=== PATIENT | male | born 1950 | race American Indian/Alaskan Native ===

== ENCOUNTER 2017-01-16 18:25 | Observation (INO) | payer MEDICARE ==
[2017-01-16 19:24] LABS: Basophils % (Auto) 0.3 % (0.0-1.8); Eosinophils % (Auto) 2.8 % (0.0-4.3); Hematocrit 37.6 % (35.5-45.6); Hemoglobin 12.6 gm/dl (11.8-15.2); Mean Corpuscular HGB Conc 34 % (32-34); Mean Corpuscular Hemoglobin 32 pg (28-32); Mean Corpuscular Volume 94 fl (84-94); Platelet Count 177 K/mm3 (140-440); Red Cell Distribution Width 12.9 % (13.2-15.2)
[2017-01-16 19:39] LABS: Anion Gap 19 mmol/L; Blood Urea Nitrogen 16 mg/dL (9-20); Calcium 8.8 mg/dL (8.4-10.2); Carbon Dioxide 25 mmol/L (22-30); Chloride 101.5 mmol/L (98-107); Glucose 173 mg/dL (75-100); Potassium 3.5 mmol/L (3.6-5.0); Sodium 142 mmol/L (137-145)
[2017-01-16 20:17] LABS: Bilirubin,Urine NEG (Negative); Blood,Urine MOD (Negative); Ketones,Urine NEG (Negative); Leukocyte Esterase,Urine NEG (Negative); Mucus,Urine FEW /HPF; Nitrite,Urine NEG (Negative); Protein,Urine <15 mg/dL mg/dL (Negative); Urobilinogen,Urine < 2.0 mg/dL (<2.0)
[2017-01-16] MEDS ORDERED: TYLENOL ONE (21:00)
[2017-01-16] MEDS ORDERED: TYLENOL PO ONE (21:02)
--- NOTE | 2017-01-16 23:47 | Emergency Department Report ---
ED Chest Pain HPI - General Chief Complaint: Chest Pain Stated Complaint: CHEST AND BACK PAIN Time Seen by Provider: 01/16/17 23:18 Source: patient Mode of arrival: Ambulatory Limitations: No Limitations - History of Present Illness Initial Comments: This is a 66-year-old Afro-Pakistani male presents to the emergency department from home with complaint of some left lower chest pain/shortness as been going on since Tuesday but worsened today. There is some radiation towards the back. He denies any shortness of breath, nausea, vomiting, fever or diaphoresis. He has not taken anything for symptoms prior to presentation. He has a past medical history of hypertension, high cholesterol, BPH, edema and a remote history of left kidney cancer. His primary care doctor is Dr. Ruiz. He does not have a label sewer. No recent travel or sick contacts at home. He denies any history of VA, CVA, PE/DVT. Severity scale (0 -10): 7 - Related Data Home Medications Medication Instructions Recorded Confirmed Last Taken Atenolol [Tenormin] 100 mg PO DAILY 01/16/17 01/16/17 Unknown Furosemide [Lasix TAB] 40 mg PO QDAY 01/16/17 01/16/17 Unknown Sildenafil Citrate [Viagra] 100 mg PO QDAY PRN 01/16/17 01/16/17 Unknown Valsartan/Hydrochlorothiazide 1 mg PO DAILY 01/16/17 01/16/17 Unknown [Diovan Hct 320-25 mg] Allergies Allergy/AdvReac Type Severity Reaction Status Date / Time No Known Allergies Allergy Unverified 01/16/17 18:42 GISSELL score - Gissell Score Age > 65: (1) Yes Aspirin use within the Past 7 Days: (0) No 3 or more CAD Risk Factors: (0) No 2 or more Angina events in past 24 hrs: (1) Yes Known CAD with more than 50% Stenosis: (0) No Elevated Cardiac Markers: (0) No ST Deviation Greater than 0.5mm: (0) No GISSELL Score: 2 ED Review of Systems ROS: Stated complaint: CHEST AND BACK PAIN Other details as noted in HPI Comment: All other systems reviewed and negative Constitutional: denies: chills, fever Eyes: denies: eye pain, eye discharge, vision change ENT: denies: ear pain, throat pain Respiratory: denies: cough, shortness of breath, wheezing Cardiovascular: chest pain. denies: palpitations Gastrointestinal: denies: abdominal pain, nausea, diarrhea Genitourinary: denies: urgency, dysuria Musculoskeletal: back pain. denies: arthralgia Skin: denies: rash, lesions Neurological: denies: headache, weakness, paresthesias ED Past Medical Hx - Past Medical History Hx Hypertension: Yes Additional medical history: high cholesterol,BPH,edema - Surgical History Additional Surgical History: left kidney CA-2006 - Social History Smoking Status: Never Smoker Substance Use Type: Alcohol - Medications Home Medications: Home Medications Medication Instructions Recorded Confirmed Last Taken Type Atenolol [Tenormin] 100 mg PO DAILY 01/16/17 01/16/17 Unknown History Furosemide [Lasix TAB] 40 mg PO QDAY 01/16/17 01/16/17 Unknown History Sildenafil Citrate [Viagra] 100 mg PO QDAY PRN 01/16/17 01/16/17 Unknown History Valsartan/Hydrochlorothiazide 1 mg PO DAILY 01/16/17 01/16/17 Unknown History [Diovan Hct 320-25 mg] ED Physical Exam - General Limitations: No Limitations - Other Other exam information: GENERAL: The patient is well-developed well-nourished. HEENT: Normocephalic. Atraumatic. Extraocular motions are intact. Patient has moist mucous membranes. Pupils equal reactive to light bilaterally. NECK: Supple. Trachea is benign. CHEST/LUNGS: Clear to auscultation. There is no respiratory distress noted. Patient does have some reproducible tenderness palpation to the left side of the chest wall just below the pectoral. HEART/CARDIOVASCULAR: Regular. There is no tachycardia. There is no gallop rub or murmur. ABDOMEN: Abdomen is soft, nontender. Patient has normal bowel sounds. There is no abdominal distention. Obese habitus. SKIN: There is no rash. There is no edema. There is no diaphoresis. NEURO: The patient is awake, alert, and oriented. The patient is cooperative. The patient has no focal neurologic deficits. The patient has normal speech. MUSCULOSKELETAL: There is no tenderness or deformity. There is no limitation range of motion. There is no evidence of acute injury. ED Course Vital Signs 01/16/17 01/16/17 01/16/17 18:36 20:50 21:06 Temperature 98.4 F 98.9 F Pulse Rate 61 59 L Respiratory 20 18 18 Rate Blood Pressure 181/107 195/114 Blood Pressure [Left] O2 Sat by Pulse 95 96 Oximetry 01/16/17 01/16/17 01/17/17 22:06 23:19 00:43 Temperature 98.5 F Pulse Rate 54 L 52 L Respiratory 18 20 Rate Blood Pressure 178/104 Blood Pressure 188/104 [Left] O2 Sat by Pulse 100 Oximetry 01/17/17 01/17/17 00:58 01:59 Temperature Pulse Rate 54 L Respiratory 18 18 Rate Blood Pressure Blood Pressure 151/105 [Left] O2 Sat by Pulse 100 100 Oximetry ED Medical Decision Making - Lab Data Result diagrams: 01/16/17 19:09 01/16/17 19:09 - EKG Data -: EKG Interpreted by Me EKG shows normal: sinus rhythm, axis (LAD), intervals, QRS complexes (LVH), ST- T waves Rate: normal - EKG Data When compared to previous EKG there are: previous EKG unavailable Interpretation: LVH - Radiology Data Radiology results: report reviewed, image reviewed interpreted by me: Chest x-ray did not show any acute process. Heart is normal shape and size. No effusions. No pneumothorax. No signs of pneumonia seen. CT angiography of the chest shows that the heart is enlarged. There is no pericardial effusion. There is no pulmonary embolism. The ascending thoracic aorta is ectatic at 4.3 cm in diameter. There is no dissection. Suboptimal inspiration. Mild fibrotic changes. No acute infiltrates. - Medical Decision Making 66-year-old male presents emergency Department with left-sided chest pain. So far patient has had negative troponins [address] angiography that did not show any pulmonary and wasn't. However the patient continues to left-sided chest pain with the risk factors of hypertension, advanced age, hyperlipidemia and he has not had a stress test in many years. For this reason the patient will be admitted to the hospital for further evaluation and possible cardio consultation. Patient has been accepted for admission by the hospitalist, Dr. Bravo. - Differential Diagnosis VA, PE, costochondritis, CHF, pneumonia Critical Care Time: No Critical care attestation.: If time is entered above; I have spent that time in minutes in the direct care of this critically ill patient, excluding procedure time. ED Disposition Clinical Impression: Chest pain, rule out acute myocardial infarction Chest pain Qualifiers: Chest pain type: unspecified Qualified Code(s): R07.9 - Chest pain, unspecified Hypertension Qualifiers: Hypertension type: essential hypertension Qualified Code(s): I10 - Essential ( primary) hypertension Disposition: OP ADMITTED IP TO THIS HOSP Is pt being admited?: Yes Does the pt Need Aspirin: Yes Condition: Stable Instructions: Chest Pain (ED), Hypertension (ED) Referrals: AYO RUIZ MD [Primary Care Provider] - 3-5 Days Time of Disposition: 05:23
[2017-01-17] MEDS ORDERED: NORMODYNE IV ONE (00:10)
[2017-01-17] MEDS ORDERED: MORPHINE IV ONE (00:10)
[2017-01-17] MEDS ORDERED: APRESOLINE ONE (00:42)
[2017-01-17] MEDS ORDERED: APRESOLINE IV ONE (00:55)
[2017-01-17] MEDS ORDERED: NACL ONE (02:05)
--- NOTE | 2017-01-17 03:55 | Cat Scan Report ---
FINAL REPORT PROCEDURE: CT ANGIO CHEST TECHNIQUE: Computerized tomographic angiography of the chest was performed after the IV injection of iodinated nonionic contrast including image processing. The image data was postprocessed using 2-dimensional multiplanar reformatted (MPR) and 3-dimensional (MIP and/or volume rendered) techniques. HISTORY: CP, elevated dimer COMPARISON: No prior studies are available for comparison. FINDINGS: Heart and pericardium: The heart is enlarged. There is no pericardial effusion.. Thoracic aorta: The ascending thoracic aorta is ectatic at 4.3 centimeters in diameter. There is no dissection. Thoracic aorta is slightly tortuous.. Pulmonary vasculature: There is no pulmonary embolism.. Lymph nodes: No enlarged thoracic lymph nodes. Lungs: There is suboptimal inspiration. There are mild fibrotic changes at the lung bases. There are no acute infiltrates.. Pleural space: No effusion, thickening, or pneumothorax. Musculoskeletal structures: There are deformities of right ribs numbers 8 9 which could be due to old trauma or congenital malformation.. Upper abdominal structures: Images of the upper abdomen suggests possibility of left nephrectomy. There is a probable cyst or hemangioma left lobe of the liver measuring 15 millimeters. IMPRESSION: The heart is enlarged. There is no pericardial effusion.. The ascending thoracic aorta is ectatic at 4.3 centimeters in diameter. There is no dissection. Thoracic aorta is slightly tortuous.. There is no pulmonary embolism.. There is suboptimal inspiration. There are mild fibrotic changes at the lung bases. There are no acute infiltrates..
[2017-01-17] MEDS ORDERED: BABY ASPIRIN PO ONE (05:23)
[2017-01-17] MEDS ORDERED: NITROSTAT SL PRN (05:34)
[2017-01-17] MEDS ORDERED: SODIUM CHLORIDE FLUSH SYRINGE 10 ML IV PRN (05:34)
[2017-01-17] MEDS ORDERED: MORPHINE IV PRN (05:39)
[2017-01-17] MEDS ORDERED: ZOFRAN IV PRN (05:39)
--- NOTE | 2017-01-17 05:46 | History and Physical Report ---
History of Present Illness Date of examination: 01/17/17 Date of admission: Neuro 01/17/2017 Chief complaint: Chief complaint is chest pain History of present illness: History of present illness, patient is a 66-year-old male with sharp pain in the precordial area radiating to the left upper extremity which started yesterday, pain was relieved with nitroglycerin and pain medication. There is no history of diaphoresis, no history of shortness of breath, no history of nausea vomiting, there is also no history of fever or chills and no cough Past History Past Medical History: hypertension, hyperlipidemia Past Surgical History: No surgical history Social history: lives with family Family history: no significant family history Medications and Allergies Allergies Allergy/AdvReac Type Severity Reaction Status Date / Time No Known Allergies Allergy Unverified 01/16/17 18:42 Home Medications Medication Instructions Recorded Confirmed Last Taken Type Atenolol [Tenormin] 100 mg PO DAILY 01/16/17 01/16/17 Unknown History Furosemide [Lasix TAB] 40 mg PO QDAY 01/16/17 01/16/17 Unknown History Sildenafil Citrate [Viagra] 100 mg PO QDAY PRN 01/16/17 01/16/17 Unknown History Valsartan/Hydrochlorothiazide 1 mg PO DAILY 01/16/17 01/16/17 Unknown History [Diovan Hct 320-25 mg] Active Meds: Active Medications Aspirin (Ecotrin) 325 mg PO QDAY [facility] Heparin Sodium (Porcine) (Heparin) 5,000 unit SUB-Q Q8HR [facility] Nitroglycerin (Nitrostat) 0.4 mg SL Q5M PRN PRN Reason: Chest Pain Nitroglycerin (Nitro-Bid 2%) 1 inch TP Q6H [facility] PRN Reason: Protocol Sodium Chloride (Sodium Chloride Flush Syringe 10 Ml) 10 ml IV PRN PRN PRN Reason: LINE FLUSH Review of Systems Constitutional: no weight loss, no weight gain, no fever, no chills, no sweats, no anorexia, no fatigue, no weakness, no malaise, no lethargy, no chronic headaches, no poor appetite, no daytime sleepiness Eyes: bilateral: other (BILATERAL EYE SYMPTOMS) Ears, nose, mouth and throat: no ear pain, no ear discharge, no tinnitis, no decreased hearing, no nose pain, no nasal congestion, no nasal discharge, no sinus pressure, no sinus pain, no bleeding gums, no dental pain, no mouth pain, no dysphagia, no hoarseness, no sore throat, no swelling in mouth, no swelling in throat, no post-nasal drip, no headache, no vertigo, no pain front of neck, no neck fullness/pressure, no neck lump Cardiovascular: chest pain, no orthopnea, no palpitations, no rapid/irregular heart beat, no edema, no syncope, no lightheadedness, no paroxysmal nocturnal dyspnea, no claudication, no phlebitis, no high blood pressure Respiratory: no cough, no cough with sputum, no excessive sputum, no hemoptysis , no shortness of breath, no dyspnea on exertion, no pleurisy, no pain, no respiratory infections, no home oxygen Gastrointestinal: no nausea, no vomiting, no diarrhea, no constipation, no melena, no hematochezia, no loss of appetite, no early satiety, no heartburn, no jaundice, no dyspepsia/bloating, no early satiety Genitourinary Male: no dysuria, no flank pain, no urinary frequency, no urinary hesitancy, no nocturia, no impotence, no decreased libido, no testicular pain Rectal: no pain, no bleeding, no hemorrhoids, no flatulence Musculoskeletal: no neck stiffness, no neck pain, no shooting arm pain, no arm numbness/tingling, no low back pain, no shooting leg pain, no leg numbness/ tingling, no hot joints, no morning stiffness, no muscle weakness, no muscle cramps, no myalgias, no frequent falls, no fractures, no loss of height, no prior amputations Integumentary: no rash, no pruritis, no redness, no sores, no wounds, no jaundice, no boils, no growths, no bullae, no lesions, no darkening of skin, no depigmentation, no dryness, no color changes, no change in hair/nails, no brittle nails, no striae, no hirsutism, no foot/leg ulcers, no onychomycosis Neurological: no head injury, no transient paralysis, no paralysis, no weakness , no parathesias, no numbness, no tingling, no seizures, no syncope, no tremors , no headaches, no migraines, no convulsions, no aphasia, no change in speech, no change in mentation, no confusion, no memory loss, no changes in smell/taste , no gait dysfunction, no motor disturbance, no sensory deficit, no double vision, no loss of vision, no hearing difficulties, no burning pain, no paralysis, no spasticity Psychiatric: no anxiety, no memory loss, no change in sleep habits, no sleep disturbances, no insomnia, no hypersomnia, no change in appetite, no change in libido, no suicidal ideation, no disorientation, no hallucinations, no paranoia , no depression, no hopelessness, no anhedonia, no anxiety attacks, no difficulties concentrating, no confusion, no irritability, no sadness/ tearfullness, no mood swings Endocrine: no cold intolerance, no heat intolerance, no polyphagia, no excessive thirst, no polydipsia, no polyuria, no nocturia, no excessive sweating , no flushing, no increase in ring/shoe/hat size, no proptosis, no deepening of the voice, no thyroid mass, no palpatations, no high blood sugars, no low blood sugars, no recent glucocorticoid use, no fatigue Hematologic/Lymphatic: no easy bruising, no easy bleeding, no lymphadenopathy, no lymphedema, no thrombophilia, no other Allergic/Immunologic: no urticaria, no allergic rhinitis, no wheezing, no persistent infections, no anaphylaxis, no angioedema, no gluten intolerance, no seasonal allergies Exam - Constitutional Vitals: Temp Pulse Resp BP Pulse Ox 98.5 F 54 L 18 151/105 100 01/16/17 23:19 01/17/17 01:59 01/17/17 01:59 01/17/17 01:59 01/17/17 01:59 General appearance: Present: no acute distress - EENT Eyes: Present: PERRL, EOM intact ENT: hearing intact, clear oral mucosa - Neck Neck: Present: supple, normal ROM - Respiratory Respiratory effort: normal - Cardiovascular Rhythm: regular Heart Sounds: Present: S1 & S2. Absent: systolic murmur, diastolic murmur, rub , click - Extremities Extremities: no ischemia, No edema Peripheral Pulses: within normal limits - Abdominal General gastrointestinal: Present: soft, non-tender, non-distended, normal bowel sounds. Absent: tender, distended, rigid Male genitourinary: Present: deferred - Rectal Rectal Exam: deferred - Integumentary Integumentary: Present: warm, dry. Absent: erythema, jaundice, rash, clammy - Musculoskeletal Musculoskeletal: strength equal bilaterally - Psychiatric Psychiatric: appropriate mood/affect Results - Labs CBC & Chem 7: 01/16/17 19:09 01/16/17 19:09 Labs: Laboratory Last Values WBC 8.0 K/mm3 (4.5-11.0) 01/16/17 19:09 RBC 4.00 M/mm3 (3.65-5.03) 01/16/17 19:09 Hgb 12.6 gm/dl (11.8-15.2) 01/16/17 19:09 Hct 37.6 % (35.5-45.6) 01/16/17 19:09 MCV 94 fl (84-94) 01/16/17 19:09 MCH 32 pg (28-32) 01/16/17 19:09 MCHC 34 % (32-34) 01/16/17 19:09 RDW 12.9 % (13.2-15.2) L 01/16/17 19:09 Plt Count 177 K/mm3 (140-440) 01/16/17 19:09 Lymph % (Auto) 21.1 % (13.4-35.0) 01/16/17 19:09 [place] % (Auto) 9.0 % (0.0-7.3) H 01/16/17 19:09 Eos % (Auto) 2.8 % (0.0-4.3) 01/16/17 19:09 Baso % (Auto) 0.3 % (0.0-1.8) 01/16/17 19:09 Lymph # 1.7 K/mm3 (1.2-5.4) 01/16/17 19:09 [place] # 0.7 K/mm3 (0.0-0.8) 01/16/17 19:09 Eos # 0.2 K/mm3 (0.0-0.4) 01/16/17 19:09 Baso # 0.0 K/mm3 (0.0-0.1) 01/16/17 19:09 Seg Neutrophils % 66.8 % (40.0-70.0) 01/16/17 19:09 Seg Neutrophils # 5.3 K/mm3 (1.8-7.7) 01/16/17 19:09 D-Dimer 263.00 ng/mlDDU (0-234) H 01/16/17 23:46 Sodium 142 mmol/L (137-145) 01/16/17 19:09 Potassium 3.5 mmol/L (3.6-5.0) L 01/16/17 19:09 Chloride 101.5 mmol/L (98-107) 01/16/17 19:09 Carbon Dioxide 25 mmol/L (22-30) 01/16/17 19:09 Anion Gap 19 mmol/L 01/16/17 19:09 BUN 16 mg/dL (9-20) 01/16/17 19:09 Creatinine 1.0 mg/dL (0.8-1.5) 01/16/17 19:09 Estimated GFR > 60 ml/min 01/16/17 19:09 BUN/Creatinine Ratio 16.00 % 01/16/17 19:09 Glucose 173 mg/dL (75-100) H 01/16/17 19:09 Calcium 8.8 mg/dL (8.4-10.2) 01/16/17 19:09 Troponin T < 0.010 ng/mL (0.00-0.029) 01/17/17 00:36 NT-Pro-B Natriuret Pep 489.3 pg/mL (0-900) 01/16/17 21:26 Urine Color Yellow (Yellow) 01/16/17 19:51 Urine Turbidity Clear (Clear) 01/16/17 19:51 Urine pH 6.0 (5.0-7.0) 01/16/17 19:51 Ur Specific [place] 1.018 (1.003-1.030) 01/16/17 19:51 Urine Protein <15 mg/dl mg/dL (Negative) 01/16/17 19:51 Urine Glucose (UA) 50 mg/dL (Negative) 01/16/17 19:51 Urine Ketones Neg mg/dL (Negative) 01/16/17 19:51 Urine Blood Mod (Negative) 01/16/17 19:51 Urine Nitrite Neg (Negative) 01/16/17 19:51 Urine Bilirubin Neg (Negative) 01/16/17 19:51 Urine Urobilinogen < 2.0 mg/dL (<2.0) 01/16/17 19:51 Ur Leukocyte Esterase Neg (Negative) 01/16/17 19:51 Urine WBC (Auto) 2.0 /HPF (0.0-6.0) 01/16/17 19:51 Urine RBC (Auto) 5.0 /HPF (0.0-6.0) 01/16/17 19:51 Urine Mucus Few /HPF 01/16/17 19:51 Assessment and Plan - Patient Problems (1) Chest pain Current Visit: Yes Status: Acute Qualifiers: Chest pain type: unspecified Qualified Code(s): R07.9 - Chest pain, unspecified Plan to address problem: Patient will be placed on observation using chest pain pathway and will have cardiac enzymes checked every 6 hours 2 more levels, patient will be on IV morphine 2 mg every 3 hours as needed for pain and IV Zofran 4 mg every 6 hours as needed for nausea vomiting. Patient will be on Nitropaste 1 inch to anterior chest wall every 8 hours and will have a lexicon stress test done this morning. Patient will be on when necessary medications like Tylenol by mouth for fever or headache and sublingual nitroglycerin as needed for breakthrough chest pain. Patient will be on aspirin 325 mg by mouth daily and oxygen by nasal cannula by chest pain protocol the patient will be on subcutaneous heparin 5000 units every 8 hours for DVT prophylaxis. (2) Hypertension Current Visit: Yes Status: Acute Qualifiers: Hypertension type: essential hypertension Qualified Code(s): I10 - Essential (primary) hypertension
[2017-01-17] MEDS ORDERED: BABY ASPIRIN ONE (06:08)
--- NOTE | 2017-01-17 07:33 | Admit Criteria Form ---
Admission Criteria Documentation: CHEST PAIN Clinical Indications for Admission to Inpatient Care (Place 'X' for any and all applicable criteria): Admission is indicated for chest pain and ANY ONE of the following(1)(2)(3)(4)(5 ): [ ]I. Angina with acute coronary syndrome (Also use Myocardial Infarction or Angina guideline) [ ]II. Hemodynamic instability [ ]III. Angina needing acute intervention as indicated by ALL of the following( 11)(12): [ ]a) Unstable angina is present as indicated by angina that is ANY ONE of the following: [ ]i) New onset [ ]ii) Nocturnal [ ]iii) Prolonged at rest [ ]iv) Progressive [X]b) Angina warrants acute intervention as indicated by ANY ONE of the following: [ ]i) Recurrent angina (e.g, not responding as previously to treatment) [ ]ii) Angina at rest or with low-level activities despite initial medical therapy [ ]iii) New or presumably new ST-segment depression on ECG [ ]iv) Signs or symptoms of heart failure (eg, dyspnea, pulmonary edema) [ ]v) New or worsening mitral regurgitation [ ]vi) Hemodynamic instability [ ]vii) Dangerous arrhythmia (eg, sustained ventricular tachycardia) [ ]viii) History of percutaneous coronary intervention within 6 months [ ]ix) History of coronary artery bypass graft surgery [X]x) GISSELL risk score of 2 or greater[A] [ ]xi) History of Diabetes(14) [ ]xii) High-risk cardiac ischemia findings on noninvasive testing (e.g, echocardiogram, treadmill testing, nuclear scan) [ ]xiii) Chronic renal insufficiency (ie, estimated GFR less than 60 mL/min/1.732m) [ ]xiv) Left ventricular ejection fraction less than 40% [ ]IV. Evidence of ME (eg, cardiac biomarkers positive, ST-segment elevation on ECG) also use Myocardial Infarction Criteria Form. [ ]V. Pulmonary edema [ ]. Respiratory distress [ ]VII. Chest pain indicative of serious diagnosis other than coronary artery disease (eg, aortic dissection) [ ]VIII. Contraindications and/or Inappropriate clinical situations for Observational Care in patients with Chest Pain, when ANY ONE of the following is required: [ ]a) Patient with risk factor for pulmonary embolism, acute coronary syndrome and myocardial infarction (18) [ ]b) Patient with Pulmonary embolism require an average LOS of 4.3 days, therefore emergency department observation management is inappropriate 18,23 [ ]c) Painful condition/s in the elderly, have the highest rate of recidivism after emergency department observation management (10.8%) 20,21,22 [ ]d) Elevated cardiac biomarker requires intensive and exhaustive care (19) [X]IX. General contraindications and/or Inappropriate clinical situations for Observational Care in patients with Chest Pain, when ANY ONE of the following is required: [X]a) Prediction of prolongation of LOS based on ANY ONE of the following may be considered as a contraindication for observational care 2, 3, 4, 5, 6, 7, 8, 9, 10, 11 [X]i) Age > 65 yrs. [ ]ii) Patient arriving by ambulance [ ]iii) Patient with high acuity [ ]iv) Patient requiring vital sign monitoring [ ]v) Patient on IV medication [X]b) Systolic blood pressures 180mmHg 3,12 [ ]c) Patient with altered mental status including delirium and other alteration of consciousness, (3) [ ]d) Patient whose discharge disposition will be to a assisted home or rehabilitation home should not be managed in Emergency Department Observation Unit. CMS rule requires 3 days hospital stay before such placement. 3,13 [ ]e) Patient with failure to thrive due to broad array of etiologies 3,16,17 [ ]f) Inability to ambulate 3,14 Extended stay beyond goal length of stay may be needed for (1)(28): [ ]a) Specific condition diagnosed after evaluation (eg, pulmonary embolism, aortic dissection) [ ]b) Unstable angina [ ]c) Continued suspicion of acute coronary syndrome with inability to complete needed cardiac evaluation (eg, patient clinically unable to undergo stress testing) [ ]d) Myocardial infarction (Contents from ANGINA and CHEST PAIN clinical indications for admission to inpatient care have been integrated in this form) The original [employer] content created by [employer] has been revised. The portions of the content which have been revised are identified through the use of italic text or in bold, and [facility] has neither reviewed nor approved the modified material. All other unmodified content is copyright [employer]. Please see references footnoted in the original [facility] edition 2016 Admission Criteria Met: Yes
[2017-01-17 08:11] LABS: Creatine Kinase MB 2.7 ng/mL (0.0-4.0)
[2017-01-17 08:14] LABS: Creatine Kinase 219 units/L (55-170)
[2017-01-17] MEDS: HEPARIN SUB-Q SCH ×2 (08:20→16:00)
[2017-01-17] MEDS: NITRO-BID 2% TP SCH ×3 (08:20→16:00)
[2017-01-17] MEDS ORDERED: LEXISCAN IV ONE (08:39)
[2017-01-17] MEDS ORDERED: TYLENOL PO PRN (08:46)
--- NOTE | 2017-01-17 09:23 | XRay Report ---
CHEST 2 VIEWS INDICATION: Shortness of breath, edema, chest pain. COMPARISON: None similar. FINDINGS: Frontal and lateral chest radiographs demonstrate limited inspiration with exaggerated cardiomediastinal silhouette and crowded lung markings centrally and towards the bases. No large pleural effusions or CHF. Slight aortic knob calcifications. Bony bridging of possibly right fifth and sixth ribs posteriorly noted. Mild thoracic kyphosis. Motion artifact partly limits the lateral view. CONCLUSION: Hypoinflation without definite acute chest process, as described. Thank you for the opportunity to participate in this patient's care.
--- NOTE | 2017-01-17 09:24 | Discharge Summary ---
Providers - Providers Date of Admission: 01/17/17 05:30 Date of discharge: 01/17/17 Attending physician: MADELIN LATIF MD 01/17/17 Consult to Cardiac Rehabilitation [CONS] Routine Reason For Exam: Phase I Primary care physician: AYO WYLIE Hospitalization Reason for admission: chest pain Condition: Stable Hospital course: patient is a 66-year-old male with sharp pain in the precordial area radiating to the left upper extremity which started yesterday, pain was relieved with nitroglycerin and pain medication. There is no history of diaphoresis, no history of shortness of breath, no history of nausea vomiting, there is also no history of fever or chills and no cough. Patient was scheduled for stress test which was normal. On my review and examination of the patient he does have reproducible pain on the left precordial area. The patient states that he feels more of a sore and has relieved significantly since presentation to the hospital. He denies any pleuritic component to it. He denies any recent fall. I recommended NSAIDs when necessary. And to follow up with cardiology outpatient. I discussed with the patient and the the patient and spouse both agree with the patient's blood pressure has been significantly elevated his primary care doctor is working diligently to get this result but the patient has not been too compliant with checking his blood pressure he promises to start keeping a blood pressure diary. Weight loss modality was also stressed in detail. The patient did have an elevated d-dimer for which a CTA was done and was negative for pulmonary embolism. I recommended to continue age appropriate cancer screening including colonoscopy the patient verbalized understanding. Discharge diagnosis * Atypical chest pain likely costochondritis * Hypertensive urgency * Morbid obesity BMI 37.9 Disposition: DISCHARGED TO HOME OR SELFCARE Time spent for discharge: 35 MINS Core Measure Documentation - Palliative Care Palliative Care/ Comfort Measures: Not Applicable - Core Measures Any of the following diagnoses?: none - VTE Discharge Requirements Deep Vein Thrombosis/Pulmonary Embolism Present on Admission: No Exam - Physical Exam Narrative exam: VITAL SIGNS: Reviewed. GENERAL: The patient appeared well nourished and normally developed. Vital signs as documented. HEAD: No signs of head trauma. EYES: Pupils are equal. Extraocular motions intact. EARS: Hearing grossly intact. MOUTH: Oropharynx is normal. NECK: No adenopathy, no JVD. CHEST: Chest with clear breath sounds bilaterally. No wheezes, rales, or rhonchi. CARDIAC: Regular rate and rhythm. S1 and S2, without murmurs, gallops, or rubs. VASCULAR: No Edema. Peripheral pulses normal and equal in all extremities. ABDOMEN: Soft, without detectable tenderness. No sign of distention. No rebound or guarding, and no masses palpated. Bowel Sounds normal. MUSCULOSKELETAL: Mild tenderness in the left submammary area. Good range of motion of all major joints. Extremities without clubbing, cyanosis or edema. NEUROLOGIC EXAM: Alert and oriented x 3. No focal sensory or strength deficits. Speech normal. Follows commands. PSYCHIATRIC: Mood normal. SKIN: No rash or lesions. - Constitutional Vitals: Temp Pulse Resp BP Pulse Ox 98.5 F 57 L 21 151/105 92 01/16/17 23:19 01/17/17 02:01 01/17/17 02:01 01/17/17 02:01 01/17/17 02:01 Plan Activity: advance as tolerated, fall precautions Diet: low fat, low salt Special Instructions: record daily BP diary Follow up with: AYO WYLIE MD [Primary Care Provider] - 3-5 Days VILLA MONAE MD [Staff Physician] - 7 Days
[2017-01-17] MEDS ORDERED: TENORMIN PO SCH (10:00)
[2017-01-17] MEDS ORDERED: LASIX PO SCH (10:00)
[2017-01-17] MEDS ORDERED: DIOVAN PO SCH (10:00)
[2017-01-17] MEDS ORDERED: HCTZ PO SCH (10:00)
[2017-01-17] MEDS: PERCOCET 5/325 PO PRN ×2 (11:40→14:30)
[2017-01-17 11:54] VITALS: BP 173/101
[2017-01-17] MEDS ORDERED: PNEUMOVAX 23 IM ONE (12:00)
[2017-01-17 13:06] LABS: Creatine Kinase MB 2.5 ng/mL (0.0-4.0)
[2017-01-17 13:10] LABS: Creatine Kinase 193 units/L (55-170)
[2017-01-17] MEDS ORDERED: APRESOLINE IV PRN (13:39)
--- NOTE | 2017-01-17 22:27 | Treadmill Report ---
THALLIUM STRESS REPORT LEFT VENTRICLE: Left ventricle appears at the upper limits of normal in size. Perfusion study demonstrates homogeneous uptake of the tracer in all segments. No significant perfusion defects identified. Gated analysis demonstrates well preserved left ventricular systolic function, ejection fraction 54%. CONCLUSION: Normal myocardial perfusion study. JOB# [id number] CA/NTS
[2017-01-18] MEDS ORDERED: ECOTRIN PO SCH (10:00)
== END 2017-01-17 16:48 | disposition home or self-care (01) ==
LOC: ED 18:25 → 4A 01-17 05:30
PROVIDERS: ADMIT Internal Medicine; ATTEND Internal Medicine
DX: R07.2 Precordial pain (principal); I10 Essential (primary) hypertension; E78.5 Hyperlipidemia, unspecified; I16.0 Hypertensive urgency; E66.01 Morbid (severe) obesity due to excess calories; Z68.37 Body mass index [BMI] 37.0-37.9, adult
CPT/HCPCS: 36415; 71020; 71275; 78452; 80048; 81001; 82550; 82553; 83880; 84484; 85025; 85379; 93005; 93010; 93017; 96374; 96375; 99285; A9502; G0378; J0360; J1644; J2270; J2785; Q9967

== ENCOUNTER 2021-08-06 19:01 | Inpatient (IN) | payer MEDICARE ==
--- NOTE | 2021-08-06 20:38 | Emergency Department Report ---
ED General Adult HPI - General Chief complaint: Dyspnea/Respdistress Stated complaint: FLUID OVERLOAD Time Seen by Provider: 08/06/21 20:15 Source: patient Mode of arrival: Ambulatory Limitations: No Limitations - History of Present Illness Initial comments: The patient presents to the emergency department the chief complaint of increased shortness of breath over the last 2 months. 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 Canales who sent the patient to the emergency department for concerns of volume overload. Patient denies any chest pain but states that 6 weeks ago he weighed approximately 272 pounds and today at the doctor's office he weighed approximately 297 pounds. -: Gradual Severity scale (0 -10): 0 Consistency: constant Improves with: none Worsens with: none Associated Symptoms: denies other symptoms Treatments Prior to Arrival: none - Related Data Home Medications Medication Instructions Recorded Confirmed Last Taken Atenolol [Tenormin] 100 mg PO DAILY 01/16/17 01/16/17 Unknown Furosemide [Lasix TAB] 40 mg PO QDAY 01/16/17 01/16/17 Unknown Sildenafil Citrate [Viagra] 100 mg PO QDAY PRN 01/16/17 01/16/17 Unknown Valsartan/Hydrochlorothiazide 1 mg PO DAILY 01/16/17 01/16/17 Unknown [Diovan Hct 320-25 mg] Allergies Allergy/AdvReac Type Severity Reaction Status Date / Time No Known Allergies Allergy Unverified 01/16/17 18:42 ED Review of Systems ROS: Stated complaint: FLUID OVERLOAD Other details as noted in HPI Constitutional: denies: chills, fever Eyes: denies: eye pain, eye discharge, vision change ENT: denies: ear pain, throat pain Respiratory: SOB with exertion. denies: cough, shortness of breath, wheezing Cardiovascular: denies: chest pain, palpitations Endocrine: no symptoms reported Gastrointestinal: denies: abdominal pain, nausea, diarrhea Genitourinary: denies: urgency, dysuria Musculoskeletal: denies: back pain, joint swelling, arthralgia Skin: denies: rash, lesions Neurological: denies: headache, weakness, paresthesias Psychiatric: denies: anxiety, depression Hematological/Lymphatic: denies: easy bleeding, easy bruising ED Past Medical Hx - Past Medical History Previous Medical History?: Yes Hx Hypertension: Yes Hx Heart Attack/AMI: No Hx Congestive Heart Failure: Yes Hx Deep Vein Thrombosis: No Hx Pulmonary Embolism: No Hx Renal Disease: No Hx Sickle Cell Disease: No Hx Kidney Stones: No Hx Asthma: No Hx COPD: No Hx Tuberculosis: No Hx HIV: No Additional medical history: high cholesterol,BPH,edema - Surgical History Past Surgical History?: Yes Hx Coronary Stent: No Hx Open Heart Surgery: No Hx Pacemaker: No Hx Internal Defibrillator: No Hx Cholecystectomy: No Hx Appendectomy: No Hx Breast Surgery: No Additional Surgical History: left kidney CA-2006 - Social History Smoking Status: Never Smoker - Medications Home Medications: Home Medications Medication Instructions Recorded Confirmed Last Taken Type Atenolol [Tenormin] 100 mg PO DAILY 01/16/17 01/16/17 Unknown History Furosemide [Lasix TAB] 40 mg PO QDAY 01/16/17 01/16/17 Unknown History Sildenafil Citrate [Viagra] 100 mg PO QDAY PRN 01/16/17 01/16/17 Unknown History Valsartan/Hydrochlorothiazide 1 mg PO DAILY 01/16/17 01/16/17 Unknown History [Diovan Hct 320-25 mg] ED Physical Exam - General Limitations: No Limitations General appearance: alert, in no apparent distress - Head Head exam: Present: atraumatic, normocephalic - Eye Eye exam: Present: normal appearance, PERRL, EOMI - ENT ENT exam: Present: mucous membranes moist - Neck Neck exam: Present: normal inspection - Respiratory Respiratory exam: Present: decreased breath sounds. Absent: respiratory distre ss - Cardiovascular Cardiovascular Exam: Present: regular rate, normal rhythm. Absent: systolic murmur, diastolic murmur, rubs, gallop - GI/Abdominal GI/Abdominal exam: Present: soft, normal bowel sounds. Absent: distended, tenderness - Rectal Rectal exam: Present: deferred - Extremities Exam Extremities exam: Present: other (3+ pitting edema of bilateral lower extremities that extends up to the knees.) - Back Exam Back exam: Present: normal inspection - Neurological Exam Neurological exam: Present: alert, oriented X3 - Psychiatric Psychiatric exam: Present: normal affect, normal mood - Skin Skin exam: Present: warm, dry, intact, normal color. Absent: rash ED Course Vital Signs 08/06/21 08/06/21 19:04 21:09 Temperature 97.3 F L 98.3 F Pulse Rate 76 132 H Respiratory 20 22 Rate Blood Pressure 104/76 Blood Pressure 127/82 [Right] O2 Sat by Pulse 94 96 Oximetry ED Medical Decision Making - Lab Data Result diagrams: 08/06/21 20:46 08/06/21 20:46 Lab Results 08/06/21 08/06/21 08/06/21 Range/Units 20:46 20:46 20:46 WBC 4.9 (4.5-11.0) K/mm3 RBC 4.07 (3.65-5.03) M/mm3 Hgb 12.7 (11.8-15.2) gm/dl Hct 38.9 (35.5-45.6) % MCV 95 H (84-94) fl MCH 31 (28-32) pg MCHC 33 (32-34) % RDW 13.5 (13.2-15.2) % Plt Count 158 (140-440) K/mm3 Lymph % (Auto) 27.0 (13.4-35.0) % [place] % (Auto) 15.2 H (0.0-7.3) % Eos % (Auto) 1.8 (0.0-4.3) % Baso % (Auto) 0.6 (0.0-1.8) % Lymph # (Auto) 1.3 (1.2-5.4) K/mm3 [place] # (Auto) 0.8 (0.0-0.8) K/mm3 Eos # (Auto) 0.1 (0.0-0.4) K/mm3 Baso # (Auto) 0.0 (0.0-0.1) K/mm3 Seg Neutrophils % 55.4 (40.0-70.0) % Seg Neutrophils # 2.7 (1.8-7.7) K/mm3 PT 15.2 H (12.2-14.9) Sec. INR 1.08 (0.87-1.13) APTT 27.9 (24.2-36.6) Sec. Sodium 140 (137-145) mmol/L Potassium 3.3 L (3.6-5.0) mmol/L Chloride 100.0 (98-107) mmol/L Carbon Dioxide 25 (22-30) mmol/L Anion Gap 18 mmol/L BUN 42 H (9-20) mg/dL Creatinine 1.7 H (0.8-1.3) mg/dL Estimated GFR 48 ml/min BUN/Creatinine Ratio 25 % Glucose 117 H (75-100) mg/dL Calcium 9.0 (8.4-10.2) mg/dL Magnesium 1.80 (1.7-2.3) mg/dL Total Bilirubin 0.50 (0.1-1.2) mg/dL Direct Bilirubin 0.2 (0-0.2) mg/dL Indirect Bilirubin 0.3 mg/dL AST 33 (5-40) units/L ALT 51 (7-56) units/L Alkaline Phosphatase 53 (35-129) units/L Troponin T < 0.010 (0.00-0.029) ng/mL NT-Pro-B Natriuret Pep (0-900) pg/mL Total Protein 6.3 (6.3-8.2) g/dL Albumin 3.6 L (3.9-5) g/dL Albumin/Globulin Ratio 1.3 % Urine Color (Yellow) Urine Turbidity (Clear) Urine pH (5.0-7.0) Ur Specific [place] (1.003-1.030) Urine Protein (Negative) mg/dL Urine Glucose (UA) (Negative) mg/dL Urine Ketones (Negative) mg/dL Urine Blood (Negative) Urine Nitrite (Negative) Urine Bilirubin (Negative) Urine Urobilinogen (<2.0) mg/dL Ur Leukocyte Esterase (Negative) Urine WBC (Auto) (0.0-6.0) /HPF Urine RBC (Auto) (0.0-6.0) /HPF 08/06/21 08/06/21 Range/Units 20:46 21:09 WBC (4.5-11.0) K/mm3 RBC (3.65-5.03) M/mm3 Hgb (11.8-15.2) gm/dl Hct (35.5-45.6) % MCV (84-94) fl MCH (28-32) pg MCHC (32-34) % RDW (13.2-15.2) % Plt Count (140-440) K/mm3 Lymph % (Auto) (13.4-35.0) % [place] % (Auto) (0.0-7.3) % Eos % (Auto) (0.0-4.3) % Baso % (Auto) (0.0-1.8) % Lymph # (Auto) (1.2-5.4) K/mm3 [place] # (Auto) (0.0-0.8) K/mm3 Eos # (Auto) (0.0-0.4) K/mm3 Baso # (Auto) (0.0-0.1) K/mm3 Seg Neutrophils % (40.0-70.0) % Seg Neutrophils # (1.8-7.7) K/mm3 PT (12.2-14.9) Sec. INR (0.87-1.13) APTT (24.2-36.6) Sec. Sodium (137-145) mmol/L Potassium (3.6-5.0) mmol/L Chloride (98-107) mmol/L Carbon Dioxide (22-30) mmol/L Anion Gap mmol/L BUN (9-20) mg/dL Creatinine (0.8-1.3) mg/dL Estimated GFR ml/min BUN/Creatinine Ratio % Glucose (75-100) mg/dL Calcium (8.4-10.2) mg/dL Magnesium (1.7-2.3) mg/dL Total Bilirubin (0.1-1.2) mg/dL Direct Bilirubin (0-0.2) mg/dL Indirect Bilirubin mg/dL AST (5-40) units/L ALT (7-56) units/L Alkaline Phosphatase (35-129) units/L Troponin T (0.00-0.029) ng/mL NT-Pro-B Natriuret Pep 4020 H (0-900) pg/mL Total Protein (6.3-8.2) g/dL Albumin (3.9-5) g/dL Albumin/Globulin Ratio % Urine Color Yellow (Yellow) Urine Turbidity Clear (Clear) Urine pH 6.0 (5.0-7.0) Ur Specific [place] 1.009 (1.003-1.030) Urine Protein 100 mg/dl (Negative) mg/dL Urine Glucose (UA) Neg (Negative) mg/dL Urine Ketones Neg (Negative) mg/dL Urine Blood Neg (Negative) Urine Nitrite Neg (Negative) Urine Bilirubin Neg (Negative) Urine Urobilinogen < 2.0 (<2.0) mg/dL Ur Leukocyte Esterase Neg (Negative) Urine WBC (Auto) 1.0 (0.0-6.0) /HPF Urine RBC (Auto) < 1.0 (0.0-6.0) /HPF - Radiology Data Radiology results: report reviewed - Medical Decision Making Given IV Lasix Critical Care Time: Yes Critical care time in (mins) excluding proc time.: 35 Critical care attestation.: If time is entered above; I have spent that time in minutes in the direct care of this critically ill patient, excluding procedure time. ED Disposition Clinical Impression: CHF (congestive heart failure) Disposition: ADMITTED INPATIENT Is pt being admited?: Yes Does the pt Need Aspirin: No Condition: Fair Referrals: AYO WYLIE MD [Primary Care Provider] - 3-5 Days
--- NOTE | 2021-08-06 21:00 | XRay Report ---
XR chest 1V ap INDICATION / CLINICAL INFORMATION: volume overload COMPARISON: 01/16/2017 FINDINGS: SUPPORT DEVICES: None. HEART / MEDIASTINUM: Cardiac silhouette is prominent. LUNGS / PLEURA: No acute airspace disease. Mild interstitial edema. Costophrenic sulci are sharp. No pneumothorax. ADDITIONAL FINDINGS: No significant additional findings. IMPRESSION: 1. Cardiomegaly with mild interstitial edema. Signer Name: Reginaldo Bryson MD Signed: 08/06/2021 8:55 PM Workstation Name: [id number]
[2021-08-06 21:02] LABS: Basophils % (Auto) 0.6 % (0.0-1.8); Eosinophils # (Auto) 0.1 K/mm3 (0.0-0.4); Eosinophils % (Auto) 1.8 % (0.0-4.3); Hematocrit 38.9 % (35.5-45.6); Hemoglobin 12.7 gm/dl (11.8-15.2); Lymphocytes # (Auto) 1.3 K/mm3 (1.2-5.4); Mean Corpuscular HGB Conc 33 % (32-34); Mean Corpuscular Volume 95 fl (84-94); Monocytes # (Auto) 0.8 K/mm3 (0.0-0.8); Monocytes % (Auto) 15.2 % (0.0-7.3); Platelet Count 158 K/mm3 (140-440); Red Blood Count 4.07 M/mm3 (3.65-5.03); Red Cell Distribution Width 13.5 % (13.2-15.2)
[2021-08-06 21:12] LABS: INR 1.08 (0.87-1.13); Partial Thromboplastin Time 27.9 Sec. (24.2-36.6)
[2021-08-06 21:19] LABS: Bilirubin,Urine NEG (Negative); Blood,Urine NEG (Negative); Color,Urine Yellow (Yellow); RBC,Urine < 1.0 /HPF (0.0-6.0); Urobilinogen,Urine < 2.0 mg/dL (<2.0)
[2021-08-06 21:19] LABS: Alanine Aminotransferase 51 units/L (7-56); Albumin 3.6 g/dL (3.9-5); BUN/Creatinine Ratio 25; Bilirubin,Direct 0.2 mg/dL (0-0.2); Blood Urea Nitrogen 42 mg/dL (9-20); Hemolysis Index 7
[2021-08-06] MEDS ORDERED: FUROSEMIDE 40 MG/4 ML INJ IV ONE (23:26)
[2021-08-07] MEDS ORDERED: ONDANSETRON 4 MG/2 ML INJ IV PRN (01:08)
[2021-08-07] MEDS ORDERED: oxyCODONE /ACETAMINOPHEN 5-325MG TAB PO PRN (01:08)
[2021-08-07] MEDS ORDERED: ALBUTEROL 2.5 MG/3 ML NEBU IH PRN (01:08)
[2021-08-07] MEDS ORDERED: NITROGLYCERIN 0.4 MG TAB SUBL SL PRN (01:08)
[2021-08-07] MEDS ORDERED: ACETAMINOPHEN 325 MG TAB PO PRN (01:08)
--- NOTE | 2021-08-07 01:16 | History and Physical Report ---
History of Present Illness Date of examination: 08/07/21 Date of admission: 08/07/21 Chief complaint: Dyspnea Respiratory distress History of present illness: 70 years old male with past medical history of hypertension hyperlipidemia CHF was brought to the hospital because of increased shortness of breath over the last 2 months. 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 Canales who sent the patient to the emergency department for concerns of volume overload. Patient denies any chest pain but states that 6 weeks ago he weighed approximately 272 pounds and today at the doctor's office he weighed approximately 297 pounds. In the emergency room patient troponin is 0.010 and proBNP is 4020. Chest x-ray showed cardiomegaly with mild interstitial edema. We will going to admit the patient with the diagnosis of CHF exacerbation will consult cardiology for evaluation Med rec is done Past History Past Medical History: heart failure, hypertension, hyperlipidemia Medications and Allergies Allergies Allergy/AdvReac Type Severity Reaction Status Date / Time No Known Allergies Allergy Unverified 01/16/17 18:42 Home Medications Medication Instructions Recorded Confirmed Last Taken Type Atenolol [Tenormin] 100 mg PO DAILY 01/16/17 01/16/17 Unknown History Furosemide [Lasix TAB] 40 mg PO QDAY 01/16/17 01/16/17 Unknown History Sildenafil Citrate [Viagra] 100 mg PO QDAY PRN 01/16/17 01/16/17 Unknown History Valsartan/Hydrochlorothiazide 1 mg PO DAILY 01/16/17 01/16/17 Unknown History [Diovan Hct 320-25 mg] Review of Systems All systems: negative Cardiovascular: orthopnea, edema, shortness of breath, dyspnea on exertion Respiratory: shortness of breath, dyspnea on exertion Exam - Constitutional Vitals: Temp Pulse Resp BP Pulse Ox 98.3 F 132 H 22 127/82 96 08/06/21 21:09 08/06/21 21:09 08/06/21 21:09 08/06/21 21:09 08/06/21 21:09 General appearance: Present: no acute distress, well-nourished - EENT Eyes: Present: PERRL ENT: hearing intact, clear oral mucosa - Neck Neck: Present: supple, normal ROM - Respiratory Respiratory effort: normal Respiratory: bilateral: rales - Cardiovascular Heart Sounds: Present: S1 & S2. Absent: rub, click - Extremities Extremities: pulses symmetrical Extremity abnormal: edema Peripheral Pulses: within normal limits - Abdominal General gastrointestinal: Present: soft, non-tender, non-distended, normal bowel sounds Male genitourinary: Present: normal - Integumentary Integumentary: Present: clear, warm, dry - Musculoskeletal Musculoskeletal: gait normal, strength equal bilaterally - Psychiatric Psychiatric: appropriate mood/affect, intact judgment & insight - Neurologic Neurologic: CNII-XII intact, moves all extremities HEART Score - HEART Score Troponin: Troponin T < 0.010 ng/mL (0.00-0.029) 08/06/21 20:46 Results - Labs CBC & Chem 7: 08/06/21 20:46 08/06/21 20:46 Labs: Laboratory Last Values WBC 4.9 K/mm3 (4.5-11.0) 08/06/21 20:46 RBC 4.07 M/mm3 (3.65-5.03) 08/06/21 20:46 Hgb 12.7 gm/dl (11.8-15.2) 08/06/21 20:46 Hct 38.9 % (35.5-45.6) 08/06/21 20:46 MCV 95 fl (84-94) H 08/06/21 20:46 MCH 31 pg (28-32) 08/06/21 20:46 MCHC 33 % (32-34) 08/06/21 20:46 RDW 13.5 % (13.2-15.2) 08/06/21 20:46 Plt Count 158 K/mm3 (140-440) 08/06/21 20:46 Lymph % (Auto) 27.0 % (13.4-35.0) 08/06/21 20:46 [place] % (Auto) 15.2 % (0.0-7.3) H 08/06/21 20:46 Eos % (Auto) 1.8 % (0.0-4.3) 08/06/21 20:46 Baso % (Auto) 0.6 % (0.0-1.8) 08/06/21 20:46 Lymph # (Auto) 1.3 K/mm3 (1.2-5.4) 08/06/21 20:46 [place] # (Auto) 0.8 K/mm3 (0.0-0.8) 08/06/21 20:46 Eos # (Auto) 0.1 K/mm3 (0.0-0.4) 08/06/21 20:46 Baso # (Auto) 0.0 K/mm3 (0.0-0.1) 08/06/21 20:46 Seg Neutrophils % 55.4 % (40.0-70.0) 08/06/21 20:46 Seg Neutrophils # 2.7 K/mm3 (1.8-7.7) 08/06/21 20:46 PT 15.2 Sec. (12.2-14.9) H 08/06/21 20:46 INR 1.08 (0.87-1.13) 08/06/21 20:46 APTT 27.9 Sec. (24.2-36.6) 08/06/21 20:46 Sodium 140 mmol/L (137-145) 08/06/21 20:46 Potassium 3.3 mmol/L (3.6-5.0) L 08/06/21 20:46 Chloride 100.0 mmol/L (98-107) 08/06/21 20:46 Carbon Dioxide 25 mmol/L (22-30) 08/06/21 20:46 Anion Gap 18 mmol/L 08/06/21 20:46 BUN 42 mg/dL (9-20) H 08/06/21 20:46 Creatinine 1.7 mg/dL (0.8-1.3) H 08/06/21 20:46 Estimated GFR 48 ml/min 08/06/21 20:46 BUN/Creatinine Ratio 25 % 08/06/21 20:46 Glucose 117 mg/dL (75-100) H 08/06/21 20:46 Calcium 9.0 mg/dL (8.4-10.2) 08/06/21 20:46 Magnesium 1.80 mg/dL (1.7-2.3) 08/06/21 20:46 Total Bilirubin 0.50 mg/dL (0.1-1.2) 08/06/21 20:46 Direct Bilirubin 0.2 mg/dL (0-0.2) 08/06/21 20:46 Indirect Bilirubin 0.3 mg/dL 08/06/21 20:46 AST 33 units/L (5-40) 08/06/21 20:46 ALT 51 units/L (7-56) 08/06/21 20:46 Alkaline Phosphatase 53 units/L (35-129) 08/06/21 20:46 Troponin T < 0.010 ng/mL (0.00-0.029) 08/06/21 20:46 NT-Pro-B Natriuret Pep 4020 pg/mL (0-900) H 08/06/21 20:46 Total Protein 6.3 g/dL (6.3-8.2) 08/06/21 20:46 Albumin 3.6 g/dL (3.9-5) L 08/06/21 20:46 Albumin/Globulin Ratio 1.3 % 08/06/21 20:46 Urine Color Yellow (Yellow) 08/06/21 21:09 Urine Turbidity Clear (Clear) 08/06/21 21:09 Urine pH 6.0 (5.0-7.0) 08/06/21 21:09 Ur Specific [place] 1.009 (1.003-1.030) 08/06/21 21:09 Urine Protein 100 mg/dl mg/dL (Negative) 08/06/21 21:09 Urine Glucose (UA) Neg mg/dL (Negative) 08/06/21 21:09 Urine Ketones Neg mg/dL (Negative) 08/06/21 21:09 Urine Blood Neg (Negative) 08/06/21 21:09 Urine Nitrite Neg (Negative) 08/06/21 21:09 Urine Bilirubin Neg (Negative) 08/06/21 21:09 Urine Urobilinogen < 2.0 mg/dL (<2.0) 08/06/21 21:09 Ur Leukocyte Esterase Neg (Negative) 08/06/21 21:09 Urine WBC (Auto) 1.0 /HPF (0.0-6.0) 08/06/21 21:09 Urine RBC (Auto) < 1.0 /HPF (0.0-6.0) 08/06/21 21:09 - Imaging and Cardiology Chest x-ray: report reviewed Assessment and Plan VTE prophylaxis?: Chemical Plan of care discussed with patient/family: Yes - Patient Problems (1) CHF (congestive heart failure) Current Visit: Yes Status: Acute Plan to address problem: Admit the patient to the medical telemetry. Cardiac diet. Fluid restriction. Maintain input output. Daily weight. Lasix 40 mg IV every 12 hours. Echocardiogram. Cardiology evaluation (2) Hyperlipidemia Current Visit: Yes Status: Acute Plan to address problem: Lipitor 20 mg p.o. daily. Which recheck the lipid panel. Cardiology evaluation (3) Hypertension Current Visit: No Status: Acute Plan to address problem: Adrenal 100 mg p.o. daily. Valsartan/hydrochlorothiazide 1 tablet p.o. daily. We will monitor the blood pressure closely (4) DVT prophylaxis Current Visit: Yes Status: Acute Plan to address problem: Heparin 5000 units subcu every 8 hours for DVT prophylaxis. Pepcid 20 mg p.o. twice daily for GI prophylaxis. Patient is a full code
[2021-08-07] MEDS ORDERED: HEPARIN 5,000 UNIT/1 ML VIAL SUB-Q SCH (06:00)
[2021-08-07] MEDS: FUROSEMIDE 40 MG/4 ML INJ IV SCH ×2 (07:15→18:20)
[2021-08-07] MEDS: IPRATROPIUM/ALBUTEROL SULFATE 3 ML AMPUL.NEB IH SCH ×2 (08:40→14:56)
--- NOTE | 2021-08-07 09:19 | Electrocardiograph Report ---
[facility] Test Date: 2021-08-06 Test Time: 21:55:17 Pat Name: DOUG TAVAREZ Department: Room: [place] [address] Gender: M Model Technician: ALENA : 1950 Requested By: MARY FAIRCHILD Order Number: [id number] Reading MD: Darryl Canales Measurements Intervals [place] Rate: 161 P: 81 HI: 146 QRS: -10 QRSD: 93 T: 148 QT: 306 QTc: 502 Interpretive Statements afib with rvr Probable LVH with secondary repol abnrm No previous ECG available for comparison Electronically Signed On 08-07-2021 9:18:46 EDT by Darryl Canales
[2021-08-07] MEDS ORDERED: dilTIAZem 25 MG/5 ML INJ IV ONE (09:40)
[2021-08-07] MEDS: FAMOTIDINE 20 MG TAB PO SCH ×2 (09:49→22:16)
[2021-08-07] MEDS ORDERED: VALSARTAN PO SCH (10:00)
[2021-08-07] MEDS ORDERED: dilTIAZem/D5W 100 MG/100 ML BAG IV SCH (10:00)
[2021-08-07] MEDS ORDERED: HYDROCHLOROTHIAZIDE PO SCH (10:00)
[2021-08-07] MEDS ORDERED: VALSARTAN 160MG TAB PO SCH (10:00)
[2021-08-07] MEDS ORDERED: hydroCHLOROthiazide 25 MG TAB PO SCH (10:00)
[2021-08-07] MEDS ORDERED: NON-FORMULARY EACH (Atenolol [Tenormin] 100 MG Tablet) PO SCH (10:00)
[2021-08-07] MEDS ORDERED: atenoloL 50 MG TAB PO SCH (10:00)
[2021-08-07] MEDS ORDERED: METOPROLOL TARTRATE 100 MG TAB PO SCH (10:00)
[2021-08-07] MEDS: APIXABAN 5 MG TAB PO SCH ×2 (10:19→22:16)
[2021-08-07 10:54] LABS: Hematocrit 38.8 % (35.5-45.6); Hemoglobin 12.6 gm/dl (11.8-15.2); Mean Corpuscular HGB Conc 33 % (32-34); Mean Corpuscular Volume 94 fl (84-94); Platelet Count 158 K/mm3 (140-440); Red Blood Count 4.14 M/mm3 (3.65-5.03); Red Cell Distribution Width 13.5 % (13.2-15.2)
[2021-08-07 11:35] LABS: INR 1.07 (0.87-1.13)
[2021-08-07 11:36] LABS: Partial Thromboplastin Time 28.9 Sec. (24.2-36.6)
[2021-08-07] MEDS ORDERED: DIGOXIN 0.5 MG/2 ML INJ IV SCH (13:00)
[2021-08-07] MEDS: AMIODARONE 900 MG in DEXTROSE 5% IN WATER 482 ML IV SCH (13:39)
[2021-08-07] MEDS ORDERED: AMIODARONE 150 MG in DEXTROSE 5% IN WATER 97 ML IV ONE (13:44)
--- NOTE | 2021-08-07 14:39 | Event Note ---
Date: 08/07/21 The patient was evaluated this morning and found to be in A. fib with RVR. Cardiology was consulted and attempted to reduce his heart rate with beta- blockade; however, there was minimal improvement. The patient has since been initiated on IV amiodarone (bolus and maintenance) and was transferred to the ICU for closer management.
--- NOTE | 2021-08-07 15:34 | Consultation ---
History of Present Illness Consult date: 08/07/21 Requesting physician: MARY FAIRCHILD Consult reason: congestive heart failure History of present illness: Patient is 70-year-old male with a past medical history of HFrEF, hypertension, pulmonary embolisms(anticoagulated on Eliquis) who presented to the ED with a complaint of shortness of breath x1 month. Patient is followed by Dr. Canales of our group. During a follow-up visit yesterday patient was found to be in A. fib with RVR and have acute on chronic HFrEF. Patient was then sent to ED from the office. Patient reports dyspnea, orthopnea, weight gain of over 20 pounds, fatigue, and a rapid heart rate. Patient denies chest pain, nausea, vomiting, or paroxysmal nocturnal dyspnea. Cardiology is consulted for CHF Past History Past Medical History: heart failure, hypertension, hyperlipidemia Past Surgical History: No surgical history Social history: no significant social history Family history: no significant family history Medications and Allergies Allergies Allergy/AdvReac Type Severity Reaction Status Date / Time No Known Allergies Allergy Unverified 01/16/17 18:42 Home Medications Medication Instructions Recorded Confirmed Last Taken Type Atenolol [Tenormin] 100 mg PO DAILY 01/16/17 01/16/17 Unknown History Furosemide [Lasix TAB] 40 mg PO QDAY 01/16/17 01/16/17 Unknown History Sildenafil Citrate [Viagra] 100 mg PO QDAY PRN 01/16/17 01/16/17 Unknown History Valsartan/Hydrochlorothiazide 1 mg PO DAILY 01/16/17 01/16/17 Unknown History [Diovan Hct 320-25 mg] Active Meds: Active Medications Acetaminophen (Acetaminophen 325 Mg Tab) 650 mg PO Q4H PRN PRN Reason: Pain MILD(1-3)/Fever >100.5/RAMIREZ Albuterol (Albuterol 2.5 Mg/3 Ml Nebu) 2.5 mg IH Q4HRT PRN PRN Reason: Shortness Of Breath Albuterol/Ipratropium (Ipratropium/Albuterol Sulfate 3 Ml Ampul.Neb) 1 ampul IH Q6HRT [facility] Last Admin: 08/07/21 14:56 Dose: Not Given Documented by: Apixaban (Apixaban 5 Mg Tab) 5 mg PO Q12HR [facility]; Protocol Last Admin: 08/07/21 10:19 Dose: 5 mg Documented by: Famotidine (Famotidine 20 Mg Tab) 20 mg PO BID [facility] Last Admin: 08/07/21 09:49 Dose: 20 mg Documented by: Furosemide (Furosemide 40 Mg/4 Ml Inj) 40 mg IV BID@0600,1800 [facility] Last Admin: 08/07/21 07:15 Dose: 40 mg Documented by: Hydromorphone HCl (Hydromorphone 1 Mg/1 Ml Inj) 0.5 mg IV Q3H PRN PRN Reason: Pain , Severe (7-10) Amiodarone HCl 900 mg/ (Dextrose) 500 mls @ 33.333 mls/hr IV DIRECT [facility]; Protocol Last Admin: 08/07/21 13:39 Dose: 1 mg/min, 33.333 mls/hr Documented by: Metoprolol Tartrate (Metoprolol Tartrate 100 Mg Tab) 100 mg PO TID [facility] Nitroglycerin (Nitroglycerin 0.4 Mg Tab Subl) 0.4 mg SL .Q5MIN PRN PRN Reason: Chest Pain Ondansetron HCl (Ondansetron 4 Mg/2 Ml Inj) 4 mg IV Q8H PRN PRN Reason: Nausea And Vomiting Oxycodone/Acetaminophen (Oxycodone /Acetaminophen 5-325mg Tab) 1 tab PO Q6H PRN PRN Reason: Pain, Moderate (4-6) Sodium Chloride (Sodium Chloride 0.9% 10 Ml Flush Syringe) 10 ml IV BID [facility] Last Admin: 08/07/21 09:49 Dose: 10 ml Documented by: Sodium Chloride (Sodium Chloride 0.9% 10 Ml Flush Syringe) 10 ml IV PRN PRN PRN Reason: LINE FLUSH Review of Systems Constitutional: weight gain, no fever, no chills, no sweats Ears, nose, mouth and throat: no nasal congestion, no nasal discharge, no sinus pressure, no sinus pain Cardiovascular: orthopnea, rapid/irregular heart beat, edema, shortness of breath, dyspnea on exertion, no chest pain Respiratory: shortness of breath, dyspnea on exertion, no cough, no cough with sputum Gastrointestinal: no abdominal pain, no nausea, no vomiting Musculoskeletal: no neck stiffness, no neck pain, no shooting arm pain Integumentary: no rash, no pruritis, no redness Neurological: no head injury, no transient paralysis, no paralysis Psychiatric: no anxiety, no memory loss Endocrine: no cold intolerance, no heat intolerance Hematologic/Lymphatic: no easy bruising, no easy bleeding Physical Examination Vital Signs Temp Pulse Resp BP Pulse Ox 97.3 F L 76 20 104/76 94 08/06/21 19:04 08/06/21 19:04 08/06/21 19:04 08/06/21 19:04 08/06/21 19:04 General appearance: no acute distress HEENT: Positive: PERRL Neck: Positive: trachea midline Cardiac: Positive: irregularly irregular Lungs: Positive: Decreased Breath Sounds Neuro: Positive: Grossly Intact Abdomen: Positive: Soft, Active Bowel Sounds Skin: Negative: Rash, Suspicious Lesions, Ulceration Extremities: Present: upper extr. pulses, lower extr. pulses, +2 Edema Results 08/07/21 10:13 08/07/21 10:13 Cardiac Enzymes 08/06/21 Range/Units 20:46 AST 33 (5-40) units/L Coagulation 08/06/21 08/07/21 Range/Units 20:46 10:13 PT 15.2 H 15.1 H (12.2-14.9) Sec. INR 1.08 1.07 (0.87-1.13) APTT 27.9 28.9 (24.2-36.6) Sec. CBC 08/06/21 08/07/21 Range/Units 20:46 10:13 WBC 4.9 4.4 L (4.5-11.0) K/mm3 RBC 4.07 4.14 (3.65-5.03) M/mm3 Hgb 12.7 12.6 (11.8-15.2) gm/dl Hct 38.9 38.8 (35.5-45.6) % Plt Count 158 158 (140-440) K/mm3 Lymph # (Auto) 1.3 (1.2-5.4) K/mm3 [place] # (Auto) 0.8 (0.0-0.8) K/mm3 Eos # (Auto) 0.1 (0.0-0.4) K/mm3 Baso # (Auto) 0.0 (0.0-0.1) K/mm3 Comprehensive Metabolic Panel 10/21/21 10/22/21 Range/Units 20:46 10:13 Sodium 140 (137-145) mmol/L Potassium 3.3 L (3.6-5.0) mmol/L Chloride 100.0 (98-107) mmol/L Carbon Dioxide 25 (22-30) mmol/L BUN 42 H (9-20) mg/dL Creatinine 1.7 H 1.5 H (0.8-1.3) mg/dL Glucose 117 H (75-100) mg/dL Calcium 9.0 (8.4-10.2) mg/dL Direct Bilirubin 0.2 (0-0.2) mg/dL Indirect Bilirubin 0.3 mg/dL AST 33 (5-40) units/L ALT 51 (7-56) units/L Alkaline Phosphatase 53 (35-129) units/L Total Protein 6.3 (6.3-8.2) g/dL Albumin 3.6 L (3.9-5) g/dL - Imaging and Cardiology Echo: report reviewed EKG: report reviewed EKG interpretations - Telemetry EKG Rhythm: Atrial Fibrillation - EKG Supraventricular dysrhythmia: atrial fibrillation Assessment and Plan EKG -shows A. fib with RVR 161 no acute ischemic changes Echo 08/07/2021-EF 25 to 30%, LV systolic function moderately to severely decreased, right ventricle is moderate to severely dilated, right ventricle mildly hypokinetic right atrium is moderately dilated, left atrium is severely dilated. Mild aortic regurgitation, mild mitral regurgitation. Mild tricuspid regurgitation moderate pulmonary hypertension. Ascending aorta is dilated 3.9 cm Nuclear medicine cardiovascular study: 01/29/2021: Pharmacologic stress nuclear study is normal. Stress and rest SPECT images demonstrate homogeneous tracer distribution throughout the myocardium. Gated SPECTimaging reveals normal myocardial thickening and wall motion. The left ventricular ejection fraction was normal Echocardiogram 01/29/2021 -There is normal LV systolic function.LV wall thickness is mildly increased. The estimated left ventricle ejection fraction is 55-60%. Normal left atrial pressure and diastolic function. There is normal right ventricular size, wall dimension, and systolic function. There is mild aortic valve sclerosis without significant stenosis. There is mild aortic regurgitation. There is no mitral regurgitation. There is mild tricuspid regurgitation. The estimated RV systolic pressure is 32.99 mmHg. There is trivial pulmonic regurgitation. The ascending aorta is mildly dilated. Ascending Aortic Diameter: 4 cm. Plan: Initiate amiodarone drip for rate control Will hold amlodipine due to soft blood pressures Initiate metoprolol 100 mg p.o. 3 times daily. Resume Eliquis for anticoagulation We will hold losartan due to BENJAMIN Patient seen in conjunction with Dr. Canales who agrees with this plan of care. We will continue to follow - Patient Problems (1) Acute HFrEF (heart failure with reduced ejection fraction) Current Visit: Yes Status: Acute (2) Atrial fibrillation with RVR Current Visit: Yes Status: Acute (3) BENJAMIN (acute kidney injury) Current Visit: Yes Status: Acute (4) Cardiomyopathy Current Visit: Yes Status: Acute (5) Hyperlipidemia Current Visit: Yes Status: Acute (6) Hypertension Current Visit: No Status: Acute
[2021-08-07] MEDS: METOPROLOL TARTRATE 100 MG TAB PO SCH (22:15)
[2021-08-07] MEDS: HYDROmorphone 1 MG/1 ML INJ IV PRN (23:49)
[2021-08-08] MEDS: IPRATROPIUM/ALBUTEROL SULFATE 3 ML AMPUL.NEB IH SCH ×5 (01:23→19:09)
[2021-08-08 04:59] LABS: Hematocrit 35.9 % (35.5-45.6); Hemoglobin 11.8 gm/dl (11.8-15.2); Mean Corpuscular HGB Conc 33 % (32-34); Mean Corpuscular Volume 95 fl (84-94); Platelet Count 143 K/mm3 (140-440); Red Blood Count 3.79 M/mm3 (3.65-5.03); Red Cell Distribution Width 13.7 % (13.2-15.2)
[2021-08-08 05:45] LABS: Calcium 8.9 mg/dL (8.4-10.2)
[2021-08-08] MEDS: FUROSEMIDE 40 MG/4 ML INJ IV SCH ×2 (06:00→17:21)
[2021-08-08 07:57] LABS: Total Cells Counted 100
[2021-08-08 07:58] LABS: Anisocytosis 1+
[2021-08-08] MEDS: FAMOTIDINE 20 MG TAB PO SCH ×2 (09:17→21:12)
[2021-08-08] MEDS: METOPROLOL TARTRATE 100 MG TAB PO SCH ×3 (09:17→21:13)
[2021-08-08] MEDS: APIXABAN 5 MG TAB PO SCH ×2 (09:17→21:12)
[2021-08-08] MEDS ORDERED: POTASSIUM CHLORIDE ER 20 MEQ TAB PO SCH (10:00)
[2021-08-08] MEDS ORDERED: MAGNESIUM SULFATE 1 GM in SODIUM CHLORIDE 0.9% 50 ML IV SCH (10:30)
[2021-08-08] MEDS: AMIODARONE 900 MG in DEXTROSE 5% IN WATER 482 ML IV SCH (10:35)
--- NOTE | 2021-08-08 10:43 | Consultation ---
History of Present Illness - Reason for Consult Consult date: 08/08/21 afib with rvr Requesting physician: MARU MEJIA - History of Present Illness 70 y/o male transferred from the floor with afib with RVR after being admitted the night before with CHF exacerbation. Past History Past Medical History: heart failure, hypertension, hyperlipidemia Past Surgical History: No surgical history Social history: no significant social history Family history: no significant family history Medications and Allergies Allergies Allergy/AdvReac Type Severity Reaction Status Date / Time No Known Allergies Allergy Unverified 01/16/17 18:42 Home Medications Medication Instructions Recorded Confirmed Last Taken Type Atenolol [Tenormin] 100 mg PO DAILY 01/16/17 08/08/21 1 Day Ago History ~08/07/21 Furosemide [Lasix TAB] 40 mg PO QDAY 01/16/17 08/08/21 1 Day Ago History ~08/07/21 Sildenafil Citrate [Viagra] 100 mg PO QDAY PRN 01/16/17 08/08/21 1 Day Ago H istory ~08/07/21 Valsartan/Hydrochlorothiazide 1 mg PO DAILY 01/16/17 08/08/21 1 Day Ago History [Diovan Hct 320-25 mg] ~08/07/21 Active Meds: Active Medications Acetaminophen (Acetaminophen 325 Mg Tab) 650 mg PO Q4H PRN PRN Reason: Pain MILD(1-3)/Fever >100.5/RAMIREZ Albuterol (Albuterol 2.5 Mg/3 Ml Nebu) 2.5 mg IH Q4HRT PRN PRN Reason: Shortness Of Breath Albuterol/Ipratropium (Ipratropium/Albuterol Sulfate 3 Ml Ampul.Neb) 1 ampul IH Q6HRT [facility] Last Admin: 08/08/21 04:20 Dose: Not Given Documented by: Apixaban (Apixaban 5 Mg Tab) 5 mg PO Q12HR [facility]; Protocol Last Admin: 08/08/21 09:17 Dose: 5 mg Documented by: Famotidine (Famotidine 20 Mg Tab) 20 mg PO BID [facility] Last Admin: 08/08/21 09:17 Dose: 20 mg Documented by: Furosemide (Furosemide 40 Mg/4 Ml Inj) 40 mg IV BID@0600,1800 [facility] Last Admin: 08/08/21 06:00 Dose: 40 mg Documented by: Hydromorphone HCl (Hydromorphone 1 Mg/1 Ml Inj) 0.5 mg IV Q3H PRN PRN Reason: Pain , Severe (7-10) Last Admin: 08/07/21 23:49 Dose: 0.5 mg Documented by: Amiodarone HCl 900 mg/ (Dextrose) 500 mls @ 33.333 mls/hr IV DIRECT [facility]; Protocol Last Titration: 08/07/21 19:40 Dose: 0.5 mg/min, 16.667 mls/hr Documented by: Magnesium Sulfate 1 gm/ Sodium (Chloride) 52 mls @ 52 mls/hr IV ONCE@1030 [facility] Stop: 08/08/21 14:30 Metoprolol Tartrate (Metoprolol Tartrate 100 Mg Tab) 100 mg PO TID [facility] Last Admin: 08/08/21 09:17 Dose: 100 mg Documented by: Nitroglycerin (Nitroglycerin 0.4 Mg Tab Subl) 0.4 mg SL .Q5MIN PRN PRN Reason: Chest Pain Ondansetron HCl (Ondansetron 4 Mg/2 Ml Inj) 4 mg IV Q8H PRN PRN Reason: Nausea And Vomiting Oxycodone/Acetaminophen (Oxycodone /Acetaminophen 5-325mg Tab) 1 tab PO Q6H PRN PRN Reason: Pain, Moderate (4-6) Potassium Chloride (Potassium Chloride Er 20 Meq Tab) 40 meq PO BID [facility] Stop: 08/08/21 13:00 Sodium Chloride (Sodium Chloride 0.9% 10 Ml Flush Syringe) 10 ml IV BID [facility] Last Admin: 08/08/21 09:18 Dose: 10 ml Documented by: Sodium Chloride (Sodium Chloride 0.9% 10 Ml Flush Syringe) 10 ml IV PRN PRN PRN Reason: LINE FLUSH Exam - Constitutional Vitals: Temp Pulse Resp BP Pulse Ox 98.2 F 81 18 116/87 98 08/08/21 03:31 08/08/21 01:01 08/08/21 04:00 08/08/21 01:01 08/08/21 04:00 General appearance: Present: no acute distress, well-nourished, obese - EENT Eyes: Present: PERRL, EOM intact ENT: hearing intact, clear oral mucosa, dentition normal - Neck Neck: Present: supple, normal ROM - Respiratory Respiratory effort: normal Respiratory: negative: rales - Cardiovascular Rhythm: irregularly irregular - Extremities Extremity abnormal: edema, erythema - Abdominal General gastrointestinal: Present: soft, non-tender, normal bowel sounds Male genitourinary: Present: deferred - Rectal Rectal Exam: deferred Results - Labs CBC & Chem 7: 08/08/21 04:20 08/08/21 04:20 Labs: Abnormal lab results 08/07/21 08/07/21 08/07/21 Range/Units 10:13 10:13 10:13 WBC 4.4 L (4.5-11.0) K/mm3 MCV (84-94) fl Monocytes % (Manual) (0.0-7.3) % Lymphocytes # (Manual) (1.2-5.4) K/mm3 PT 15.1 H (12.2-14.9) Sec. Potassium (3.6-5.0) mmol/L BUN (9-20) mg/dL Creatinine 1.5 H (0.8-1.3) mg/dL Glucose (75-100) mg/dL Magnesium (1.7-2.3) mg/dL 08/08/21 08/08/21 Range/Units 04:20 04:20 WBC 4.1 L (4.5-11.0) K/mm3 MCV 95 H (84-94) fl Monocytes % (Manual) 15.0 H (0.0-7.3) % Lymphocytes # (Manual) 0.6 L (1.2-5.4) K/mm3 PT (12.2-14.9) Sec. Potassium 3.0 L (3.6-5.0) mmol/L BUN 46 H (9-20) mg/dL Creatinine 1.8 H (0.8-1.3) mg/dL Glucose 116 H (75-100) mg/dL Magnesium 1.60 L (1.7-2.3) mg/dL Assessment and Plan 70 y/o male with known CHF, now with afib with rvr 1. Rate control per cards 2. Volume removal as BP and renal function will tolerate 3. Will stop scheduled duonebs 4. pulm htn directly related to left sided heart disease, no indication for COPD therapy.
--- NOTE | 2021-08-08 15:23 | Progress Note ---
Assessment and Plan Echo 08/07/2021: EF 25 to 30%, LV systolic function moderately to severely decreased, right ventricle is moderate to severely dilated, right ventricle mildly hypokinetic right atrium is moderately dilated, left atrium is severely dilated. Mild aortic regurgitation, mild mitral regurgitation. Mild tricuspid regurgitation moderate pulmonary hypertension. Ascending aorta is dilated 3.9 cm Nuclear medicine cardiovascular study: 01/29/2021: Pharmacologic stress nuclear study is normal. Stress and rest SPECT images demonstrate homogeneous tracer distribution throughout the myocardium. Gated SPECTimaging reveals normal myocardial thickening and wall motion. The left ventricular ejection fraction was normal Echocardiogram 01/29/2021 -There is normal LV systolic function.LV wall thickness is mildly increased. The estimated left ventricle ejection fraction is 55-60%. Normal left atrial pressure and diastolic function. There is normal right ventricular size, wall dimension, and systolic function. There is mild aortic valve sclerosis without significant stenosis. There is mild aortic regurgitation. There is no mitral regurgitation. There is mild tricuspid regurgitation. The estimated RV systolic pressure is 32.99 mmHg. There is trivial pulmonic regurgitation. The ascending aorta is mildly dilated. Ascending Aortic Diameter: 4 cm. A. fib RVR Hypokalemia New cardiomyopathy (? Tachycardia induced) Acute HFrEF 25-30% BENJAMIN Hypertension Hyperlipidemia H/O pulmonary embolisms (anticoagulated on Eliquis) Continue amiodarone drip and metoprolol 100 mg TID Continue oral anticoagulation Holding losartan secondary to BENJAMIN Strict I's and O's Monitor potassium and creatinine Subjective Date of service: 08/08/21 Principal diagnosis: Acute HFrEF Interval history: Patient sitting up in bed and states that he feels much better. He denies any chest pain or shortness of breath. He does admit to having a decrease in his urine output. Objective Vital Signs Temp Pulse Resp Resp BP BP Pulse Ox 08/08/21 13:40 97 H 127/79 08/08/21 12:00 17 97 08/08/21 08:00 17 97 08/08/21 04:00 18 98 08/08/21 03:31 98.2 F 08/08/21 03:29 20 08/08/21 01:53 97.9 F 08/08/21 01:35 18 98 08/08/21 01:01 81 18 116/87 99 08/08/21 00:45 126 H 18 118/87 98 08/08/21 00:31 104 H 19 117/87 99 08/08/21 00:15 122 H 18 126/89 99 08/08/21 00:01 100 H 17 116/82 97 08/07/21 23:45 110 H 17 130/88 97 08/07/21 23:31 135 H 17 119/84 98 08/07/21 23:15 95 H 19 112/74 99 08/07/21 23:13 116 H 20 112/74 96 08/07/21 23:11 114 H 19 112/74 98 08/07/21 23:01 134 H 20 114/84 98 08/07/21 22:45 118 H 21 122/92 100 08/07/21 22:31 117 H 20 116/92 97 08/07/21 22:15 123 H 22 114/90 97 08/07/21 22:01 110 H 18 116/82 97 08/07/21 21:45 99 H 19 112/91 98 08/07/21 21:31 135 H 22 109/89 98 08/07/21 21:15 78 19 120/90 98 08/07/21 21:01 95 H 17 120/90 100 08/07/21 20:45 78 19 124/88 99 08/07/21 20:31 112 H 19 103/69 99 08/07/21 20:15 94 H 13 103/69 95 08/07/21 20:01 74 21 116/78 98 08/07/21 19:45 90 22 98/70 98 08/07/21 19:31 76 22 103/69 93 08/07/21 19:15 65 19 98/70 97 08/07/21 19:01 78 19 107/80 97 08/07/21 18:45 81 14 108/81 96 08/07/21 18:31 46 L 14 112/69 95 08/07/21 18:24 71 20 112/69 98 08/07/21 18:15 90 14 90/57 08/07/21 18:01 63 18 94/65 98 08/07/21 17:31 57 L 13 91/69 98 08/07/21 17:01 60 17 91/69 97 08/07/21 16:31 48 L 18 103/66 98 08/07/21 16:01 59 L 19 113/76 98 08/07/21 15:31 86 17 103/66 95 - Physical Examination HEENT: Positive: PERRL Neck: Positive: trachea midline Cardiac: Positive: irregularly irregular, Tachycardia Lungs: Positive: Decreased Breath Sounds Neuro: Positive: Grossly Intact Abdomen: Positive: Soft, Active Bowel Sounds Skin: Negative: Rash, Suspicious Lesions, Ulceration Extremities: Present: upper extr. pulses, lower extr. pulses, +2 Edema - Labs and Meds CBC 08/08/21 Range/Units 04:20 WBC 4.1 L (4.5-11.0) K/mm3 RBC 3.79 (3.65-5.03) M/mm3 Hgb 11.8 (11.8-15.2) gm/dl Hct 35.9 (35.5-45.6) % Plt Count 143 (140-440) K/mm3 Comprehensive Metabolic Panel 08/08/21 Range/Units 04:20 Sodium 141 (137-145) mmol/L Potassium 3.0 L (3.6-5.0) mmol/L Chloride 99.9 (98-107) mmol/L Carbon Dioxide 28 (22-30) mmol/L BUN 46 H (9-20) mg/dL Creatinine 1.8 H (0.8-1.3) mg/dL Glucose 116 H (75-100) mg/dL Calcium 8.9 (8.4-10.2) mg/dL - Imaging and Cardiology EKG: report reviewed Echo: report reviewed
--- NOTE | 2021-08-08 16:07 | Progress Note ---
Assessment and Plan Assessment and plan: This is a 70-year-old male with HTN, HLD, CHF admitted with A. fib with RVR Neuro: NAD -maintain wake and sleep -Avoid delirium -Reorientation as needed -Maintain sleep-wake cycle Cardio: A. fib with RVR, cardiomyopathy, acute on chronic heart failure with reduced EF,h/o HTN and HLD -Cardiology consulted, patient recommendations -S/p beta-blockers -IV amiodarone and metoprolol 100 mg 3 times daily -Per cardiology: -Echocardiogram 08/07/2021 shows EF of 25 to 30%, moderate to severely dilated right ventricle, mildly hypokinetic right ventricle, severely dilated left atrium and right ventricle. Ascending aorta is dilated at 3.9 cm -Nuclear medicine cardiovascular study 01/29/2021 was normal -Echocardiogram 01/29/2021 showed a EF of 55 to 60%, normal left arterial diastolic function, normal right ventricular size -Blood pressure monitoring per protocol -Hold LENA inhibitors/ARB in setting of BENJAMIN Pulmonary: h/o pulmonary embolism -Per patient from embolism was approximately 1 year ago -Patient is on Eliquis -Supplemental oxygen as needed -SPO2 monitoring -Pulmonary hygiene -CCM/pulmonary consulted, appreciate recommendations GI: MO -Cardiac diet -Lifestyle/dietary modification encouraged -BR: Colace -PPI -24-hour -239 :Acute kidney injury, hyperkalemia, hypomagnesemia -Presented with a BUN/creatinine of 42/1.7 -Trend BMP -Avoid nephrotic medications -Renally dose medications -Consider nephrology consult if worsens -Urine lites pending -Replete potassium and magnesium -Repeat a.m. labs Heme: Leukopenia, h/o PE -Trend BMP -Transfuse for hemoglobin less than 7 -Patient is anticoagulated on Eliquis -Watch for bleeding ID: NAD -Monitor fever and BC curve -Monitor for signs symptoms of infection Endo: NAD -Avoid hypoglycemia -Hypoglycemia protocol The high probability of a clinically significant, sudden or life threatening deterioration of the [cardio] system(s) required my full and direct attention, intervention and personal management. The aggregate critical care time was [60] minutes. 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 Work-up in the emergency department revealed a troponin of 0.010 and proBNP of 420, CXR showed cardiomegaly and mild interstitial edema. Patient was admitted to the hospital service with CHF exacerbation with a cardiology consult. 08/07: Upon evaluation patient was found to be in A. fib with RVR and cardiology attempted to reduce heart rate with beta-blockers however there was minimal improvement and the patient was initiated on IV amiodarone with bolus and maintenance. Patient was transferred to the ICU with consults to [facility] for course of management. 08/08: Patient remains in atrial fibrillation with RVR and cardiology wishes to continue amiodarone drip and metoprolol 1 mg 3 times daily. This morning patient was noted to be hypokalemic and hypomagnesemic which were both repleted. At rest patient's heart rates is in the 70s to 80s however with exertion does rise up to 160s. Hospitalist Physical - Constitutional Vitals: Temp Pulse Resp BP Pulse Ox 98.2 F 97 H 20 127/79 97 08/08/21 03:31 08/08/21 13:40 08/08/21 15:00 08/08/21 13:40 08/08/21 12:00 General appearance: Present: no acute distress, well-nourished, obese - EENT Eyes: Present: PERRL, EOM intact ENT: hearing intact, clear oral mucosa, dentition normal - Neck Neck: Present: supple, normal ROM - Respiratory Respiratory effort: normal Respiratory: bilateral: diminished - Cardiovascular Rhythm: irregularly irregular Heart Sounds: Present: S1 & S2. Absent: systolic murmur, diastolic murmur - Extremities Extremities: no ischemia, pulses intact, pulses symmetrical, normal temperature, normal color Extremity abnormal: edema - Peripheral Assessment Bilateral Lower Extremity Edema Type: Pitting Edema Degree: 2+ Capillary Refill: < 3 seconds Skin Temperature: Warm Bilateral Upper Extremity Edema Type: Non-pitting Capillary Refill: < 3 seconds Skin Temperature: Warm Peripheral Pulses: within normal limits - Abdominal General gastrointestinal: soft, non-tender, non-distended, normal bowel sounds - Integumentary Integumentary: Present: clear, warm, dry - Psychiatric Psychiatric: cooperative - Neurologic Neurologic: CNII-XII intact, no focal deficits, moves all extremities - Allied Health Allied health notes reviewed: nursing, RT, social work HEART Score - HEART Score Troponin: Troponin T < 0.010 ng/mL (0.00-0.029) 08/06/21 20:46 Results - Labs CBC & Chem 7: 08/08/21 04:20 08/08/21 04:20 Labs: Laboratory Last Values WBC 4.1 K/mm3 (4.5-11.0) L 08/08/21 04:20 RBC 3.79 M/mm3 (3.65-5.03) 08/08/21 04:20 Hgb 11.8 gm/dl (11.8-15.2) 08/08/21 04:20 Hct 35.9 % (35.5-45.6) 08/08/21 04:20 MCV 95 fl (84-94) H 08/08/21 04:20 MCH 31 pg (28-32) 08/08/21 04:20 MCHC 33 % (32-34) 08/08/21 04:20 RDW 13.7 % (13.2-15.2) 08/08/21 04:20 Plt Count 143 K/mm3 (140-440) 08/08/21 04:20 Lymph % (Auto) 27.0 % (13.4-35.0) 08/06/21 20:46 Burt % (Auto) Director Of Provider Relations 08/08/21 04:20 Eos % (Auto) 1.8 % (0.0-4.3) 08/06/21 20:46 Baso % (Auto) 0.6 % (0.0-1.8) 08/06/21 20:46 Lymph # (Auto) 1.3 K/mm3 (1.2-5.4) 08/06/21 20:46 Burt # (Auto) 0.8 K/mm3 (0.0-0.8) 08/06/21 20:46 Eos # (Auto) 0.1 K/mm3 (0.0-0.4) 08/06/21 20:46 Baso # (Auto) 0.0 K/mm3 (0.0-0.1) 08/06/21 20:46 Add Manual Diff Complete 08/08/21 04:20 Total Counted 100 08/08/21 04:20 Seg Neutrophils % 55.4 % (40.0-70.0) 08/06/21 20:46 Seg Neuts % (Manual) 67.0 % (40.0-70.0) 08/08/21 04:20 Band Neutrophils % 1.0 % 08/08/21 04:20 Lymphocytes % (Manual) 15.0 % (13.4-35.0) 08/08/21 04:20 Monocytes % (Manual) 15.0 % (0.0-7.3) H 08/08/21 04:20 Eosinophils % (Manual) 2.0 % (0.0-4.3) 08/08/21 04:20 Nucleated RBC % Not Reportable 08/08/21 04:20 Seg Neutrophils # 2.7 K/mm3 (1.8-7.7) 08/06/21 20:46 Seg Neutrophils # Man 2.7 K/mm3 (1.8-7.7) 08/08/21 04:20 Band Neutrophils # 0.0 K/mm3 08/08/21 04:20 Lymphocytes # (Manual) 0.6 K/mm3 (1.2-5.4) L 08/08/21 04:20 Abs React Lymphs (Man) 0.0 K/mm3 08/08/21 04:20 Monocytes # (Manual) 0.6 K/mm3 (0.0-0.8) 08/08/21 04:20 Eosinophils # (Manual) 0.1 K/mm3 (0.0-0.4) 08/08/21 04:20 Basophils # (Manual) 0.0 K/mm3 (0.0-0.1) 08/08/21 04:20 Metamyelocytes # 0.0 K/mm3 08/08/21 04:20 Myelocytes # 0.0 K/mm3 08/08/21 04:20 Promyelocytes # 0.0 K/mm3 08/08/21 04:20 Blast Cells # 0.0 K/mm3 08/08/21 04:20 WBC Morphology Not Reportable 08/08/21 04:20 Hypersegmented Neuts Not Reportable 08/08/21 04:20 Hyposegmented Neuts Not Reportable 08/08/21 04:20 Hypogranular Neuts Not Reportable 08/08/21 04:20 Smudge Cells Not Reportable 08/08/21 04:20 Toxic Granulation Not Reportable 08/08/21 04:20 Toxic Vacuolation Not Reportable 08/08/21 04:20 Dohle Bodies Not Reportable 08/08/21 04:20 Pelger-Huet Anomaly Not Reportable 08/08/21 04:20 Oj Rods Not Reportable 08/08/21 04:20 Platelet Estimate Not Reportable 08/08/21 04:20 Clumped Platelets Not Reportable 08/08/21 04:20 Plt Clumps, EDTA Not Reportable 08/08/21 04:20 Large Platelets Not Reportable 08/08/21 04:20 Giant Platelets Not Reportable 08/08/21 04:20 Platelet Satelliting Not Reportable 08/08/21 04:20 Plt Morphology Comment Not Reportable 08/08/21 04:20 RBC Morphology Not Reportable 08/08/21 04:20 Dimorphic RBCs Not Reportable 08/08/21 04:20 Polychromasia Not Reportable 08/08/21 04:20 Hypochromasia Not Reportable 08/08/21 04:20 Poikilocytosis Not Reportable 08/08/21 04:20 Anisocytosis 1+ 08/08/21 04:20 Microcytosis Not Reportable 08/08/21 04:20 Macrocytosis Not Reportable 08/08/21 04:20 Spherocytes Not Reportable 08/08/21 04:20 Pappenheimer Bodies Not Reportable 08/08/21 04:20 Sickle Cells Not Reportable 08/08/21 04:20 Target Cells Not Reportable 08/08/21 04:20 Tear Drop Cells Not Reportable 08/08/21 04:20 Ovalocytes Not Reportable 08/08/21 04:20 Helmet Cells Not Reportable 08/08/21 04:20 Hooper-Nankin Bodies Not Reportable 08/08/21 04:20 Baring Rings Not Reportable 08/08/21 04:20 Cyril Cells Not Reportable 08/08/21 04:20 Bite Cells Not Reportable 08/08/21 04:20 Crenated Cell Not Reportable 08/08/21 04:20 Elliptocytes Not Reportable 08/08/21 04:20 Acanthocytes (Spur) Not Reportable 08/08/21 04:20 Rouleaux Not Reportable 08/08/21 04:20 Hemoglobin C Crystals Not Reportable 08/08/21 04:20 Schistocytes Not Reportable 08/08/21 04:20 Malaria parasites Not Reportable 08/08/21 04:20 Cedric Bodies Not Reportable 08/08/21 04:20 Hem Pathologist Commnt No 08/08/21 04:20 PT 15.1 Sec. (12.2-14.9) H 08/07/21 10:13 INR 1.07 (0.87-1.13) 08/07/21 10:13 APTT 28.9 Sec. (24.2-36.6) 08/07/21 10:13 Sodium 141 mmol/L (137-145) 08/08/21 04:20 Potassium 3.0 mmol/L (3.6-5.0) L 08/08/21 04:20 Chloride 99.9 mmol/L (98-107) 08/08/21 04:20 Carbon Dioxide 28 mmol/L (22-30) 08/08/21 04:20 Anion Gap 16 mmol/L 08/08/21 04:20 BUN 46 mg/dL (9-20) H 08/08/21 04:20 Creatinine 1.8 mg/dL (0.8-1.3) H 08/08/21 04:20 Estimated GFR 43 ml/min 08/08/21 04:20 BUN/Creatinine Ratio 24 % 08/08/21 04:20 Glucose 116 mg/dL (75-100) H 08/08/21 04:20 Calcium 8.9 mg/dL (8.4-10.2) 08/08/21 04:20 Phosphorus 4.20 mg/dL (2.5-4.5) 08/08/21 04:20 Magnesium 1.60 mg/dL (1.7-2.3) L 08/08/21 04:20 Total Bilirubin 0.50 mg/dL (0.1-1.2) 08/06/21 20:46 Direct Bilirubin 0.2 mg/dL (0-0.2) 08/06/21 20:46 Indirect Bilirubin 0.3 mg/dL 08/06/21 20:46 AST 33 units/L (5-40) 08/06/21 20:46 ALT 51 units/L (7-56) 08/06/21 20:46 Alkaline Phosphatase 53 units/L (35-129) 08/06/21 20:46 Troponin T < 0.010 ng/mL (0.00-0.029) 08/06/21 20:46 NT-Pro-B Natriuret Pep 4020 pg/mL (0-900) H 08/06/21 20:46 Total Protein 6.3 g/dL (6.3-8.2) 08/06/21 20:46 Albumin 3.6 g/dL (3.9-5) L 08/06/21 20:46 Albumin/Globulin Ratio 1.3 % 08/06/21 20:46 Urine Color Yellow (Yellow) 08/06/21 21:09 Urine Turbidity Clear (Clear) 08/06/21 21:09 Urine pH 6.0 (5.0-7.0) 08/06/21 21:09 Ur Specific [place] 1.009 (1.003-1.030) 08/06/21 21:09 Urine Protein 100 mg/dl mg/dL (Negative) 08/06/21 21:09 Urine Glucose (UA) Neg mg/dL (Negative) 08/06/21 21:09 Urine Ketones Neg mg/dL (Negative) 08/06/21 21:09 Urine Blood Neg (Negative) 08/06/21 21:09 Urine Nitrite Neg (Negative) 08/06/21 21:09 Urine Bilirubin Neg (Negative) 08/06/21 21:09 Urine Urobilinogen < 2.0 mg/dL (<2.0) 08/06/21 21:09 Ur Leukocyte Esterase Neg (Negative) 08/06/21 21:09 Urine WBC (Auto) 1.0 /HPF (0.0-6.0) 08/06/21 21:09 Urine RBC (Auto) < 1.0 /HPF (0.0-6.0) 08/06/21 21:09 Hadley/IV: Voiding Method Urinal Active Medications - Current Medications Current Medications: Generic Name Dose Route Start Last Admin Trade Name Freq PRN Reason Stop Dose Admin Acetaminophen 650 mg 08/07/21 01:08 Acetaminophen 325 Mg Tab PO Q4H PRN Pain MILD(1-3)/Fever >100.5/RAMIREZ Albuterol 2.5 mg 08/07/21 01:08 Albuterol 2.5 Mg/3 Ml Nebu IH Q4HRT PRN Shortness Of Breath Albuterol/Ipratropium 1 ampul 08/07/21 02:00 08/08/21 13:07 Ipratropium/Albuterol Sulfate 3 Ml Ampul.Neb IH Not Given Q6HRT ALISON Apixaban 5 mg 08/07/21 10:00 08/08/21 09:17 Apixaban 5 Mg Tab PO 5 mg Q12HR ALISON Administration Protocol Famotidine 20 mg 08/07/21 10:00 08/08/21 09:17 Famotidine 20 Mg Tab PO 20 mg BID ALISON Administration Furosemide 40 mg 08/07/21 06:00 08/08/21 06:00 Furosemide 40 Mg/4 Ml Inj IV 40 mg BID@0600,1800 ALISON Administration Hydromorphone HCl 0.5 mg 08/07/21 01:08 08/07/21 23:49 Hydromorphone 1 Mg/1 Ml Inj IV 0.5 mg Q3H PRN Administration Pain , Severe (7-10) Amiodarone HCl 900 mg/ 500 mls @ 33.333 mls/hr 08/07/21 13:30 08/08/21 10:35 Dextrose IV 0.5 mg/min DIRECT ALISON 16.667 mls/hr Administration Protocol 1 MG/MIN Metoprolol Tartrate 100 mg 08/07/21 20:00 08/08/21 13:40 Metoprolol Tartrate 100 Mg Tab PO 100 mg TID ALISON Administration Nitroglycerin 0.4 mg 08/07/21 01:08 Nitroglycerin 0.4 Mg Tab Subl SL .Q5MIN PRN Chest Pain Ondansetron HCl 4 mg 08/07/21 01:08 Ondansetron 4 Mg/2 Ml Inj IV Q8H PRN Nausea And Vomiting Oxycodone/Acetaminophen 1 tab 08/07/21 01:08 Oxycodone /Acetaminophen 5-325mg Tab PO Q6H PRN Pain, Moderate (4-6) Sodium Chloride 10 ml 08/07/21 10:00 08/08/21 09:18 Sodium Chloride 0.9% 10 Ml Flush Syringe IV 10 ml BID ALISON Administration Sodium Chloride 10 ml 08/07/21 01:08 Sodium Chloride 0.9% 10 Ml Flush Syringe IV PRN PRN LINE FLUSH
[2021-08-08 18:27] LABS: Creatinine,Urine 79.4 mg/dL (0.1-20.0)
[2021-08-08] MEDS: DOCUSATE SODIUM 100 MG CAP PO SCH (21:13)
[2021-08-09] MEDS: IPRATROPIUM/ALBUTEROL SULFATE 3 ML AMPUL.NEB IH SCH ×3 (04:13→16:32)
[2021-08-09 06:13] LABS: Hematocrit 37.8 % (35.5-45.6); Hemoglobin 12.2 gm/dl (11.8-15.2); Mean Corpuscular HGB Conc 32 % (32-34); Mean Corpuscular Volume 95 fl (84-94); Platelet Count 142 K/mm3 (140-440); Red Blood Count 3.96 M/mm3 (3.65-5.03); Red Cell Distribution Width 13.6 % (13.2-15.2)
[2021-08-09] MEDS ORDERED: POTASSIUM CHLORIDE 10 MEQ 10 MEQ/100 ML BAG IV ONE (08:00)
[2021-08-09] MEDS ORDERED: MAGNESIUM SULFATE 4 GM/100 ML BAG IV ONE (08:00)
[2021-08-09 08:29] LABS: Band Neutrophils # (Manual) 0.1 K/mm3; Macrocytosis Few; Platelet Estimate Consistent w Auto; Total Cells Counted 100
[2021-08-09] MEDS: FAMOTIDINE 20 MG TAB PO SCH ×2 (09:31→22:28)
[2021-08-09] MEDS: APIXABAN 5 MG TAB PO SCH ×2 (09:32→22:28)
[2021-08-09] MEDS: POTASSIUM CHLORIDE ER 20 MEQ TAB PO SCH ×2 (09:32→13:26)
[2021-08-09] MEDS: DOCUSATE SODIUM 100 MG CAP PO SCH ×2 (09:32→22:28)
[2021-08-09] MEDS: METOPROLOL TARTRATE 100 MG TAB PO SCH ×3 (09:32→20:54)
--- NOTE | 2021-08-09 10:00 | Progress Note ---
Assessment and Plan 70 y/o male with known CHF, now with afib with rvr 08/09/21: Spoke with cards this am. Ok with transfer to [facility] for further care. Will sign off once out of unit. 1. Rate control per cards 2. Volume removal as BP and renal function will tolerate 3. Will stop scheduled duonebs 4. pulm htn directly related to left sided heart disease, no indication for COPD therapy. Subjective Date of service: 08/09/21 Principal diagnosis: Acute HFrEF Interval history: Remains on AMio drip. Still in fib with times of elevated rate but bp stable. Feels better. Weaned to room air. Objective - Constitutional Vitals: Vital Signs - 12hr 08/08/21 08/09/21 08/09/21 23:45 00:00 03:00 Temperature 97.9 F Pulse Rate 114 H Pulse Rate [ Right Radial] Respiratory 19 Rate Respiratory 16 Rate [chest] O2 Sat by Pulse 93 Oximetry 08/09/21 08/09/21 08/09/21 03:06 04:00 08:00 Temperature 98.7 F 97.6 F Pulse Rate 118 H Pulse Rate [ 119 H Right Radial] Respiratory 19 Rate Respiratory Rate [chest] O2 Sat by Pulse 93 Oximetry - Labs CBC & Chem 7: 08/09/21 05:30 08/09/21 05:30 Labs: Abnormal lab results 08/08/21 08/09/21 08/09/21 Range/Units 17:39 05:30 05:30 MCV 95 H (84-94) fl Seg Neuts % (Manual) 71.0 H (40.0-70.0) % Lymphocytes % (Manual) 11.0 L (13.4-35.0) % Monocytes % (Manual) 15.0 H (0.0-7.3) % Lymphocytes # (Manual) 0.5 L (1.2-5.4) K/mm3 Potassium 3.3 L (3.6-5.0) mmol/L BUN 38 H (9-20) mg/dL Creatinine 1.5 H (0.8-1.3) mg/dL Glucose 112 H (75-100) mg/dL Magnesium 1.60 L (1.7-2.3) mg/dL Urine Creatinine 79.4 H (0.1-20.0) mg/dL Medications & Allergies - Medications Allergies/Adverse Reactions: Allergies No Known Allergies Allergy (Unverified 01/16/17 18:42) Home Medications: Home Medications Medication Instructions Recorded Confirmed Last Taken Type Atenolol [Tenormin] 100 mg PO DAILY 01/16/17 08/08/21 1 Day Ago History ~08/07/21 Furosemide [Lasix TAB] 40 mg PO QDAY 01/16/17 08/08/21 1 Day Ago History ~08/07/21 Sildenafil Citrate [Viagra] 100 mg PO QDAY PRN 01/16/17 08/08/21 1 Day Ago History ~08/07/21 Valsartan/Hydrochlorothiazide 1 mg PO DAILY 01/16/17 08/08/21 1 Day Ago History [Diovan Hct 320-25 mg] ~08/07/21 Active Medications: Generic Name Dose Route Start Last Admin Trade Name Freq PRN Reason Stop Dose Admin Acetaminophen 650 mg 08/07/21 01:08 Acetaminophen 325 Mg Tab PO Q4H PRN Pain MILD(1-3)/Fever >100.5/RAMIREZ Albuterol 2.5 mg 08/07/21 01:08 Albuterol 2.5 Mg/3 Ml Nebu IH Q4HRT PRN Shortness Of Breath Albuterol/Ipratropium 1 ampul 08/07/21 02:00 08/09/21 04:13 Ipratropium/Albuterol Sulfate 3 Ml Ampul.Neb IH Not Given Q6HRT ALISON Apixaban 5 mg 08/07/21 10:00 08/09/21 09:32 Apixaban 5 Mg Tab PO 5 mg Q12HR ALISON Administration Protocol Docusate Sodium 100 mg 08/08/21 22:00 08/09/21 09:32 Docusate Sodium 100 Mg Cap PO 100 mg BID ALISON Administration Famotidine 20 mg 08/07/21 10:00 08/09/21 09:31 Famotidine 20 Mg Tab PO 20 mg BID ALISON Administration Furosemide 40 mg 08/07/21 06:00 08/08/21 17:21 Furosemide 40 Mg/4 Ml Inj IV 40 mg BID@0600,1800 ALISON Administration Hydromorphone HCl 0.5 mg 08/07/21 01:08 08/07/21 23:49 Hydromorphone 1 Mg/1 Ml Inj IV 0.5 mg Q3H PRN Administration Pain , Severe (7-10) Amiodarone HCl 900 mg/ 500 mls @ 33.333 mls/hr 08/07/21 13:30 08/08/21 10:35 Dextrose IV 0.5 mg/min DIRECT ALISON 16.667 mls/hr Administration Protocol 1 MG/MIN Magnesium Sulfate 4 gm in 100 mls @ 25 mls/hr 08/09/21 08:00 08/09/21 09:31 Magnesium Sulfate 4gm/100ml IV 08/09/21 11:59 25 mls/hr ONCE ONE Administration Metoprolol Tartrate 100 mg 08/07/21 20:00 08/09/21 09:32 Metoprolol Tartrate 100 Mg Tab PO 100 mg TID ALISON Administration Nitroglycerin 0.4 mg 08/07/21 01:08 Nitroglycerin 0.4 Mg Tab Subl SL .Q5MIN PRN Chest Pain Ondansetron HCl 4 mg 08/07/21 01:08 Ondansetron 4 Mg/2 Ml Inj IV Q8H PRN Nausea And Vomiting Oxycodone/Acetaminophen 1 tab 08/07/21 01:08 Oxycodone /Acetaminophen 5-325mg Tab PO Q6H PRN Pain, Moderate (4-6) Potassium Chloride 40 meq 08/09/21 08:00 08/09/21 09:32 Potassium Chloride Er 20 Meq Tab PO 08/09/21 12:01 40 meq Q4H ALISON Administration Sodium Chloride 10 ml 08/07/21 10:00 08/09/21 09:33 Sodium Chloride 0.9% 10 Ml Flush Syringe IV 10 ml BID ALISON Administration Sodium Chloride 10 ml 08/07/21 01:08 Sodium Chloride 0.9% 10 Ml Flush Syringe IV PRN PRN LINE FLUSH HEART Score - HEART Score Troponin: Troponin T < 0.010 ng/mL (0.00-0.029) 08/06/21 20:46
--- NOTE | 2021-08-09 12:15 | Progress Note ---
Assessment and Plan Assessment and plan: This is a 70-year-old male with HTN, HLD, CHF admitted with A. fib with RVR Neuro: NAD -maintain wake and sleep -Avoid delirium -Reorientation as needed -Maintain sleep-wake cycle Cardio: A. fib with RVR, cardiomyopathy, acute on chronic heart failure with reduced EF,h/o HTN and HLD -Cardiology consulted, patient recommendations -S/p beta-blockers -IV amiodarone and metoprolol 100 mg 3 times daily -Patient will continue IV amiodarone and metoprolol p.o. and continue diuresis per cardiology -Per cardiology: -Echocardiogram 08/07/2021 shows EF of 25 to 30%, moderate to severely dilated right ventricle, mildly hypokinetic right ventricle, severely dilated left atrium and right ventricle. Ascending aorta is dilated at 3.9 cm -Nuclear medicine cardiovascular study 01/29/2021 was normal -Echocardiogram 01/29/2021 showed a EF of 55 to 60%, normal left arterial diastolic function, normal right ventricular size -Blood pressure monitoring per protocol -Hold LENA inhibitors/ARB in setting of BENJAMIN Pulmonary: h/o pulmonary embolism -Per patient from embolism was approximately 1 year ago -Patient is on Eliquis -Supplemental oxygen as needed -SPO2 monitoring -Pulmonary hygiene -CCM/pulmonary consulted, appreciate recommendations GI: MO -Cardiac diet -Lifestyle/dietary modification encouraged -BR: Ramila -PPI -24-hour -2015 : Acute kidney injury, hypokalemia, hypomagnesemia -Presented with a BUN/creatinine of 42/1.7 -Trend BMP -Avoid nephrotoxic medications -Renally dose medications -Consider nephrology consult if worsens -Urine lites pending -Replete potassium and magnesium -Repeat a.m. labs Heme: Leukopenia, h/o PE -Trend CBC -Transfuse for hemoglobin less than 7 -Patient is anticoagulated on Eliquis -Monitor from bleeding ID: NAD -Monitor fever and BC curve -Monitor for signs symptoms of infection Endo: NAD -Avoid hypoglycemia -Hypoglycemia protocol The high probability of a clinically significant, sudden or life threatening deterioration of the [cardio] system(s) required my full and direct attention, intervention and personal management. The aggregate critical care time was [60] minutes. 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 Work-up in the emergency department revealed a troponin of 0.010 and proBNP of 420, CXR showed cardiomegaly and mild interstitial edema. Patient was admitted to the hospital service with CHF exacerbation with a cardiology consult. 08/07: Upon evaluation patient was found to be in A. fib with RVR and cardiology attempted to reduce heart rate with beta-blockers however there was minimal improvement and the patient was initiated on IV amiodarone with bolus and maintenance. Patient was transferred to the ICU with consults to [facility] for course of management. 08/08: Patient remains in atrial fibrillation with RVR and cardiology wishes to continue amiodarone drip and metoprolol 100mg 3 times daily. This morning patient was noted to be hypokalemic and hypomagnesemic which were both repleted. At rest patient's heart rates is in the 70s to 80s however with exertion does rise up to 160s. 08/09: Patient remains on amiodarone drip and still has A. fib with variable v entricular response however he has been titrated down to 2.5 amiodarone. Patient has been cleared by cardiology to transfer to the floor. Potassium and magnesium repleted again today and slightly better renal function noted. Hospitalist Physical - Constitutional Vitals: Temp Pulse Resp BP Pulse Ox 97.6 F 102 H 19 127/79 94 08/09/21 08:00 08/09/21 11:55 08/09/21 11:53 08/08/21 13:40 08/09/21 11:53 General appearance: Present: no acute distress, well-nourished, obese - EENT Eyes: Present: PERRL, EOM intact ENT: hearing intact, clear oral mucosa, dentition normal - Neck Neck: Present: supple, normal ROM - Respiratory Respiratory effort: normal Respiratory: bilateral: diminished - Cardiovascular Rhythm: irregularly irregular Heart Sounds: Present: S1 & S2. Absent: systolic murmur, diastolic murmur - Extremities Extremities: no ischemia, pulses intact, pulses symmetrical, normal temperature, normal color, Full ROM Extremity abnormal: edema - Peripheral Assessment Bilateral Lower Extremity Edema Type: Pitting Edema Degree: 3+ Capillary Refill: < 3 seconds Skin Temperature: Warm Bilateral Upper Extremity Edema Type: Pitting Edema Degree: 2+ Capillary Refill: < 3 seconds Skin Temperature: Warm Peripheral Pulses: within normal limits - Abdominal General gastrointestinal: soft, non-tender, non-distended, normal bowel sounds - Integumentary Integumentary: Present: warm, dry - Psychiatric Psychiatric: cooperative - Neurologic Neurologic: CNII-XII intact, no focal deficits, moves all extremities - Allied Health Allied health notes reviewed: nursing, RT, social work HEART Score - HEART Score Troponin: Troponin T < 0.010 ng/mL (0.00-0.029) 08/06/21 20:46 Results - Labs CBC & Chem 7: 08/09/21 05:30 08/09/21 05:30 Labs: Laboratory Last Values WBC 4.6 K/mm3 (4.5-11.0) 08/09/21 05:30 RBC 3.96 M/mm3 (3.65-5.03) 08/09/21 05:30 Hgb 12.2 gm/dl (11.8-15.2) 08/09/21 05:30 Hct 37.8 % (35.5-45.6) 08/09/21 05:30 MCV 95 fl (84-94) H 08/09/21 05:30 MCH 31 pg (28-32) 08/09/21 05:30 MCHC 32 % (32-34) 08/09/21 05:30 RDW 13.6 % (13.2-15.2) 08/09/21 05:30 Plt Count 142 K/mm3 (140-440) 08/09/21 05:30 Lymph % (Auto) 27.0 % (13.4-35.0) 08/06/21 20:46 Cloud % (Auto) Tooling Supervisor 08/09/21 05:30 Eos % (Auto) 1.8 % (0.0-4.3) 08/06/21 20:46 Baso % (Auto) 0.6 % (0.0-1.8) 08/06/21 20:46 Lymph # (Auto) 1.3 K/mm3 (1.2-5.4) 08/06/21 20:46 Cloud # (Auto) 0.8 K/mm3 (0.0-0.8) 08/06/21 20:46 Eos # (Auto) 0.1 K/mm3 (0.0-0.4) 08/06/21 20:46 Baso # (Auto) 0.0 K/mm3 (0.0-0.1) 08/06/21 20:46 Add Manual Diff Complete 08/09/21 05:30 Total Counted 100 08/09/21 05:30 Seg Neutrophils % 55.4 % (40.0-70.0) 08/06/21 20:46 Seg Neuts % (Manual) 71.0 % (40.0-70.0) H 08/09/21 05:30 Band Neutrophils % 2.0 % 08/09/21 05:30 Lymphocytes % (Manual) 11.0 % (13.4-35.0) L 08/09/21 05:30 Monocytes % (Manual) 15.0 % (0.0-7.3) H 08/09/21 05:30 Eosinophils % (Manual) 1.0 % (0.0-4.3) 08/09/21 05:30 Nucleated RBC % Not Reportable 08/09/21 05:30 Seg Neutrophils # 2.7 K/mm3 (1.8-7.7) 08/06/21 20:46 Seg Neutrophils # Man 3.3 K/mm3 (1.8-7.7) 08/09/21 05:30 Band Neutrophils # 0.1 K/mm3 08/09/21 05:30 Lymphocytes # (Manual) 0.5 K/mm3 (1.2-5.4) L 08/09/21 05:30 Abs React Lymphs (Man) 0.0 K/mm3 08/09/21 05:30 Monocytes # (Manual) 0.7 K/mm3 (0.0-0.8) 08/09/21 05:30 Eosinophils # (Manual) 0.0 K/mm3 (0.0-0.4) 08/09/21 05:30 Basophils # (Manual) 0.0 K/mm3 (0.0-0.1) 08/09/21 05:30 Metamyelocytes # 0.0 K/mm3 08/09/21 05:30 Myelocytes # 0.0 K/mm3 08/09/21 05:30 Promyelocytes # 0.0 K/mm3 08/09/21 05:30 Blast Cells # 0.0 K/mm3 08/09/21 05:30 WBC Morphology Not Reportable 08/09/21 05:30 Hypersegmented Neuts Not Reportable 08/09/21 05:30 Hyposegmented Neuts Not Reportable 08/09/21 05:30 Hypogranular Neuts Not Reportable 08/09/21 05:30 Smudge Cells Not Reportable 08/09/21 05:30 Toxic Granulation Not Reportable 08/09/21 05:30 Toxic Vacuolation Not Reportable 08/09/21 05:30 Dohle Bodies Not Reportable 08/09/21 05:30 Pelger-Huet Anomaly Not Reportable 08/09/21 05:30 Oj Rods Not Reportable 08/09/21 05:30 Platelet Estimate Consistent w auto 08/09/21 05:30 Clumped Platelets Not Reportable 08/09/21 05:30 Plt Clumps, EDTA Not Reportable 08/09/21 05:30 Large Platelets Not Reportable 08/09/21 05:30 Giant Platelets Not Reportable 08/09/21 05:30 Platelet Satelliting Not Reportable 08/09/21 05:30 Plt Morphology Comment Not Reportable 08/09/21 05:30 RBC Morphology Not Reportable 08/09/21 05:30 Dimorphic RBCs Not Reportable 08/09/21 05:30 Polychromasia Not Reportable 08/09/21 05:30 Hypochromasia Not Reportable 08/09/21 05:30 Poikilocytosis Not Reportable 08/09/21 05:30 Anisocytosis Not Reportable 08/09/21 05:30 Microcytosis Not Reportable 08/09/21 05:30 Macrocytosis Few 08/09/21 05:30 Spherocytes Not Reportable 08/09/21 05:30 Pappenheimer Bodies Not Reportable 08/09/21 05:30 Sickle Cells Not Reportable 08/09/21 05:30 Target Cells Not Reportable 08/09/21 05:30 Tear Drop Cells Not Reportable 08/09/21 05:30 Ovalocytes Not Reportable 08/09/21 05:30 Helmet Cells Not Reportable 08/09/21 05:30 [place] Detour Bodies Not Reportable 08/09/21 05:30 [place] Rings Not Reportable 08/09/21 05:30 [place] Cells Not Reportable 08/09/21 05:30 Bite Cells Not Reportable 08/09/21 05:30 Crenated Cell Not Reportable 08/09/21 05:30 Elliptocytes Not Reportable 08/09/21 05:30 Acanthocytes (Spur) Not Reportable 08/09/21 05:30 Rouleaux Not Reportable 08/09/21 05:30 Hemoglobin C Crystals Not Reportable 08/09/21 05:30 Schistocytes Not Reportable 08/09/21 05:30 Malaria parasites Not Reportable 08/09/21 05:30 Cedric Bodies Not Reportable 08/09/21 05:30 Hem Pathologist Commnt No 08/09/21 05:30 PT 15.1 Sec. (12.2-14.9) H 08/07/21 10:13 INR 1.07 (0.87-1.13) 08/07/21 10:13 APTT 28.9 Sec. (24.2-36.6) 08/07/21 10:13 Sodium 141 mmol/L (137-145) 08/09/21 05:30 Potassium 3.3 mmol/L (3.6-5.0) L 08/09/21 05:30 Chloride 100.5 mmol/L (98-107) 08/09/21 05:30 Carbon Dioxide 27 mmol/L (22-30) 08/09/21 05:30 Anion Gap 17 mmol/L 08/09/21 05:30 BUN 38 mg/dL (9-20) H 08/09/21 05:30 Creatinine 1.5 mg/dL (0.8-1.3) H 08/09/21 05:30 Estimated GFR 56 ml/min 08/09/21 05:30 BUN/Creatinine Ratio 25 % 08/09/21 05:30 Glucose 112 mg/dL (75-100) H 08/09/21 05:30 Calcium 9.0 mg/dL (8.4-10.2) 08/09/21 05:30 Phosphorus 3.50 mg/dL (2.5-4.5) 08/09/21 05:30 Magnesium 1.60 mg/dL (1.7-2.3) L 08/09/21 05:30 Total Bilirubin 0.50 mg/dL (0.1-1.2) 08/06/21 20:46 Direct Bilirubin 0.2 mg/dL (0-0.2) 08/06/21 20:46 Indirect Bilirubin 0.3 mg/dL 08/06/21 20:46 AST 33 units/L (5-40) 08/06/21 20:46 ALT 51 units/L (7-56) 08/06/21 20:46 Alkaline Phosphatase 53 units/L (35-129) 08/06/21 20:46 Troponin T < 0.010 ng/mL (0.00-0.029) 08/06/21 20:46 NT-Pro-B Natriuret Pep 4020 pg/mL (0-900) H 08/06/21 20:46 Total Protein 6.3 g/dL (6.3-8.2) 08/06/21 20:46 Albumin 3.6 g/dL (3.9-5) L 08/06/21 20:46 Albumin/Globulin Ratio 1.3 % 08/06/21 20:46 Urine Color Yellow (Yellow) 08/06/21 21:09 Urine Turbidity Clear (Clear) 08/06/21 21:09 Urine pH 6.0 (5.0-7.0) 08/06/21 21:09 Ur Specific [place] 1.009 (1.003-1.030) 08/06/21 21:09 Urine Protein 100 mg/dl mg/dL (Negative) 08/06/21 21:09 Urine Glucose (UA) Neg mg/dL (Negative) 08/06/21 21:09 Urine Ketones Neg mg/dL (Negative) 08/06/21 21:09 Urine Blood Neg (Negative) 08/06/21 21:09 Urine Nitrite Neg (Negative) 08/06/21 21:09 Urine Bilirubin Neg (Negative) 08/06/21 21:09 Urine Urobilinogen < 2.0 mg/dL (<2.0) 08/06/21 21:09 Ur Leukocyte Esterase Neg (Negative) 08/06/21 21:09 Urine WBC (Auto) 1.0 /HPF (0.0-6.0) 08/06/21 21:09 Urine RBC (Auto) < 1.0 /HPF (0.0-6.0) 08/06/21 21:09 Urine Osmolality 450 Mosm/kg 08/08/21 17:39 Urine Creatinine 79.4 mg/dL (0.1-20.0) H 08/08/21 17:39 Urine Sodium 62 mmol/L 08/08/21 17:39 [place]ley/IV: Voiding Method Urinal Active Medications - Current Medications Current Medications: Generic Name Dose Route Start Last Admin Trade Name Freq PRN Reason Stop Dose Admin Acetaminophen 650 mg 08/07/21 01:08 Acetaminophen 325 Mg Tab PO Q4H PRN Pain MILD(1-3)/Fever >100.5/RAMIREZ Albuterol 2.5 mg 08/07/21 01:08 Albuterol 2.5 Mg/3 Ml Nebu IH Q4HRT PRN Shortness Of Breath Albuterol/Ipratropium 1 ampul 08/07/21 02:00 08/09/21 10:31 Ipratropium/Albuterol Sulfate 3 Ml Ampul.Neb IH 1 ampul Q6HRT ALISON Administration Apixaban 5 mg 08/07/21 10:00 08/09/21 09:32 Apixaban 5 Mg Tab PO 5 mg Q12HR ALISON Administration Protocol Docusate Sodium 100 mg 08/08/21 22:00 08/09/21 09:32 Docusate Sodium 100 Mg Cap PO 100 mg BID ALISON Administration Famotidine 20 mg 08/07/21 10:00 08/09/21 09:31 Famotidine 20 Mg Tab PO 20 mg BID ALISON Administration Furosemide 40 mg 08/07/21 06:00 08/08/21 17:21 Furosemide 40 Mg/4 Ml Inj IV 40 mg BID@0600,1800 ALISON Administration Hydromorphone HCl 0.5 mg 08/07/21 01:08 08/07/21 23:49 Hydromorphone 1 Mg/1 Ml Inj IV 0.5 mg Q3H PRN Administration Pain , Severe (7-10) Amiodarone HCl 900 mg/ 500 mls @ 33.333 mls/hr 08/07/21 13:30 08/08/21 10:35 Dextrose IV 0.5 mg/min DIRECT ALISON 16.667 mls/hr Administration Protocol 1 MG/MIN Metoprolol Tartrate 100 mg 08/07/21 20:00 08/09/21 09:32 Metoprolol Tartrate 100 Mg Tab PO 100 mg TID ALISON Administration Nitroglycerin 0.4 mg 08/07/21 01:08 Nitroglycerin 0.4 Mg Tab Subl SL .Q5MIN PRN Chest Pain Ondansetron HCl 4 mg 08/07/21 01:08 Ondansetron 4 Mg/2 Ml Inj IV Q8H PRN Nausea And Vomiting Oxycodone/Acetaminophen 1 tab 08/07/21 01:08 Oxycodone /Acetaminophen 5-325mg Tab PO Q6H PRN Pain, Moderate (4-6) Sodium Chloride 10 ml 08/07/21 10:00 08/09/21 09:33 Sodium Chloride 0.9% 10 Ml Flush Syringe IV 10 ml BID ALISON Administration Sodium Chloride 10 ml 08/07/21 01:08 Sodium Chloride 0.9% 10 Ml Flush Syringe IV PRN PRN LINE FLUSH
--- NOTE | 2021-08-09 12:55 | Progress Note ---
Assessment and Plan Echo 08/07/2021: EF 25 to 30%, LV systolic function moderately to severely decreased, right ventricle is moderate to severely dilated, right ventricle mildly hypokinetic right atrium is moderately dilated, left atrium is severely dilated. Mild aortic regurgitation, mild mitral regurgitation. Mild tricuspid regurgitation moderate pulmonary hypertension. Ascending aorta is dilated 3.9 cm Nuclear medicine cardiovascular study: 01/29/2021: Pharmacologic stress nuclear study is normal. Stress and rest SPECT images demonstrate homogeneous tracer distribution throughout the myocardium. Gated SPECTimaging reveals normal myocardial thickening and wall motion. The left ventricular ejection fraction was normal Echocardiogram 01/29/2021 -There is normal LV systolic function.LV wall thickness is mildly increased. The estimated left ventricle ejection fraction is 55-60%. Normal left atrial pressure and diastolic function. There is normal right ventricular size, wall dimension, and systolic function. There is mild aortic valve sclerosis without significant stenosis. There is mild aortic regurgitation. There is no mitral regurgitation. There is mild tricuspid regurgitation. The estimated RV systolic pressure is 32.99 mmHg. There is trivial pulmonic regurgitation. The ascending aorta is mildly dilated. Ascending Aortic Diameter: 4 cm. A. fib RVR Hypokalemia New cardiomyopathy (? Tachycardia induced) Acute HFrEF 25-30% BENJAMIN Hypertension Hyperlipidemia H/O pulmonary embolisms (anticoagulated on Eliquis) -1966cc/24 hours Plan for more diuresis x 2-3 more days Plan for DCCV once compensated say Tuesday or Continue amiodarone drip and metoprolol 100 mg TID Continue oral anticoagulation Holding losartan secondary to BENJAMIN Strict I's and O's Monitor potassium and creatinine Subjective Date of service: 08/09/21 Principal diagnosis: Acute HFrEF Interval history: Patient sitting up in bed and states that he feels much better. Still unable to lie flat. Objective Vital Signs Temp Pulse Pulse Pulse Resp Resp Resp 08/09/21 11:55 102 H 08/09/21 11:53 102 H 19 08/09/21 10:31 61 18 08/09/21 10:00 08/09/21 08:00 97.6 F 106 H 106 H 19 08/09/21 04:00 118 H 119 H 19 08/09/21 03:06 98.7 F 08/09/21 03:00 16 08/09/21 00:00 114 H 19 08/08/21 23:45 97.9 F 08/08/21 20:00 108 H 22 08/08/21 19:15 08/08/21 16:00 17 08/08/21 15:00 20 08/08/21 13:40 97 H BP Pulse Ox 08/09/21 11:55 08/09/21 11:53 94 08/09/21 10:31 08/09/21 10:00 97 08/09/21 08:00 95 08/09/21 04:00 93 08/09/21 03:06 08/09/21 03:00 08/09/21 00:00 93 08/08/21 23:45 08/08/21 20:00 95 08/08/21 19:15 93 08/08/21 16:00 94 08/08/21 15:00 08/08/21 13:40 127/79 - Physical Examination HEENT: Positive: PERRL Neck: Positive: trachea midline Cardiac: Positive: Irregularly Regular Lungs: Positive: Decreased Breath Sounds Neuro: Positive: Grossly Intact Abdomen: Positive: Soft, Active Bowel Sounds Skin: Negative: Rash, Suspicious Lesions, Ulceration Extremities: Present: upper extr. pulses, lower extr. pulses, +1 Edema, warm - Labs and Meds CBC 08/09/21 Range/Units 05:30 WBC 4.6 (4.5-11.0) K/mm3 RBC 3.96 (3.65-5.03) M/mm3 Hgb 12.2 (11.8-15.2) gm/dl Hct 37.8 (35.5-45.6) % Plt Count 142 (140-440) K/mm3 Comprehensive Metabolic Panel 08/09/21 Range/Units 05:30 Sodium 141 (137-145) mmol/L Potassium 3.3 L (3.6-5.0) mmol/L Chloride 100.5 (98-107) mmol/L Carbon Dioxide 27 (22-30) mmol/L BUN 38 H (9-20) mg/dL Creatinine 1.5 H (0.8-1.3) mg/dL Glucose 112 H (75-100) mg/dL Calcium 9.0 (8.4-10.2) mg/dL - Imaging and Cardiology EKG: report reviewed Echo: report reviewed
[2021-08-09] MEDS: AMIODARONE 900 MG in DEXTROSE 5% IN WATER 482 ML IV SCH (16:57)
[2021-08-09] MEDS: FUROSEMIDE 40 MG/4 ML INJ IV SCH (17:01)
[2021-08-09] MEDS: HYDROmorphone 1 MG/1 ML INJ IV PRN (17:01)
[2021-08-10] MEDS: FUROSEMIDE 40 MG/4 ML INJ IV SCH ×2 (06:40→17:36)
[2021-08-10] MEDS: METOPROLOL TARTRATE 100 MG TAB PO SCH ×3 (08:45→21:41)
[2021-08-10] MEDS: FAMOTIDINE 20 MG TAB PO SCH ×2 (09:12→21:40)
[2021-08-10] MEDS: APIXABAN 5 MG TAB PO SCH ×2 (09:12→21:40)
[2021-08-10] MEDS: DOCUSATE SODIUM 100 MG CAP PO SCH ×2 (09:12→21:40)
--- NOTE | 2021-08-10 09:49 | Progress Note ---
Assessment and Plan 70 y/o male with known CHF, now with afib with rvr 08/10/21: Stable pulm status. Will see as needed. 08/09/21: Spoke with cards this am. Ok with transfer to [facility] for further care. Will sign off once out of unit. 1. Rate control per cards 2. Volume removal as BP and renal function will tolerate 3. Will stop scheduled duonebs 4. pulm htn directly related to left sided heart disease, no indication for COPD therapy. Subjective Date of service: 08/10/21 Principal diagnosis: Acute HFrEF Interval history: Successful transfer out of unit. Stable pulm status. Objective - Constitutional Vitals: Vital Signs - 12hr 08/09/21 08/10/21 08/10/21 23:40 03:55 04:00 Temperature 97.3 F L 97.2 F L Pulse Rate 94 H 84 118 H Pulse Rate [ 102 H Right Radial] Respiratory 20 18 19 Rate Blood Pressure 123/92 Blood Pressure 123/90 [Right] O2 Sat by Pulse 95 96 94 Oximetry 08/10/21 08/10/21 08:05 08:45 Temperature 97.6 F Pulse Rate 79 104 H Pulse Rate [ Right Radial] Respiratory 24 Rate Blood Pressure 128/86 118/77 Blood Pressure [Right] O2 Sat by Pulse 92 Oximetry - Labs CBC & Chem 7: 08/09/21 05:30 08/09/21 05:30 Medications & Allergies - Medications Allergies/Adverse Reactions: Allergies No Known Allergies Allergy (Unverified 01/16/17 18:42) Home Medications: Home Medications Medication Instructions Recorded Confirmed Last Taken Type Atenolol [Tenormin] 100 mg PO DAILY 01/16/17 08/08/21 1 Day Ago History ~08/07/21 Furosemide [Lasix TAB] 40 mg PO QDAY 01/16/17 08/08/21 1 Day Ago History ~08/07/21 Sildenafil Citrate [Viagra] 100 mg PO QDAY PRN 01/16/17 08/08/21 1 Day Ago History ~08/07/21 Valsartan/Hydrochlorothiazide 1 mg PO DAILY 01/16/17 08/08/21 1 Day Ago History [Diovan Hct 320-25 mg] ~08/07/21 Active Medications: Generic Name Dose Route Start Last Admin Trade Name Freq PRN Reason Stop Dose Admin Acetaminophen 650 mg 08/07/21 01:08 Acetaminophen 325 Mg Tab PO Q4H PRN Pain MILD(1-3)/Fever >100.5/RAMIREZ Albuterol 2.5 mg 08/07/21 01:08 Albuterol 2.5 Mg/3 Ml Nebu IH Q4HRT PRN Shortness Of Breath Apixaban 5 mg 08/07/21 10:00 08/10/21 09:12 Apixaban 5 Mg Tab PO 5 mg Q12HR ALISON Administration Protocol Docusate Sodium 100 mg 08/08/21 22:00 08/10/21 09:12 Docusate Sodium 100 Mg Cap PO 100 mg BID ALISON Administration Famotidine 20 mg 08/07/21 10:00 08/10/21 09:12 Famotidine 20 Mg Tab PO 20 mg BID ALISON Administration Furosemide 40 mg 08/07/21 06:00 08/10/21 06:40 Furosemide 40 Mg/4 Ml Inj IV 40 mg BID@0600,1800 ALISON Administration Hydromorphone HCl 0.5 mg 08/07/21 01:08 08/09/21 17:01 Hydromorphone 1 Mg/1 Ml Inj IV 0.5 mg Q3H PRN Administration Pain , Severe (7-10) Amiodarone HCl 900 mg/ 500 mls @ 33.333 mls/hr 08/07/21 13:30 08/09/21 16:57 Dextrose IV 0.5 mg/min DIRECT ALISON 16.667 mls/hr Administration Protocol 1 MG/MIN Metoprolol Tartrate 100 mg 08/07/21 20:00 08/10/21 08:45 Metoprolol Tartrate 100 Mg Tab PO 100 mg TID ALISON Administration Nitroglycerin 0.4 mg 08/07/21 01:08 Nitroglycerin 0.4 Mg Tab Subl SL .Q5MIN PRN Chest Pain Ondansetron HCl 4 mg 08/07/21 01:08 Ondansetron 4 Mg/2 Ml Inj IV Q8H PRN Nausea And Vomiting Oxycodone/Acetaminophen 1 tab 08/07/21 01:08 Oxycodone /Acetaminophen 5-325mg Tab PO Q6H PRN Pain, Moderate (4-6) Sodium Chloride 10 ml 08/07/21 10:00 08/10/21 09:13 Sodium Chloride 0.9% 10 Ml Flush Syringe IV 10 ml BID ALISON Administration Sodium Chloride 10 ml 08/07/21 01:08 Sodium Chloride 0.9% 10 Ml Flush Syringe IV PRN PRN LINE FLUSH HEART Score - HEART Score Troponin: Troponin T < 0.010 ng/mL (0.00-0.029) 08/06/21 20:46
[2021-08-10 11:53] LABS: Calcium 9.1 mg/dL (8.4-10.2)
[2021-08-10] MEDS ORDERED: FUROSEMIDE 40 MG/4 ML INJ IV SCH (13:00)
--- NOTE | 2021-08-10 13:10 | Progress Note ---
Assessment and Plan Assessment and plan: This is a 70-year-old male with HTN, HLD, CHF admitted with A. fib with RVR #A. fib with RVR #Tachycardia induced cardiomyopathy #Acute on chronic systolic heart failure #Hypertension #Hyperlipidemia -Cardiology consulted; appreciate recommendations -Continue with IV amiodarone gtt in the setting of continue A. fib with RVR. Amiodarone drip will not be titrated at rate of 0.5, and is why patient was safe to transfer from ICU to floor. -Continue Eliquis (home medication) in the setting of A. fib with RVR -Increased IV Lasix from 40 mg twice daily to 60 mg twice daily to assist with further diuresis. Patient still has 2+ pitting edema bilateral lower extremities to mid thigh. -Continue p.o. metoprolol 100 mg 3 times daily -TTE (08/07/2021 reveals EF of 25-30% (previously 50-55%), moderately to severely dilated right ventricle, mildly hypokinetic right ventricle, severely dilated left atrium and right ventricle. Previous echocardiogram (01/29/2021) revealed EF of 55-60% with normal left atrial diastolic function and normal right ventricular size -LENA inhibitor/ARB held in setting of BENJAMIN. We will continue to hold given increase and diuretics. -Continue strict I's/O's, salt restriction, fluid restriction, daily weights -Continue to monitor #H/o pulmonary embolism -Per patient from embolism was approximately 1 year ago #Morbid obesity #Weight loss counseling -Cardiac diet -Lifestyle/dietary modification encouraged #BENJAMIN on CKD stage IIIa-resolved -Creatinine 1.5 (baseline unknown) -Renally dose medications and avoid nephrotoxic drugs -Continue to monitor #Hypokalemia-resolved #Hypomagnesemia-resolved -Continue to monitor #Hyperglycemia -No known history of diabetes -Blood glucose goal [id number] while hospitalized -Continue with low SSI #Advanced care planning -Disease education conducted, care plan discussed, diagnoses discussed, prognosis discussed, and patient acknowledges understanding with care plan -Time: +20 minutes Disposition Plan: Continue medical management Total Time Spent with Patient (Minutes): 35 History Interval history: The patient was transferred out of the ICU to the floor due to significant improvement. Hospitalist Physical - Constitutional Vitals: Temp Pulse Resp BP Pulse Ox 97.8 F 89 20 118/88 94 08/10/21 11:36 08/10/21 11:36 08/10/21 11:36 08/10/21 11:36 08/10/21 11:37 General appearance: Present: no acute distress, well-nourished, obese - EENT Eyes: Present: PERRL, EOM intact ENT: hearing intact, clear oral mucosa, dentition normal - Neck Neck: Present: supple, normal ROM - Respiratory Respiratory effort: normal - Cardiovascular Rhythm: irregularly irregular Heart Sounds: Present: S1 & S2 - Extremities Extremities: no ischemia, pulses intact, pulses symmetrical, normal temperature, normal color Extremity abnormal: edema (2+ pitting edema to bilateral mid thigh) Peripheral Pulses: within normal limits - Abdominal General gastrointestinal: soft, non-tender, non-distended, normal bowel sounds - Integumentary Integumentary: Present: clear, warm, dry - Psychiatric Psychiatric: appropriate mood/affect, intact judgment & insight, memory intact, cooperative - Neurologic Neurologic: CNII-XII intact, moves all extremities - Allied Health Allied health notes reviewed: nursing HEART Score - HEART Score Troponin: Troponin T < 0.010 ng/mL (0.00-0.029) 08/06/21 20:46 Results - Labs CBC & Chem 7: 08/09/21 05:30 08/10/21 10:45 Labs: Laboratory Last Values WBC 4.6 K/mm3 (4.5-11.0) 08/09/21 05:30 RBC 3.96 M/mm3 (3.65-5.03) 08/09/21 05:30 Hgb 12.2 gm/dl (11.8-15.2) 08/09/21 05:30 Hct 37.8 % (35.5-45.6) 08/09/21 05:30 MCV 95 fl (84-94) H 08/09/21 05:30 MCH 31 pg (28-32) 08/09/21 05:30 MCHC 32 % (32-34) 08/09/21 05:30 RDW 13.6 % (13.2-15.2) 08/09/21 05:30 Plt Count 142 K/mm3 (140-440) 08/09/21 05:30 Lymph % (Auto) 27.0 % (13.4-35.0) 08/06/21 20:46 [place] % (Auto) 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 08/09/21 05:30 Eos % (Auto) 1.8 % (0.0-4.3) 08/06/21 20:46 Baso % (Auto) 0.6 % (0.0-1.8) 08/06/21 20:46 Lymph # (Auto) 1.3 K/mm3 (1.2-5.4) 08/06/21 20:46 [place] # (Auto) 0.8 K/mm3 (0.0-0.8) 08/06/21 20:46 Eos # (Auto) 0.1 K/mm3 (0.0-0.4) 08/06/21 20:46 Baso # (Auto) 0.0 K/mm3 (0.0-0.1) 08/06/21 20:46 Add Manual Diff Complete 08/09/21 05:30 Total Counted 100 08/09/21 05:30 Seg Neutrophils % 55.4 % (40.0-70.0) 08/06/21 20:46 Seg Neuts % (Manual) 71.0 % (40.0-70.0) H 08/09/21 05:30 Band Neutrophils % 2.0 % 08/09/21 05:30 Lymphocytes % (Manual) 11.0 % (13.4-35.0) L 08/09/21 05:30 Monocytes % (Manual) 15.0 % (0.0-7.3) H 08/09/21 05:30 Eosinophils % (Manual) 1.0 % (0.0-4.3) 08/09/21 05:30 Nucleated RBC % Not Reportable 08/09/21 05:30 Seg Neutrophils # 2.7 K/mm3 (1.8-7.7) 08/06/21 20:46 Seg Neutrophils # Man 3.3 K/mm3 (1.8-7.7) 08/09/21 05:30 Band Neutrophils # 0.1 K/mm3 08/09/21 05:30 Lymphocytes # (Manual) 0.5 K/mm3 (1.2-5.4) L 08/09/21 05:30 Abs React Lymphs (Man) 0.0 K/mm3 08/09/21 05:30 Monocytes # (Manual) 0.7 K/mm3 (0.0-0.8) 08/09/21 05:30 Eosinophils # (Manual) 0.0 K/mm3 (0.0-0.4) 08/09/21 05:30 Basophils # (Manual) 0.0 K/mm3 (0.0-0.1) 08/09/21 05:30 Metamyelocytes # 0.0 K/mm3 08/09/21 05:30 Myelocytes # 0.0 K/mm3 08/09/21 05:30 Promyelocytes # 0.0 K/mm3 08/09/21 05:30 Blast Cells # 0.0 K/mm3 08/09/21 05:30 WBC Morphology Not Reportable 08/09/21 05:30 Hypersegmented Neuts Not Reportable 08/09/21 05:30 Hyposegmented Neuts Not Reportable 08/09/21 05:30 Hypogranular Neuts Not Reportable 08/09/21 05:30 Smudge Cells Not Reportable 08/09/21 05:30 Toxic Granulation Not Reportable 08/09/21 05:30 Toxic Vacuolation Not Reportable 08/09/21 05:30 Dohle Bodies Not Reportable 08/09/21 05:30 Pelger-Huet Anomaly Not Reportable 08/09/21 05:30 Oj Rods Not Reportable 08/09/21 05:30 Platelet Estimate Consistent w auto 08/09/21 05:30 Clumped Platelets Not Reportable 08/09/21 05:30 Plt Clumps, EDTA Not Reportable 08/09/21 05:30 Large Platelets Not Reportable 08/09/21 05:30 Giant Platelets Not Reportable 08/09/21 05:30 Platelet Satelliting Not Reportable 08/09/21 05:30 Plt Morphology Comment Not Reportable 08/09/21 05:30 RBC Morphology Not Reportable 08/09/21 05:30 Dimorphic RBCs Not Reportable 08/09/21 05:30 Polychromasia Not Reportable 08/09/21 05:30 Hypochromasia Not Reportable 08/09/21 05:30 Poikilocytosis Not Reportable 08/09/21 05:30 Anisocytosis Not Reportable 08/09/21 05:30 Microcytosis Not Reportable 08/09/21 05:30 Macrocytosis Few 08/09/21 05:30 Spherocytes Not Reportable 08/09/21 05:30 Pappenheimer Bodies Not Reportable 08/09/21 05:30 Sickle Cells Not Reportable 08/09/21 05:30 Target Cells Not Reportable 08/09/21 05:30 Tear Drop Cells Not Reportable 08/09/21 05:30 Ovalocytes Not Reportable 08/09/21 05:30 Helmet Cells Not Reportable 08/09/21 05:30 [place] Bodies Not Reportable 08/09/21 05:30 [place] Rings Not Reportable 08/09/21 05:30 [place] Cells Not Reportable 08/09/21 05:30 Bite Cells Not Reportable 08/09/21 05:30 Crenated Cell Not Reportable 08/09/21 05:30 Elliptocytes Not Reportable 08/09/21 05:30 Acanthocytes (Spur) Not Reportable 08/09/21 05:30 Rouleaux Not Reportable 08/09/21 05:30 Hemoglobin C Crystals Not Reportable 08/09/21 05:30 Schistocytes Not Reportable 08/09/21 05:30 Malaria parasites Not Reportable 08/09/21 05:30 Cedric Bodies Not Reportable 08/09/21 05:30 Hem Pathologist Commnt No 08/09/21 05:30 PT 15.1 Sec. (12.2-14.9) H 08/07/21 10:13 INR 1.07 (0.87-1.13) 08/07/21 10:13 APTT 28.9 Sec. (24.2-36.6) 08/07/21 10:13 Sodium 139 mmol/L (137-145) 08/10/21 10:45 Potassium 3.6 mmol/L (3.6-5.0) 08/10/21 10:45 Chloride 98.0 mmol/L (98-107) 08/10/21 10:45 Carbon Dioxide 30 mmol/L (22-30) 08/10/21 10:45 Anion Gap 15 mmol/L 08/10/21 10:45 BUN 36 mg/dL (9-20) H 08/10/21 10:45 Creatinine 1.5 mg/dL (0.8-1.3) H 08/10/21 10:45 Estimated GFR 56 ml/min 08/10/21 10:45 BUN/Creatinine Ratio 24 % 08/10/21 10:45 Glucose 164 mg/dL (75-100) H 08/10/21 10:45 Calcium 9.1 mg/dL (8.4-10.2) 08/10/21 10:45 Phosphorus 3.00 mg/dL (2.5-4.5) 08/10/21 10:45 Magnesium 1.60 mg/dL (1.7-2.3) L 08/09/21 05:30 Total Bilirubin 0.50 mg/dL (0.1-1.2) 08/06/21 20:46 Direct Bilirubin 0.2 mg/dL (0-0.2) 08/06/21 20:46 Indirect Bilirubin 0.3 mg/dL 08/06/21 20:46 AST 33 units/L (5-40) 08/06/21 20:46 ALT 51 units/L (7-56) 08/06/21 20:46 Alkaline Phosphatase 53 units/L (35-129) 08/06/21 20:46 Troponin T < 0.010 ng/mL (0.00-0.029) 08/06/21 20:46 NT-Pro-B Natriuret Pep 4020 pg/mL (0-900) H 08/06/21 20:46 Total Protein 6.3 g/dL (6.3-8.2) 08/06/21 20:46 Albumin 3.6 g/dL (3.9-5) L 08/06/21 20:46 Albumin/Globulin Ratio 1.3 % 08/06/21 20:46 Urine Color Yellow (Yellow) 08/06/21 21:09 Urine Turbidity Clear (Clear) 08/06/21 21:09 Urine pH 6.0 (5.0-7.0) 08/06/21 21:09 Ur Specific [place] 1.009 (1.003-1.030) 08/06/21 21:09 Urine Protein 100 mg/dl mg/dL (Negative) 08/06/21 21:09 Urine Glucose (UA) Neg mg/dL (Negative) 08/06/21 21:09 Urine Ketones Neg mg/dL (Negative) 08/06/21 21:09 Urine Blood Neg (Negative) 08/06/21 21:09 Urine Nitrite Neg (Negative) 08/06/21 21:09 Urine Bilirubin Neg (Negative) 08/06/21 21:09 Urine Urobilinogen < 2.0 mg/dL (<2.0) 08/06/21 21:09 Ur Leukocyte Esterase Neg (Negative) 08/06/21 21:09 Urine WBC (Auto) 1.0 /HPF (0.0-6.0) 08/06/21 21:09 Urine RBC (Auto) < 1.0 /HPF (0.0-6.0) 08/06/21 21:09 Urine Osmolality 450 Mosm/kg 08/08/21 17:39 Urine Creatinine 79.4 mg/dL (0.1-20.0) H 08/08/21 17:39 Urine Sodium 62 mmol/L 08/08/21 17:39 [place]/IV: Voiding Method Urinal Active Medications - Current Medications Current Medications: Generic Name Dose Route Start Last Admin Trade Name Freq PRN Reason Stop Dose Admin Acetaminophen 650 mg 08/07/21 01:08 Acetaminophen 325 Mg Tab PO Q4H PRN Pain MILD(1-3)/Fever >100.5/RAMIREZ Albuterol 2.5 mg 08/07/21 01:08 Albuterol 2.5 Mg/3 Ml Nebu IH Q4HRT PRN Shortness Of Breath Apixaban 5 mg 08/07/21 10:00 08/10/21 09:12 Apixaban 5 Mg Tab PO 5 mg Q12HR ALISON Administration Protocol Docusate Sodium 100 mg 08/08/21 22:00 08/10/21 09:12 Docusate Sodium 100 Mg Cap PO 100 mg BID ALISON Administration Famotidine 20 mg 08/07/21 10:00 08/10/21 09:12 Famotidine 20 Mg Tab PO 20 mg BID ALISON Administration Furosemide 60 mg 08/10/21 13:00 Furosemide 40 Mg/4 Ml Inj IV BID@0600,1800 ALISON Hydromorphone HCl 0.5 mg 08/07/21 01:08 08/09/21 17:01 Hydromorphone 1 Mg/1 Ml Inj IV 0.5 mg Q3H PRN Administration Pain , Severe (7-10) Amiodarone HCl 900 mg/ 500 mls @ 33.333 mls/hr 08/07/21 13:30 08/09/21 16:57 Dextrose IV 0.5 mg/min DIRECT ALISON 16.667 mls/hr Administration Protocol 1 MG/MIN Metoprolol Tartrate 100 mg 08/07/21 20:00 08/10/21 08:45 Metoprolol Tartrate 100 Mg Tab PO 100 mg TID ALISON Administration Nitroglycerin 0.4 mg 08/07/21 01:08 Nitroglycerin 0.4 Mg Tab Subl SL .Q5MIN PRN Chest Pain Ondansetron HCl 4 mg 08/07/21 01:08 Ondansetron 4 Mg/2 Ml Inj IV Q8H PRN Nausea And Vomiting Oxycodone/Acetaminophen 1 tab 08/07/21 01:08 Oxycodone /Acetaminophen 5-325mg Tab PO Q6H PRN Pain, Moderate (4-6) Sodium Chloride 10 ml 08/07/21 10:00 08/10/21 09:13 Sodium Chloride 0.9% 10 Ml Flush Syringe IV 10 ml BID ALISON Administration Sodium Chloride 10 ml 08/07/21 01:08 Sodium Chloride 0.9% 10 Ml Flush Syringe IV PRN PRN LINE FLUSH
--- NOTE | 2021-08-10 13:59 | Progress Note ---
Assessment and Plan Echo 08/07/2021-EF 25 to 30%, LV systolic function moderately to severely decreased, right ventricle is moderate to severely dilated, right ventricle mildly hypokinetic right atrium is moderately dilated, left atrium is severely dilated. Mild aortic regurgitation, mild mitral regurgitation. Mild tricuspid regurgitation moderate pulmonary hypertension. Ascending aorta is dilated 3.9 cm Nuclear medicine cardiovascular study: 01/29/2021: Pharmacologic stress nuclear study is normal. Stress and rest SPECT images demonstrate homogeneous tracer distribution throughout the myocardium. Gated SPECTimaging reveals normal myocardial thickening and wall motion. The left ventricular ejection fraction was normal Echocardiogram 01/29/2021 -There is normal LV systolic function.LV wall thickness is mildly increased. The estimated left ventricle ejection fraction is 55-60%. Normal left atrial pressure and diastolic function. There is normal right ventricular size, wall dimension, and systolic function. There is mild aortic valve sclerosis without significant stenosis. There is mild aortic regurgitation. There is no mitral regurgitation. There is mild tricuspid regurgitation. The estimated RV systolic pressure is 32.99 mmHg. There is trivial pulmonic regurgitation. The ascending aorta is mildly dilated. Ascending Aortic Diameter: 4 cm. A. fib RVR Hypokalemia New cardiomyopathy (? Tachycardia induced) Acute HFrEF 25-30% BENJAMIN Hypertension Hyperlipidemia H/O pulmonary embolisms (anticoagulated on Eliquis) Plan: Continue amiodarone drip for rate control Continue to hold amlodipine due to soft blood pressures Continue metoprolol 100 mg p.o. 3 times daily. Continue Eliquis for anticoagulation We will hold losartan due to BENJAMIN Plan for cardioversion on Tuesday Patient seen in conjunction with Dr. Murrell who agrees with this plan of care. We will continue to follow - Patient Problems (1) Acute HFrEF (heart failure with reduced ejection fraction) Current Visit: Yes Status: Acute (2) Atrial fibrillation with RVR Current Visit: Yes Status: Acute (3) BENJAMIN (acute kidney injury) Current Visit: Yes Status: Acute (4) Cardiomyopathy Current Visit: Yes Status: Acute (5) Hyperlipidemia Current Visit: Yes Status: Acute (6) Hypertension Current Visit: No Status: Acute Subjective Date of service: 08/10/21 Principal diagnosis: Acute HFrEF Interval history: Patient sitting in recliner and reports breathing has improved afib w/ RVR with episodes into 130s Objective Vital Signs Temp Pulse Pulse Pulse Resp BP BP 08/10/21 11:37 10/25/21 11:36 97.8 F 89 20 118/88 08/10/21 08:45 104 H 118/77 08/10/21 08:05 97.6 F 79 24 128/86 08/10/21 08:00 104 H 104 H 17 08/10/21 04:00 118 H 102 H 19 08/10/21 03:55 97.2 F L 84 18 123/90 08/09/21 23:40 97.3 F L 94 H 20 123/92 08/09/21 19:28 97.5 F L 78 16 122/98 08/09/21 15:47 98.9 F 72 18 124/98 08/09/21 14:20 97.5 F L 53 L 20 128/96 08/09/21 14:19 97.5 F L 20 08/09/21 14:16 97.9 F 111 H 22 128/96 Pulse Ox 08/10/21 11:37 94 08/10/21 11:36 89 08/10/21 08:45 08/10/21 08:05 92 08/10/21 08:00 94 08/10/21 04:00 94 08/10/21 03:55 96 08/09/21 23:40 95 08/09/21 19:28 95 08/09/21 15:47 96 08/09/21 14:20 95 08/09/21 14:19 08/09/21 14:16 92 - Physical Examination General: No Apparent Distress HEENT: Positive: PERRL Neck: Positive: trachea midline Cardiac: Positive: irregularly irregular Lungs: Positive: Decreased Breath Sounds Neuro: Positive: Grossly Intact Abdomen: Positive: Soft, Active Bowel Sounds Skin: Negative: Rash, Suspicious Lesions, Ulceration Extremities: Present: upper extr. pulses, lower extr. pulses, +1 Edema, warm - Labs and Meds Comprehensive Metabolic Panel 08/10/21 Range/Units 10:45 Sodium 139 (137-145) mmol/L Potassium 3.6 (3.6-5.0) mmol/L Chloride 98.0 (98-107) mmol/L Carbon Dioxide 30 (22-30) mmol/L BUN 36 H (9-20) mg/dL Creatinine 1.5 H (0.8-1.3) mg/dL Glucose 164 H (75-100) mg/dL Calcium 9.1 (8.4-10.2) mg/dL - Imaging and Cardiology EKG: report reviewed Echo: report reviewed - Telemetry EKG Rhythm: Atrial Fibrillation - EKG Supraventricular dysrhythmia: atrial fibrillation
[2021-08-11] MEDS: FUROSEMIDE 40 MG/4 ML INJ IV SCH ×2 (06:03→17:12)
[2021-08-11 06:05] LABS: Hematocrit 40.4 % (35.5-45.6); Hemoglobin 12.7 gm/dl (11.8-15.2); Mean Corpuscular HGB Conc 32 % (32-34); Mean Corpuscular Volume 98 fl (84-94); Platelet Count 152 K/mm3 (140-440); Red Blood Count 4.14 M/mm3 (3.65-5.03); Red Cell Distribution Width 14.1 % (13.2-15.2)
[2021-08-11 06:34] LABS: Calcium 9.5 mg/dL (8.4-10.2)
--- NOTE | 2021-08-11 08:29 | Progress Note ---
Assessment and Plan Assessment and plan: #Atrial fibrillation with RVR -Rate controlled with metoprolol 100 mg 3 times daily and amiodarone gtt -Continue Eliquis 5 mg every 12 -Plan for cardioversion 08/12 #Tachycardia induced cardiomyopathy #Acute systolic heart failure -BNP 4020 -TTE 08/07: LVEF 20 to 30% with moderate to severe global hypokinesis of the left ventricle, right ventricle mildly hypokinetic -Continue Lasix 40 mg IV twice daily -Fluid restriction, daily weights #Hypertension -continue metoprolol -lostartan held due to BENJAMIN, amlodipine held due to soft BP #History of pulmonary embolism -Continue apixaban #Morbid obesity -Counseled on diet and exercise #BENJAMIN-resolved #CKD stage IIIa -Avoid nephrotoxins we will renally dose medications -Continue to monitor #Hypomagnesemia #Hypokalemia -Continue to replete and monitor #Hyperglycemia -No history of diabetes -will continue to monitor through BMP Disposition Plan: Continue medical manage Total Time Spent with Patient (Minutes): 25 minutes History Interval history: No acute events overnight. Patient reports headache. Has been filling up one urinal every 6 hours. Has noticed improvement in edema. Hospitalist Physical - Physical exam Narrative exam: GENERAL: Obese male. Sitting on the side of the bed in no acute distress. HEENT: Normocephalic. Atraumatic. CHEST/LUNGS: CTAB on room air HEART/CARDIOVASCULAR: RRR. No murmur, rubs or gallops appreciated. ABDOMEN: +BS. NT/ND. NEURO: No focal motor deficit. Follows all commands and is ambulatory. EXTREMITIES: No cyanosis or clubbing. 1+ pitting edema to mid gonzalez. PSYCH: Cooperative. - Constitutional Vitals: Temp Pulse Resp BP Pulse Ox 98.1 F 67 20 143/105 94 08/10/21 23:37 08/10/21 23:37 08/10/21 23:37 08/10/21 23:37 08/10/21 23:37 General appearance: Present: no acute distress, well-nourished, obese HEART Score - HEART Score Troponin: Troponin T < 0.010 ng/mL (0.00-0.029) 08/06/21 20:46 Results - Labs CBC & Chem 7: 08/11/21 05:04 08/11/21 05:04 Labs: Laboratory Last Values WBC 5.3 K/mm3 (4.5-11.0) 08/11/21 05:04 RBC 4.14 M/mm3 (3.65-5.03) 08/11/21 05:04 Hgb 12.7 gm/dl (11.8-15.2) 08/11/21 05:04 Hct 40.4 % (35.5-45.6) 08/11/21 05:04 MCV 98 fl (84-94) H 08/11/21 05:04 MCH 31 pg (28-32) 08/11/21 05:04 MCHC 32 % (32-34) 08/11/21 05:04 RDW 14.1 % (13.2-15.2) 08/11/21 05:04 Plt Count 152 K/mm3 (140-440) 08/11/21 05:04 Lymph % (Auto) 27.0 % (13.4-35.0) 08/06/21 20:46 [place] % (Auto) Core Machine Operator 08/09/21 05:30 Eos % (Auto) 1.8 % (0.0-4.3) 08/06/21 20:46 Baso % (Auto) 0.6 % (0.0-1.8) 08/06/21 20:46 Lymph # (Auto) 1.3 K/mm3 (1.2-5.4) 08/06/21 20:46 [place] # (Auto) 0.8 K/mm3 (0.0-0.8) 08/06/21 20:46 Eos # (Auto) 0.1 K/mm3 (0.0-0.4) 08/06/21 20:46 Baso # (Auto) 0.0 K/mm3 (0.0-0.1) 08/06/21 20:46 Add Manual Diff Complete 08/09/21 05:30 Total Counted 100 08/09/21 05:30 Seg Neutrophils % 55.4 % (40.0-70.0) 08/06/21 20:46 Seg Neuts % (Manual) 71.0 % (40.0-70.0) H 08/09/21 05:30 Band Neutrophils % 2.0 % 08/09/21 05:30 Lymphocytes % (Manual) 11.0 % (13.4-35.0) L 08/09/21 05:30 Monocytes % (Manual) 15.0 % (0.0-7.3) H 08/09/21 05:30 Eosinophils % (Manual) 1.0 % (0.0-4.3) 08/09/21 05:30 Nucleated RBC % Not Reportable 08/09/21 05:30 Seg Neutrophils # 2.7 K/mm3 (1.8-7.7) 08/06/21 20:46 Seg Neutrophils # Man 3.3 K/mm3 (1.8-7.7) 08/09/21 05:30 Band Neutrophils # 0.1 K/mm3 08/09/21 05:30 Lymphocytes # (Manual) 0.5 K/mm3 (1.2-5.4) L 08/09/21 05:30 Abs React Lymphs (Man) 0.0 K/mm3 08/09/21 05:30 Monocytes # (Manual) 0.7 K/mm3 (0.0-0.8) 08/09/21 05:30 Eosinophils # (Manual) 0.0 K/mm3 (0.0-0.4) 08/09/21 05:30 Basophils # (Manual) 0.0 K/mm3 (0.0-0.1) 08/09/21 05:30 Metamyelocytes # 0.0 K/mm3 08/09/21 05:30 Myelocytes # 0.0 K/mm3 08/09/21 05:30 Promyelocytes # 0.0 K/mm3 08/09/21 05:30 Blast Cells # 0.0 K/mm3 08/09/21 05:30 WBC Morphology Not Reportable 08/09/21 05:30 Hypersegmented Neuts Not Reportable 08/09/21 05:30 Hyposegmented Neuts Not Reportable 08/09/21 05:30 Hypogranular Neuts Not Reportable 08/09/21 05:30 Smudge Cells Not Reportable 08/09/21 05:30 Toxic Granulation Not Reportable 08/09/21 05:30 Toxic Vacuolation Not Reportable 08/09/21 05:30 Dohle Bodies Not Reportable 08/09/21 05:30 Pelger-Huet Anomaly Not Reportable 08/09/21 05:30 Oj Rods Not Reportable 08/09/21 05:30 Platelet Estimate Consistent w auto 08/09/21 05:30 Clumped Platelets Not Reportable 08/09/21 05:30 Plt Clumps, EDTA Not Reportable 08/09/21 05:30 Large Platelets Not Reportable 08/09/21 05:30 Giant Platelets Not Reportable 08/09/21 05:30 Platelet Satelliting Not Reportable 08/09/21 05:30 Plt Morphology Comment Not Reportable 08/09/21 05:30 RBC Morphology Not Reportable 08/09/21 05:30 Dimorphic RBCs Not Reportable 08/09/21 05:30 Polychromasia Not Reportable 08/09/21 05:30 Hypochromasia Not Reportable 08/09/21 05:30 Poikilocytosis Not Reportable 08/09/21 05:30 Anisocytosis Not Reportable 08/09/21 05:30 Microcytosis Not Reportable 08/09/21 05:30 Macrocytosis Few 08/09/21 05:30 Spherocytes Not Reportable 08/09/21 05:30 Pappenheimer Bodies Not Reportable 08/09/21 05:30 Sickle Cells Not Reportable 08/09/21 05:30 Target Cells Not Reportable 08/09/21 05:30 Tear Drop Cells Not Reportable 08/09/21 05:30 Ovalocytes Not Reportable 08/09/21 05:30 Helmet Cells Not Reportable 08/09/21 05:30 Hooper-[place] Bodies Not Reportable 08/09/21 05:30 [place] Rings Not Reportable 08/09/21 05:30 [place] Cells Not Reportable 08/09/21 05:30 Bite Cells Not Reportable 08/09/21 05:30 Crenated Cell Not Reportable 08/09/21 05:30 Elliptocytes Not Reportable 08/09/21 05:30 Acanthocytes (Spur) Not Reportable 08/09/21 05:30 Rouleaux Not Reportable 08/09/21 05:30 Hemoglobin C Crystals Not Reportable 08/09/21 05:30 Schistocytes Not Reportable 08/09/21 05:30 Malaria parasites Not Reportable 08/09/21 05:30 Cedric Bodies Not Reportable 08/09/21 05:30 Hem Pathologist Commnt No 08/09/21 05:30 PT 15.1 Sec. (12.2-14.9) H 08/07/21 10:13 INR 1.07 (0.87-1.13) 08/07/21 10:13 APTT 28.9 Sec. (24.2-36.6) 08/07/21 10:13 Sodium 138 mmol/L (137-145) 08/11/21 05:04 Potassium 3.8 mmol/L (3.6-5.0) 08/11/21 05:04 Chloride 98.9 mmol/L (98-107) 08/11/21 05:04 Carbon Dioxide 22 mmol/L (22-30) D 08/11/21 05:04 Anion Gap 21 mmol/L 08/11/21 05:04 BUN 37 mg/dL (9-20) H 08/11/21 05:04 Creatinine 1.6 mg/dL (0.8-1.3) H 08/11/21 05:04 Estimated GFR 52 ml/min 08/11/21 05:04 BUN/Creatinine Ratio 23 % 08/11/21 05:04 Glucose 118 mg/dL (75-100) H 08/11/21 05:04 Calcium 9.5 mg/dL (8.4-10.2) 08/11/21 05:04 Phosphorus 3.00 mg/dL (2.5-4.5) 08/10/21 10:45 Magnesium 1.90 mg/dL (1.7-2.3) 08/11/21 05:04 Total Bilirubin 0.50 mg/dL (0.1-1.2) 08/06/21 20:46 Direct Bilirubin 0.2 mg/dL (0-0.2) 08/06/21 20:46 Indirect Bilirubin 0.3 mg/dL 08/06/21 20:46 AST 33 units/L (5-40) 08/06/21 20:46 ALT 51 units/L (7-56) 08/06/21 20:46 Alkaline Phosphatase 53 units/L (35-129) 08/06/21 20:46 Troponin T < 0.010 ng/mL (0.00-0.029) 08/06/21 20:46 NT-Pro-B Natriuret Pep 4020 pg/mL (0-900) H 08/06/21 20:46 Total Protein 6.3 g/dL (6.3-8.2) 08/06/21 20:46 Albumin 3.6 g/dL (3.9-5) L 08/06/21 20:46 Albumin/Globulin Ratio 1.3 % 08/06/21 20:46 Urine Color Yellow (Yellow) 08/06/21 21:09 Urine Turbidity Clear (Clear) 08/06/21 21:09 Urine pH 6.0 (5.0-7.0) 08/06/21 21:09 Ur Specific [place] 1.009 (1.003-1.030) 08/06/21 21:09 Urine Protein 100 mg/dl mg/dL (Negative) 08/06/21 21:09 Urine Glucose (UA) Neg mg/dL (Negative) 08/06/21 21:09 Urine Ketones Neg mg/dL (Negative) 08/06/21 21:09 Urine Blood Neg (Negative) 08/06/21 21:09 Urine Nitrite Neg (Negative) 08/06/21 21:09 Urine Bilirubin Neg (Negative) 08/06/21 21:09 Urine Urobilinogen < 2.0 mg/dL (<2.0) 08/06/21 21:09 Ur Leukocyte Esterase Neg (Negative) 08/06/21 21:09 Urine WBC (Auto) 1.0 /HPF (0.0-6.0) 08/06/21 21:09 Urine RBC (Auto) < 1.0 /HPF (0.0-6.0) 08/06/21 21:09 Urine Osmolality 450 Mosm/kg 08/08/21 17:39 Urine Creatinine 79.4 mg/dL (0.1-20.0) H 08/08/21 17:39 Urine Sodium 62 mmol/L 08/08/21 17:39 [place]/IV: Voiding Method Urinal Active Medications - Current Medications Current Medications: Generic Name Dose Route Start Last Admin Trade Name Freq PRN Reason Stop Dose Admin Acetaminophen 650 mg 08/07/21 01:08 Acetaminophen 325 Mg Tab PO Q4H PRN Pain MILD(1-3)/Fever >100.5/RAMIREZ Albuterol 2.5 mg 08/07/21 01:08 Albuterol 2.5 Mg/3 Ml Nebu IH Q4HRT PRN Shortness Of Breath Apixaban 5 mg 08/07/21 10:00 08/10/21 21:40 Apixaban 5 Mg Tab PO 5 mg Q12HR ALISON Administration Protocol Docusate Sodium 100 mg 08/08/21 22:00 08/10/21 21:40 Docusate Sodium 100 Mg Cap PO 100 mg BID ALISON Administration Famotidine 20 mg 08/07/21 10:00 08/10/21 21:40 Famotidine 20 Mg Tab PO 20 mg BID ALISON Administration Furosemide 40 mg 08/10/21 14:30 08/11/21 06:03 Furosemide 40 Mg/4 Ml Inj IV 40 mg BID@0600,1800 ALISON Administration Hydromorphone HCl 0.5 mg 08/07/21 01:08 08/09/21 17:01 Hydromorphone 1 Mg/1 Ml Inj IV 0.5 mg Q3H PRN Administration Pain , Severe (7-10) Amiodarone HCl 900 mg/ 500 mls @ 33.333 mls/hr 08/07/21 13:30 08/09/21 16:57 Dextrose IV 0.5 mg/min DIRECT ALISON 16.667 mls/hr Administration Protocol 1 MG/MIN Metoprolol Tartrate 100 mg 08/07/21 20:00 08/10/21 21:41 Metoprolol Tartrate 100 Mg Tab PO 100 mg TID ALISON Administration Nitroglycerin 0.4 mg 08/07/21 01:08 Nitroglycerin 0.4 Mg Tab Subl SL .Q5MIN PRN Chest Pain Ondansetron HCl 4 mg 08/07/21 01:08 Ondansetron 4 Mg/2 Ml Inj IV Q8H PRN Nausea And Vomiting Oxycodone/Acetaminophen 1 tab 08/07/21 01:08 Oxycodone /Acetaminophen 5-325mg Tab PO Q6H PRN Pain, Moderate (4-6) Sodium Chloride 10 ml 08/07/21 10:00 08/10/21 21:40 Sodium Chloride 0.9% 10 Ml Flush Syringe IV 10 ml BID ALISON Administration Sodium Chloride 10 ml 08/07/21 01:08 Sodium Chloride 0.9% 10 Ml Flush Syringe IV PRN PRN LINE FLUSH
[2021-08-11] MEDS: DOCUSATE SODIUM 100 MG CAP PO SCH ×2 (09:59→21:49)
[2021-08-11] MEDS: METOPROLOL TARTRATE 100 MG TAB PO SCH ×3 (09:59→21:48)
[2021-08-11] MEDS: FAMOTIDINE 20 MG TAB PO SCH ×2 (09:59→21:49)
[2021-08-11] MEDS: APIXABAN 5 MG TAB PO SCH ×2 (10:00→21:48)
[2021-08-11] MEDS ORDERED: IBUPROFEN 800 MG TAB PO PRN (12:06)
--- NOTE | 2021-08-11 13:02 | Progress Note ---
Assessment and Plan Echo 08/07/2021-EF 25 to 30%, LV systolic function moderately to severely decreased, right ventricle is moderate to severely dilated, right ventricle mildly hypokinetic right atrium is moderately dilated, left atrium is severely dilated. Mild aortic regurgitation, mild mitral regurgitation. Mild tricuspid regurgitation moderate pulmonary hypertension. Ascending aorta is dilated 3.9 cm Nuclear medicine cardiovascular study: 01/29/2021: Pharmacologic stress nuclear study is normal. Stress and rest SPECT images demonstrate homogeneous tracer distribution throughout the myocardium. Gated SPECTimaging reveals normal myocardial thickening and wall motion. The left ventricular ejection fraction was normal Echocardiogram 01/29/2021 -There is normal LV systolic function.LV wall thickness is mildly increased. The estimated left ventricle ejection fraction is 55-60%. Normal left atrial pressure and diastolic function. There is normal right ventricular size, wall dimension, and systolic function. There is mild aortic valve sclerosis without significant stenosis. There is mild aortic regurgitation. There is no mitral regurgitation. There is mild tricuspid regurgitation. The estimated RV systolic pressure is 32.99 mmHg. There is trivial pulmonic regurgitation. The ascending aorta is mildly dilated. Ascending Aortic Diameter: 4 cm. A. fib RVR Hypokalemia New cardiomyopathy (? Tachycardia induced) Acute HFrEF 25-30% BENJAMIN Hypertension Hyperlipidemia H/O pulmonary embolisms (anticoagulated on Eliquis) Plan: Continue amiodarone drip for rate control Continue to hold amlodipine due to soft blood pressures Continue metoprolol 100 mg p.o. 3 times daily. Continue Eliquis for anticoagulation We will hold losartan due to BENJAMIN Plan for cardioversion tomorrow NPO after midnight Patient seen in conjunction with Dr. Brink who agrees with this plan of care. We will continue to follow - Patient Problems (1) Acute HFrEF (heart failure with reduced ejection fraction) Current Visit: Yes Status: Acute (2) Atrial fibrillation with RVR Current Visit: Yes Status: Acute (3) BENJAMIN (acute kidney injury) Current Visit: Yes Status: Acute (4) Cardiomyopathy Current Visit: Yes Status: Acute (5) Hyperlipidemia Current Visit: Yes Status: Acute (6) Hypertension Current Visit: No Status: Acute Subjective Date of service: 08/11/21 Principal diagnosis: Acute HFrEF, Afib w/ RVR Interval history: Patient sitting in recliner and reports breathing has improved afib w/ RVR 100-110s with episodes into 130s Objective Vital Signs Temp Pulse Pulse Pulse Resp BP Pulse Ox 08/11/21 10:00 95 08/11/21 09:59 117 H 151/99 08/11/21 08:59 97.8 F 109 H 20 135/107 94 08/11/21 08:38 101 H 102 H 16 94 08/11/21 04:23 97.8 F 77 16 143/100 93 08/10/21 23:37 98.1 F 67 20 143/105 94 08/10/21 22:00 104 H 95 08/10/21 21:41 128 H 112/84 08/10/21 21:25 95 08/10/21 19:06 97.9 F 64 16 112/84 91 08/10/21 16:00 110 H 08/10/21 15:46 98.2 F 61 16 120/84 93 08/10/21 14:10 114 H - Physical Examination General: No Apparent Distress HEENT: Positive: PERRL Neck: Positive: trachea midline Cardiac: Positive: irregularly irregular Lungs: Positive: Decreased Breath Sounds Neuro: Positive: Grossly Intact Abdomen: Positive: Soft, Active Bowel Sounds Skin: Negative: Rash, Suspicious Lesions, Ulceration Extremities: Present: upper extr. pulses, lower extr. pulses, +1 Edema, warm - Labs and Meds CBC 08/11/21 Range/Units 05:04 WBC 5.3 (4.5-11.0) K/mm3 RBC 4.14 (3.65-5.03) M/mm3 Hgb 12.7 (11.8-15.2) gm/dl Hct 40.4 (35.5-45.6) % Plt Count 152 (140-440) K/mm3 Comprehensive Metabolic Panel 08/11/21 Range/Units 05:04 Sodium 138 (137-145) mmol/L Potassium 3.8 (3.6-5.0) mmol/L Chloride 98.9 (98-107) mmol/L Carbon Dioxide 22 D (22-30) mmol/L BUN 37 H (9-20) mg/dL Creatinine 1.6 H (0.8-1.3) mg/dL Glucose 118 H (75-100) mg/dL Calcium 9.5 (8.4-10.2) mg/dL - Imaging and Cardiology EKG: report reviewed Echo: report reviewed - Telemetry EKG Rhythm: Atrial Fibrillation - EKG Supraventricular dysrhythmia: atrial fibrillation
[2021-08-11] MEDS ORDERED: AMIODARONE 900 MG in DEXTROSE 5% IN WATER 482 ML IV SCH (14:30)
[2021-08-12] MEDS: FUROSEMIDE 40 MG/4 ML INJ IV SCH ×3 (01:21→17:13)
[2021-08-12 06:23] LABS: Calcium 9.1 mg/dL (8.4-10.2)
[2021-08-12] MEDS ORDERED: SODIUM CHLORIDE 0.9% 1000 ML 1,000 ML ONE (08:09)
--- NOTE | 2021-08-12 08:09 | Progress Note ---
Assessment and Plan Assessment and plan: #Atrial fibrillation with RVR -Rate controlled with metoprolol 100 mg 3 times daily and amiodarone gtt -Continue Eliquis 5 mg every 12 -Cardioverted today, will continue to monitor #Tachycardia induced cardiomyopathy #Acute systolic heart failure -BNP 4020 -TTE 08/07: LVEF 20 to 30% with moderate to severe global hypokinesis of the left ventricle, right ventricle mildly hypokinetic -Continue Lasix 40 mg IV twice daily -Fluid restriction, daily weights #Hypertension -continue metoprolol -lostartan held due to BENJAMIN, amlodipine held due to soft BP #History of pulmonary embolism -Continue apixaban #Morbid obesity -Counseled on diet and exercise #BENJAMIN-resolved #CKD stage IIIa -Avoid nephrotoxins we will renally dose medications -Continue to monitor #Hypomagnesemia #Hypokalemia -Continue to replete and monitor #Hyperglycemia -No history of diabetes -will continue to monitor through BMP Disposition Plan: Home in 24-48 hours Total Time Spent with Patient (Minutes): 25 minutes History Interval history: No acute events overnight. Patient reports shortness of breath while ambulating this morning. Continues to have lots of urinary output. Hospitalist Physical - Physical exam Narrative exam: GENERAL: Obese male. Sitting on the side of the bed in no acute distress. HEENT: Nasal cannula at 2 L/min CHEST/LUNGS: Coarse breath sounds bilaterally HEART/CARDIOVASCULAR: RRR. No murmur, rubs or gallops appreciated. ABDOMEN: +BS. NT/ND. EXTREMITIES: No cyanosis or clubbing. 1+ pitting edema to mid gonzalez. PSYCH: Cooperative. - Constitutional Vitals: Temp Pulse Resp BP Pulse Ox 97.9 F 120 H 18 129/98 93 08/12/21 03:33 08/12/21 04:00 08/12/21 03:33 08/12/21 03:33 08/12/21 03:33 General appearance: Present: no acute distress, well-nourished, obese HEART Score - HEART Score Troponin: Troponin T < 0.010 ng/mL (0.00-0.029) 08/06/21 20:46 Results - Labs CBC & Chem 7: 08/11/21 05:04 08/12/21 04:46 Labs: Laboratory Last Values WBC 5.3 K/mm3 (4.5-11.0) 08/11/21 05:04 RBC 4.14 M/mm3 (3.65-5.03) 08/11/21 05:04 Hgb 12.7 gm/dl (11.8-15.2) 08/11/21 05:04 Hct 40.4 % (35.5-45.6) 08/11/21 05:04 MCV 98 fl (84-94) H 08/11/21 05:04 MCH 31 pg (28-32) 08/11/21 05:04 MCHC 32 % (32-34) 08/11/21 05:04 RDW 14.1 % (13.2-15.2) 08/11/21 05:04 Plt Count 152 K/mm3 (140-440) 08/11/21 05:04 Lymph % (Auto) 27.0 % (13.4-35.0) 08/06/21 20:46 [place] % (Auto) Waste Cotton Cleaner 08/09/21 05:30 Eos % (Auto) 1.8 % (0.0-4.3) 08/06/21 20:46 Baso % (Auto) 0.6 % (0.0-1.8) 08/06/21 20:46 Lymph # (Auto) 1.3 K/mm3 (1.2-5.4) 08/06/21 20:46 [place] # (Auto) 0.8 K/mm3 (0.0-0.8) 08/06/21 20:46 Eos # (Auto) 0.1 K/mm3 (0.0-0.4) 08/06/21 20:46 Baso # (Auto) 0.0 K/mm3 (0.0-0.1) 08/06/21 20:46 Add Manual Diff Complete 08/09/21 05:30 Total Counted 100 08/09/21 05:30 Seg Neutrophils % 55.4 % (40.0-70.0) 08/06/21 20:46 Seg Neuts % (Manual) 71.0 % (40.0-70.0) H 08/09/21 05:30 Band Neutrophils % 2.0 % 08/09/21 05:30 Lymphocytes % (Manual) 11.0 % (13.4-35.0) L 08/09/21 05:30 Monocytes % (Manual) 15.0 % (0.0-7.3) H 08/09/21 05:30 Eosinophils % (Manual) 1.0 % (0.0-4.3) 08/09/21 05:30 Nucleated RBC % Not Reportable 08/09/21 05:30 Seg Neutrophils # 2.7 K/mm3 (1.8-7.7) 08/06/21 20:46 Seg Neutrophils # Man 3.3 K/mm3 (1.8-7.7) 08/09/21 05:30 Band Neutrophils # 0.1 K/mm3 08/09/21 05:30 Lymphocytes # (Manual) 0.5 K/mm3 (1.2-5.4) L 08/09/21 05:30 Abs React Lymphs (Man) 0.0 K/mm3 08/09/21 05:30 Monocytes # (Manual) 0.7 K/mm3 (0.0-0.8) 08/09/21 05:30 Eosinophils # (Manual) 0.0 K/mm3 (0.0-0.4) 08/09/21 05:30 Basophils # (Manual) 0.0 K/mm3 (0.0-0.1) 08/09/21 05:30 Metamyelocytes # 0.0 K/mm3 08/09/21 05:30 Myelocytes # 0.0 K/mm3 08/09/21 05:30 Promyelocytes # 0.0 K/mm3 08/09/21 05:30 Blast Cells # 0.0 K/mm3 08/09/21 05:30 WBC Morphology Not Reportable 08/09/21 05:30 Hypersegmented Neuts Not Reportable 08/09/21 05:30 Hyposegmented Neuts Not Reportable 08/09/21 05:30 Hypogranular Neuts Not Reportable 08/09/21 05:30 Smudge Cells Not Reportable 08/09/21 05:30 Toxic Granulation Not Reportable 08/09/21 05:30 Toxic Vacuolation Not Reportable 08/09/21 05:30 Dohle Bodies Not Reportable 08/09/21 05:30 Pelger-Huet Anomaly Not Reportable 08/09/21 05:30 Oj Rods Not Reportable 08/09/21 05:30 Platelet Estimate Consistent w auto 08/09/21 05:30 Clumped Platelets Not Reportable 08/09/21 05:30 Plt Clumps, EDTA Not Reportable 08/09/21 05:30 Large Platelets Not Reportable 08/09/21 05:30 Giant Platelets Not Reportable 08/09/21 05:30 Platelet Satelliting Not Reportable 08/09/21 05:30 Plt Morphology Comment Not Reportable 08/09/21 05:30 RBC Morphology Not Reportable 08/09/21 05:30 Dimorphic RBCs Not Reportable 08/09/21 05:30 Polychromasia Not Reportable 08/09/21 05:30 Hypochromasia Not Reportable 08/09/21 05:30 Poikilocytosis Not Reportable 08/09/21 05:30 Anisocytosis Not Reportable 08/09/21 05:30 Microcytosis Not Reportable 08/09/21 05:30 Macrocytosis Few 08/09/21 05:30 Spherocytes Not Reportable 08/09/21 05:30 Pappenheimer Bodies Not Reportable 08/09/21 05:30 Sickle Cells Not Reportable 08/09/21 05:30 Target Cells Not Reportable 08/09/21 05:30 Tear Drop Cells Not Reportable 08/09/21 05:30 Ovalocytes Not Reportable 08/09/21 05:30 Helmet Cells Not Reportable 08/09/21 05:30 [place] Bodies Not Reportable 08/09/21 05:30 [place] Rings Not Reportable 08/09/21 05:30 [place] Cells Not Reportable 08/09/21 05:30 Bite Cells Not Reportable 08/09/21 05:30 Crenated Cell Not Reportable 08/09/21 05:30 Elliptocytes Not Reportable 08/09/21 05:30 Acanthocytes (Spur) Not Reportable 08/09/21 05:30 Rouleaux Not Reportable 08/09/21 05:30 Hemoglobin C Crystals Not Reportable 08/09/21 05:30 Schistocytes Not Reportable 08/09/21 05:30 Malaria parasites Not Reportable 08/09/21 05:30 Cedric Bodies Not Reportable 08/09/21 05:30 Hem Pathologist Commnt No 08/09/21 05:30 PT 15.1 Sec. (12.2-14.9) H 08/07/21 10:13 INR 1.07 (0.87-1.13) 08/07/21 10:13 APTT 28.9 Sec. (24.2-36.6) 08/07/21 10:13 Sodium 137 mmol/L (137-145) 08/12/21 04:46 Potassium 3.3 mmol/L (3.6-5.0) L 08/12/21 04:46 Chloride 97.3 mmol/L (98-107) L 08/12/21 04:46 Carbon Dioxide 27 mmol/L (22-30) 08/12/21 04:46 Anion Gap 16 mmol/L 08/12/21 04:46 BUN 34 mg/dL (9-20) H 08/12/21 04:46 Creatinine 1.5 mg/dL (0.8-1.3) H 08/12/21 04:46 Estimated GFR 56 ml/min 08/12/21 04:46 BUN/Creatinine Ratio 23 % 08/12/21 04:46 Glucose 124 mg/dL (75-100) H 08/12/21 04:46 Calcium 9.1 mg/dL (8.4-10.2) 08/12/21 04:46 Phosphorus 3.00 mg/dL (2.5-4.5) 08/10/21 10:45 Magnesium 1.90 mg/dL (1.7-2.3) 08/11/21 05:04 Total Bilirubin 0.50 mg/dL (0.1-1.2) 08/06/21 20:46 Direct Bilirubin 0.2 mg/dL (0-0.2) 08/06/21 20:46 Indirect Bilirubin 0.3 mg/dL 08/06/21 20:46 AST 33 units/L (5-40) 08/06/21 20:46 ALT 51 units/L (7-56) 08/06/21 20:46 Alkaline Phosphatase 53 units/L (35-129) 08/06/21 20:46 Troponin T < 0.010 ng/mL (0.00-0.029) 08/06/21 20:46 NT-Pro-B Natriuret Pep 4020 pg/mL (0-900) H 08/06/21 20:46 Total Protein 6.3 g/dL (6.3-8.2) 08/06/21 20:46 Albumin 3.6 g/dL (3.9-5) L 08/06/21 20:46 Albumin/Globulin Ratio 1.3 % 08/06/21 20:46 Urine Color Yellow (Yellow) 08/06/21 21:09 Urine Turbidity Clear (Clear) 08/06/21 21:09 Urine pH 6.0 (5.0-7.0) 08/06/21 21:09 Ur Specific [place] 1.009 (1.003-1.030) 08/06/21 21:09 Urine Protein 100 mg/dl mg/dL (Negative) 08/06/21 21:09 Urine Glucose (UA) Neg mg/dL (Negative) 08/06/21 21:09 Urine Ketones Neg mg/dL (Negative) 08/06/21 21:09 Urine Blood Neg (Negative) 08/06/21 21:09 Urine Nitrite Neg (Negative) 08/06/21 21:09 Urine Bilirubin Neg (Negative) 08/06/21 21:09 Urine Urobilinogen < 2.0 mg/dL (<2.0) 08/06/21 21:09 Ur Leukocyte Esterase Neg (Negative) 08/06/21 21:09 Urine WBC (Auto) 1.0 /HPF (0.0-6.0) 08/06/21 21:09 Urine RBC (Auto) < 1.0 /HPF (0.0-6.0) 08/06/21 21:09 Urine Osmolality 450 Mosm/kg 08/08/21 17:39 Urine Creatinine 79.4 mg/dL (0.1-20.0) H 08/08/21 17:39 Urine Sodium 62 mmol/L 08/08/21 17:39 [place]/IV: Voiding Method Urinal Active Medications - Current Medications Current Medications: Generic Name Dose Route Start Last Admin Trade Name Freq PRN Reason Stop Dose Admin Acetaminophen 650 mg 08/07/21 01:08 Acetaminophen 325 Mg Tab PO Q4H PRN Pain MILD(1-3)/Fever >100.5/RAMIREZ Albuterol 2.5 mg 08/07/21 01:08 Albuterol 2.5 Mg/3 Ml Nebu IH Q4HRT PRN Shortness Of Breath Apixaban 5 mg 08/07/21 10:00 08/11/21 21:48 Apixaban 5 Mg Tab PO 5 mg Q12HR ALISON Administration Protocol Docusate Sodium 100 mg 08/08/21 22:00 08/11/21 21:49 Docusate Sodium 100 Mg Cap PO 100 mg BID ALISON Administration Famotidine 20 mg 08/07/21 10:00 08/11/21 21:49 Famotidine 20 Mg Tab PO 20 mg BID ALISON Administration Furosemide 40 mg 08/10/21 14:30 08/12/21 05:13 Furosemide 40 Mg/4 Ml Inj IV 40 mg BID@0600,1800 ALISON Administration Hydromorphone HCl 0.5 mg 08/07/21 01:08 08/09/21 17:01 Hydromorphone 1 Mg/1 Ml Inj IV 0.5 mg Q3H PRN Administration Pain , Severe (7-10) Amiodarone HCl 900 mg/ 500 mls @ 33.333 mls/hr 08/11/21 14:30 08/11/21 15:24 Dextrose IV 1 mg/min DIRECT ALISON 33.333 mls/hr Administration Protocol 1 MG/MIN Ibuprofen 800 mg 08/11/21 12:06 Ibuprofen 800 Mg Tab PO Q8H PRN Headache Metoprolol Tartrate 100 mg 08/07/21 20:00 08/11/21 21:48 Metoprolol Tartrate 100 Mg Tab PO 100 mg TID ALISON Administration Nitroglycerin 0.4 mg 08/07/21 01:08 Nitroglycerin 0.4 Mg Tab Subl SL .Q5MIN PRN Chest Pain Ondansetron HCl 4 mg 08/07/21 01:08 Ondansetron 4 Mg/2 Ml Inj IV Q8H PRN Nausea And Vomiting Oxycodone/Acetaminophen 1 tab 08/07/21 01:08 Oxycodone /Acetaminophen 5-325mg Tab PO Q6H PRN Pain, Moderate (4-6) Sodium Chloride 10 ml 08/07/21 10:00 08/11/21 21:49 Sodium Chloride 0.9% 10 Ml Flush Syringe IV 10 ml BID ALISON Administration Sodium Chloride 10 ml 08/07/21 01:08 Sodium Chloride 0.9% 10 Ml Flush Syringe IV PRN PRN LINE FLUSH
[2021-08-12] MEDS ORDERED: propofoL 200 MG/20 ML VIAL IV ONE (08:11)
[2021-08-12] MEDS ORDERED: ePHEDrine SULFATE 50 MG/1 ML INJ ONE (08:12)
--- NOTE | 2021-08-12 08:28 | Anesthesia Consultation ---
Anesthesia Consult and Med Hx Date of service: 08/12/21 - Airway Anesthetic Teeth Evaluation: Poor (denies loose teeth) ROM Head & Neck: Adequate Mental/Hyoid Distance: Adequate Mallampati Class: Class III Intubation Access Assessment: Possibly Difficult - Pulmonary Exam CTA: Yes - Cardiac Exam Cardiac Exam: No Murmur (irregular rhythm) - Pre-Operative Health Status ASA Pre-Surgery Classification: ASA3 Proposed Anesthetic Plan: MAC - Pulmonary Hx Smoking: No Hx Respiratory Symptoms: Yes (hx PE on eliquis) SOB: Yes - Cardiovascular System Hx Hypertension: Yes Hx Heart Attack/AMI: No (EF 25-30%) Hx Percutaneous Transluminal Coronary Angioplasty (PTCA): No Hx Cardia Arrhythmia: Yes (a-fib w/ RVR) Hx Pacemaker: No Hx Internal Defibrillator: No - Central Nervous System CVA: No - Endocrine Hx Renal Disease: Yes (BENJAMIN) Hx Liver Disease: No Hx Insulin Dependent Diabetes: No Hx Non-Insulin Dependent Diabetes: No Hx Thyroid Disease: No - Other Systems Hx Cancer: Yes (hx prostate ca; hx renal ca s/p nephrectomy) Hx Obesity: Yes (BMI 39) - Additional Comments Anesthesia Medical History Comments: No hx anesthetic complications. Scheduled for cardioversion.
--- NOTE | 2021-08-12 08:29 | Anesthesia Day of Surgery ---
Anesthesia Day of Surgery - Day of Surgery Patient Examined: Yes Patient H&P Reviewed: Yes Patient is NPO: Yes
[2021-08-12] MEDS ORDERED: SODIUM CHLORIDE 0.9% 500 ML 500 ML IV SCH (09:00)
--- NOTE | 2021-08-12 09:21 | Post Anesthesia Evaluation ---
- Post Anesthesia Evaluation Patient Participated: Yes Airway Patent: Yes Stable Respiratory Function: Yes Nausea/Vomiting: No Temp > 96.8F: Yes Pain Manageable: Yes Adequeate Hydration: Yes Anesthesia Complications: No
[2021-08-12] MEDS: FAMOTIDINE 20 MG TAB PO SCH ×2 (09:58→21:56)
[2021-08-12] MEDS: APIXABAN 5 MG TAB PO SCH ×2 (09:58→21:56)
[2021-08-12] MEDS: DOCUSATE SODIUM 100 MG CAP PO SCH ×2 (09:58→21:56)
[2021-08-12] MEDS: POTASSIUM PHOSPHATE 45 MMOL in SODIUM CHLORIDE 0.9% 500 ML 500 ML IV ONE ×2 (09:59→11:22)
--- NOTE | 2021-08-12 10:49 | Treadmill Report ---
DATE OF SERVICE: 08/12/2021 ELECTIVE ELECTROCARDIOVERSION INDICATION FOR PROCEDURE: The patient is a pleasant 70-year-old -[place] gentleman presented with heart failure, atrial fibrillation, newly found cardiomyopathy, who was found to have AFib with RVR, some question of tachycardia-induced cardiomyopathy. The patient has been on systemic anticoagulation uninterrupted for the past several months, is now appears to be euvolemic, is able to lay flat. We decided to proceed with elective cardioversion. Again, he has had uninterrupted anticoagulation for at least 3 months. Euvolemic. He understands the risks and will proceed. Informed consent was obtained after risks, benefits and alternatives discussed. The patient was brought to the cardiac suite in a postabsorptive state. Anesthesia bedside throughout. Nursing and technical support intern at bedside throughout. Once adequate sedation was achieved, we used 200 biphasic joules x1 to successfully cardiovert him to sinus rhythm. There were no immediate complications. No dysrhythmias. The patient tolerated the procedure well. I attempted to call the patient's son, Dat at [phone] several times, but unsuccessful. We will try later. CONCLUSIONS: Successful elective cardioversion of atrial fibrillation with resumption of sinus rhythm without evident complication. Continue current medications. We will hold AV blockers overnight. The patient's sinus naseem in the 50s at this point. TID: [id number] RECEIPT: [id number] TRINA/CHAO
--- NOTE | 2021-08-12 15:02 | Progress Note ---
Assessment and Plan Echo 08/07/2021-EF 25 to 30%, LV systolic function moderately to severely decreased, right ventricle is moderate to severely dilated, right ventricle mildly hypokinetic right atrium is moderately dilated, left atrium is severely dilated. Mild aortic regurgitation, mild mitral regurgitation. Mild tricuspid regurgitation moderate pulmonary hypertension. Ascending aorta is dilated 3.9 cm Nuclear medicine cardiovascular study: 01/29/2021: Pharmacologic stress nuclear study is normal. Stress and rest SPECT images demonstrate homogeneous tracer distribution throughout the myocardium. Gated SPECTimaging reveals normal myocardial thickening and wall motion. The left ventricular ejection fraction was normal Echocardiogram 01/29/2021 -There is normal LV systolic function.LV wall thickness is mildly increased. The estimated left ventricle ejection fraction is 55-60%. Normal left atrial pressure and diastolic function. There is normal right ventricular size, wall dimension, and systolic function. There is mild aortic valve sclerosis without significant stenosis. There is mild aortic regurgitation. There is no mitral regurgitation. There is mild tricuspid regurgitation. The estimated RV systolic pressure is 32.99 mmHg. There is trivial pulmonic regurgitation. The ascending aorta is mildly dilated. Ascending Aortic Diameter: 4 cm. A. fib RVR Hypokalemia New cardiomyopathy (? Tachycardia induced) Acute HFrEF 25-30% BENJAMIN Hypertension Hyperlipidemia H/O pulmonary embolisms (anticoagulated on Eliquis) Plan: Patient cardioverted from afib RVR to sinus naseem cardia Stop Amio and metoprolol due to bradycardia Continue to hold amlodipine due to soft blood pressures Continue Eliquis for anticoagulation We will hold losartan due to elevated creatinine Patient seen in conjunction with Dr. Murrell who agrees with this plan of care. We will continue to follow - Patient Problems (1) Acute HFrEF (heart failure with reduced ejection fraction) Current Visit: Yes Status: Acute (2) Atrial fibrillation with RVR Current Visit: Yes Status: Acute (3) BENJAMIN (acute kidney injury) Current Visit: Yes Status: Acute (4) Cardiomyopathy Current Visit: Yes Status: Acute (5) Hyperlipidemia Current Visit: Yes Status: Acute (6) Hypertension Current Visit: No Status: Acute Subjective Date of service: 08/12/21 Principal diagnosis: Acute HFrEF, Afib w/ RVR Interval history: Patient for cardioversion this AM Sinus bradycardia 56 on monitor Objective Vital Signs Temp Temp Pulse Pulse Pulse Pulse Pulse 08/12/21 11:49 98.1 F 54 L 08/12/21 11:00 56 L 56 L 08/12/21 10:21 98.1 F 62 08/12/21 10:00 54 L 08/12/21 09:15 51 L 08/12/21 09:00 49 L 08/12/21 08:46 48 L 08/12/21 08:43 98 F 97 H 08/12/21 07:18 97.6 F 118 H 08/12/21 04:00 120 H 08/12/21 03:33 97.9 F 78 08/12/21 00:00 138 H 08/11/21 23:22 97.3 F L 94 H 08/11/21 23:20 59 L 08/11/21 22:00 08/11/21 21:48 93 H 08/11/21 20:00 93 H 08/11/21 19:13 97.9 F 75 08/11/21 16:19 97.8 F 66 Resp Resp Resp BP BP BP BP 08/12/21 11:49 20 131/89 08/12/21 11:00 17 08/12/21 10:21 17 140/66 08/12/21 10:00 08/12/21 09:15 15 128/87 08/12/21 09:00 17 122/89 08/12/21 08:46 14 117/79 08/12/21 08:43 22 127/99 08/12/21 07:18 18 141/106 08/12/21 04:00 08/12/21 03:33 18 129/98 08/12/21 00:00 08/11/21 23:22 18 122/88 08/11/21 23:20 08/11/21 22:00 08/11/21 21:48 143/122 08/11/21 20:00 08/11/21 19:13 18 143/122 08/11/21 16:19 20 132/93 Pulse Ox Pulse Ox Pulse Ox 08/12/21 11:49 98 08/12/21 11:00 95 08/12/21 10:21 96 08/12/21 10:00 08/12/21 09:15 98 97 08/12/21 09:00 98 97 08/12/21 08:46 97 97 08/12/21 08:43 98 08/12/21 07:18 94 08/12/21 04:00 08/12/21 03:33 93 08/12/21 00:00 08/11/21 23:22 95 08/11/21 23:20 98 08/11/21 22:00 95 08/11/21 21:48 08/11/21 20:00 08/11/21 19:13 94 08/11/21 16:19 91 - Physical Examination General: No Apparent Distress HEENT: Positive: PERRL Neck: Positive: trachea midline Cardiac: Positive: Regular Rhythm, Bradycardia Lungs: Positive: Normal Breath Sounds Neuro: Positive: Grossly Intact Abdomen: Positive: Soft, Active Bowel Sounds Skin: Negative: Rash, Suspicious Lesions, Ulceration Extremities: Present: upper extr. pulses, lower extr. pulses, +1 Edema, warm - Labs and Meds Comprehensive Metabolic Panel 08/12/21 Range/Units 04:46 Sodium 137 (137-145) mmol/L Potassium 3.3 L (3.6-5.0) mmol/L Chloride 97.3 L (98-107) mmol/L Carbon Dioxide 27 (22-30) mmol/L BUN 34 H (9-20) mg/dL Creatinine 1.5 H (0.8-1.3) mg/dL Glucose 124 H (75-100) mg/dL Calcium 9.1 (8.4-10.2) mg/dL - Imaging and Cardiology EKG: report reviewed Echo: report reviewed - Telemetry EKG Rhythm: Sinus Bradycardia - EKG Sinus rhythms and dysrhythmias: sinus rhythm
--- NOTE | 2021-08-12 17:48 | Electrocardiograph Report ---
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
--- NOTE | 2021-08-12 17:49 | Electrocardiograph Report ---
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
[2021-08-12] MEDS: METOPROLOL TARTRATE 100 MG TAB PO SCH (22:01)
[2021-08-13 05:15] LABS: Hemoglobin 12.4 gm/dl (11.8-15.2); Mean Corpuscular HGB Conc 32 % (32-34); Mean Corpuscular Volume 98 fl (84-94); Platelet Count 128 K/mm3 (140-440); Red Blood Count 3.97 M/mm3 (3.65-5.03)
[2021-08-13] MEDS: FUROSEMIDE 40 MG/4 ML INJ IV SCH (05:35)
[2021-08-13] MEDS: DOCUSATE SODIUM 100 MG CAP PO SCH ×2 (09:18→21:37)
[2021-08-13] MEDS: APIXABAN 5 MG TAB PO SCH ×2 (09:18→21:37)
[2021-08-13] MEDS: FAMOTIDINE 20 MG TAB PO SCH ×2 (09:19→21:37)
[2021-08-13 10:28] LABS: BUN/Creatinine Ratio 23; Blood Urea Nitrogen 25 mg/dL (9-20); Calcium 8.9 mg/dL (8.4-10.2); Hemolysis Index 22
--- NOTE | 2021-08-13 11:11 | Progress Note ---
Assessment and Plan Assessment and plan: #Atrial fibrillation with RVR -s/p cardioversion 08/13; currently in NSR HR in 60s -amiodarone gtt discontinued -metoprolol held due to bradycardia -continue Eliquis 5 mg BID #Tachycardia induced cardiomyopathy #Acute systolic heart failure -BNP 4020 -TTE 08/07: LVEF 20 to 30% with moderate to severe global hypokinesis of the left ventricle, right ventricle mildly hypokinetic -lasix discontinued, will trial bumex 1mg to assess for improved diuresis -Fluid restriction, daily weights #Hypertension -controlled for now, can consider restarting amlodipine and losartan if worsens -lostartan held due to BENJAMIN, amlodipine held due to soft BP, metoprolol held due to HR #History of pulmonary embolism -Continue apixaban #Morbid obesity -Counseled on diet and exercise #BENJAMIN-resolved #CKD stage IIIa -SCr 1.1 -Avoid nephrotoxins we will renally dose medications -Continue to monitor #Hypomagnesemia #Hypokalemia -Continue to replete and monitor #Hyperglycemia -No history of diabetes -will continue to monitor through BMP Disposition Plan: Home Total Time Spent with Patient (Minutes): 20 minutes History Interval history: No acute events overnight. Patient reports feeling fine. No chest pain or palpitations. Has not noticed a difference in his lower extremity swelling. Hospitalist Physical - Physical exam Narrative exam: GENERAL: Obese male. Sitting on the side of the bed in no acute distress. HEENT: Nasal cannula at 2 L/min CHEST/LUNGS: Coarse breath sounds bilaterally HEART/CARDIOVASCULAR: RRR. No murmur, rubs or gallops appreciated. ABDOMEN: +BS. NT/ND. EXTREMITIES: No cyanosis or clubbing. 1+ pitting edema to mid gonzalez. PSYCH: Cooperative. - Constitutional Vitals: Temp Pulse Resp BP Pulse Ox 98.5 F 68 20 161/98 99 08/13/21 08:20 08/13/21 08:20 08/13/21 08:20 08/13/21 08:20 08/13/21 09:07 General appearance: Present: no acute distress, well-nourished, obese HEART Score - HEART Score Troponin: Troponin T < 0.010 ng/mL (0.00-0.029) 08/06/21 20:46 Results - Labs CBC & Chem 7: 08/13/21 04:35 08/13/21 09:38 Labs: Laboratory Last Values WBC 5.3 K/mm3 (4.5-11.0) 08/13/21 04:35 RBC 3.97 M/mm3 (3.65-5.03) 08/13/21 04:35 Hgb 12.4 gm/dl (11.8-15.2) 08/13/21 04:35 Hct 39.0 % (35.5-45.6) 08/13/21 04:35 MCV 98 fl (84-94) H 08/13/21 04:35 MCH 31 pg (28-32) 08/13/21 04:35 MCHC 32 % (32-34) 08/13/21 04:35 RDW 14.0 % (13.2-15.2) 08/13/21 04:35 Plt Count 128 K/mm3 (140-440) L 08/13/21 04:35 Lymph % (Auto) 27.0 % (13.4-35.0) 08/06/21 20:46 [place] % (Auto) Commercial Project Manager 08/09/21 05:30 Eos % (Auto) 1.8 % (0.0-4.3) 08/06/21 20:46 Baso % (Auto) 0.6 % (0.0-1.8) 08/06/21 20:46 Lymph # (Auto) 1.3 K/mm3 (1.2-5.4) 08/06/21 20:46 [place] # (Auto) 0.8 K/mm3 (0.0-0.8) 08/06/21 20:46 Eos # (Auto) 0.1 K/mm3 (0.0-0.4) 08/06/21 20:46 Baso # (Auto) 0.0 K/mm3 (0.0-0.1) 08/06/21 20:46 Add Manual Diff Complete 08/09/21 05:30 Total Counted 100 08/09/21 05:30 Seg Neutrophils % 55.4 % (40.0-70.0) 08/06/21 20:46 Seg Neuts % (Manual) 71.0 % (40.0-70.0) H 08/09/21 05:30 Band Neutrophils % 2.0 % 08/09/21 05:30 Lymphocytes % (Manual) 11.0 % (13.4-35.0) L 08/09/21 05:30 Monocytes % (Manual) 15.0 % (0.0-7.3) H 08/09/21 05:30 Eosinophils % (Manual) 1.0 % (0.0-4.3) 08/09/21 05:30 Nucleated RBC % Not Reportable 08/09/21 05:30 Seg Neutrophils # 2.7 K/mm3 (1.8-7.7) 08/06/21 20:46 Seg Neutrophils # Man 3.3 K/mm3 (1.8-7.7) 08/09/21 05:30 Band Neutrophils # 0.1 K/mm3 08/09/21 05:30 Lymphocytes # (Manual) 0.5 K/mm3 (1.2-5.4) L 08/09/21 05:30 Abs React Lymphs (Man) 0.0 K/mm3 08/09/21 05:30 Monocytes # (Manual) 0.7 K/mm3 (0.0-0.8) 08/09/21 05:30 Eosinophils # (Manual) 0.0 K/mm3 (0.0-0.4) 08/09/21 05:30 Basophils # (Manual) 0.0 K/mm3 (0.0-0.1) 08/09/21 05:30 Metamyelocytes # 0.0 K/mm3 08/09/21 05:30 Myelocytes # 0.0 K/mm3 08/09/21 05:30 Promyelocytes # 0.0 K/mm3 08/09/21 05:30 Blast Cells # 0.0 K/mm3 08/09/21 05:30 WBC Morphology Not Reportable 08/09/21 05:30 Hypersegmented Neuts Not Reportable 08/09/21 05:30 Hyposegmented Neuts Not Reportable 08/09/21 05:30 Hypogranular Neuts Not Reportable 08/09/21 05:30 Smudge Cells Not Reportable 08/09/21 05:30 Toxic Granulation Not Reportable 08/09/21 05:30 Toxic Vacuolation Not Reportable 08/09/21 05:30 Dohle Bodies Not Reportable 08/09/21 05:30 Pelger-Huet Anomaly Not Reportable 08/09/21 05:30 Oj Rods Not Reportable 08/09/21 05:30 Platelet Estimate Consistent w auto 08/09/21 05:30 Clumped Platelets Not Reportable 08/09/21 05:30 Plt Clumps, EDTA Not Reportable 08/09/21 05:30 Large Platelets Not Reportable 08/09/21 05:30 Giant Platelets Not Reportable 08/09/21 05:30 Platelet Satelliting Not Reportable 08/09/21 05:30 Plt Morphology Comment Not Reportable 08/09/21 05:30 RBC Morphology Not Reportable 08/09/21 05:30 Dimorphic RBCs Not Reportable 08/09/21 05:30 Polychromasia Not Reportable 08/09/21 05:30 Hypochromasia Not Reportable 08/09/21 05:30 Poikilocytosis Not Reportable 08/09/21 05:30 Anisocytosis Not Reportable 08/09/21 05:30 Microcytosis Not Reportable 08/09/21 05:30 Macrocytosis Few 08/09/21 05:30 Spherocytes Not Reportable 08/09/21 05:30 Pappenheimer Bodies Not Reportable 08/09/21 05:30 Sickle Cells Not Reportable 08/09/21 05:30 Target Cells Not Reportable 08/09/21 05:30 Tear Drop Cells Not Reportable 08/09/21 05:30 Ovalocytes Not Reportable 08/09/21 05:30 Helmet Cells Not Reportable 08/09/21 05:30 [place] Bodies Not Reportable 08/09/21 05:30 [place] Rings Not Reportable 08/09/21 05:30 Jake Cells Not Reportable 08/09/21 05:30 Bite Cells Not Reportable 08/09/21 05:30 Crenated Cell Not Reportable 08/09/21 05:30 Elliptocytes Not Reportable 08/09/21 05:30 Acanthocytes (Spur) Not Reportable 08/09/21 05:30 Rouleaux Not Reportable 08/09/21 05:30 Hemoglobin C Crystals Not Reportable 08/09/21 05:30 Schistocytes Not Reportable 08/09/21 05:30 Malaria parasites Not Reportable 08/09/21 05:30 Cedric Bodies Not Reportable 08/09/21 05:30 Hem Pathologist Commnt No 08/09/21 05:30 PT 15.1 Sec. (12.2-14.9) H 08/07/21 10:13 INR 1.07 (0.87-1.13) 08/07/21 10:13 APTT 28.9 Sec. (24.2-36.6) 08/07/21 10:13 Sodium 141 mmol/L (137-145) 08/13/21 09:38 Potassium 3.5 mmol/L (3.6-5.0) L 08/13/21 09:38 Chloride 100.0 mmol/L (98-107) 08/13/21 09:38 Carbon Dioxide 29 mmol/L (22-30) 08/13/21 09:38 Anion Gap 16 mmol/L 08/13/21 09:38 BUN 25 mg/dL (9-20) H 08/13/21 09:38 Creatinine 1.1 mg/dL (0.8-1.3) 08/13/21 09:38 Estimated GFR > 60 ml/min 08/13/21 09:38 BUN/Creatinine Ratio 23 % 08/13/21 09:38 Glucose 108 mg/dL (75-100) H 08/13/21 09:38 Calcium 8.9 mg/dL (8.4-10.2) 08/13/21 09:38 Phosphorus 3.00 mg/dL (2.5-4.5) 08/10/21 10:45 Magnesium 1.90 mg/dL (1.7-2.3) 08/11/21 05:04 Total Bilirubin 0.50 mg/dL (0.1-1.2) 08/06/21 20:46 Direct Bilirubin 0.2 mg/dL (0-0.2) 08/06/21 20:46 Indirect Bilirubin 0.3 mg/dL 08/06/21 20:46 AST 33 units/L (5-40) 08/06/21 20:46 ALT 51 units/L (7-56) 08/06/21 20:46 Alkaline Phosphatase 53 units/L (35-129) 08/06/21 20:46 Troponin T < 0.010 ng/mL (0.00-0.029) 08/06/21 20:46 NT-Pro-B Natriuret Pep 4020 pg/mL (0-900) H 08/06/21 20:46 Total Protein 6.3 g/dL (6.3-8.2) 08/06/21 20:46 Albumin 3.6 g/dL (3.9-5) L 08/06/21 20:46 Albumin/Globulin Ratio 1.3 % 08/06/21 20:46 Urine Color Yellow (Yellow) 08/06/21 21:09 Urine Turbidity Clear (Clear) 08/06/21 21:09 Urine pH 6.0 (5.0-7.0) 08/06/21 21:09 Ur Specific [place] 1.009 (1.003-1.030) 08/06/21 21:09 Urine Protein 100 mg/dl mg/dL (Negative) 08/06/21 21:09 Urine Glucose (UA) Neg mg/dL (Negative) 08/06/21 21:09 Urine Ketones Neg mg/dL (Negative) 08/06/21 21:09 Urine Blood Neg (Negative) 08/06/21 21:09 Urine Nitrite Neg (Negative) 08/06/21 21:09 Urine Bilirubin Neg (Negative) 08/06/21 21:09 Urine Urobilinogen < 2.0 mg/dL (<2.0) 08/06/21 21:09 Ur Leukocyte Esterase Neg (Negative) 08/06/21 21:09 Urine WBC (Auto) 1.0 /HPF (0.0-6.0) 08/06/21 21:09 Urine RBC (Auto) < 1.0 /HPF (0.0-6.0) 08/06/21 21:09 Urine Osmolality 450 Mosm/kg 08/08/21 17:39 Urine Creatinine 79.4 mg/dL (0.1-20.0) H 08/08/21 17:39 Urine Sodium 62 mmol/L 08/08/21 17:39 [place]/IV: Voiding Method Urinal Active Medications - Current Medications Current Medications: Generic Name Dose Route Start Last Admin Trade Name Freq PRN Reason Stop Dose Admin Acetaminophen 650 mg 08/07/21 01:08 Acetaminophen 325 Mg Tab PO Q4H PRN Pain MILD(1-3)/Fever >100.5/RAMIREZ Albuterol 2.5 mg 08/07/21 01:08 Albuterol 2.5 Mg/3 Ml Nebu IH Q4HRT PRN Shortness Of Breath Apixaban 5 mg 08/07/21 10:00 08/13/21 09:18 Apixaban 5 Mg Tab PO 5 mg Q12HR ALISON Administration Protocol Docusate Sodium 100 mg 08/08/21 22:00 08/13/21 09:18 Docusate Sodium 100 Mg Cap PO 100 mg BID ALISON Administration Famotidine 20 mg 08/07/21 10:00 08/13/21 09:19 Famotidine 20 Mg Tab PO 20 mg BID ALISON Administration Furosemide 40 mg 08/10/21 14:30 08/13/21 05:35 Furosemide 40 Mg/4 Ml Inj IV 40 mg BID@0600,1800 ALISON Administration Hydromorphone HCl 0.5 mg 08/07/21 01:08 08/09/21 17:01 Hydromorphone 1 Mg/1 Ml Inj IV 0.5 mg Q3H PRN Administration Pain , Severe (7-10) Ibuprofen 800 mg 08/11/21 12:06 Ibuprofen 800 Mg Tab PO Q8H PRN Headache Nitroglycerin 0.4 mg 08/07/21 01:08 Nitroglycerin 0.4 Mg Tab Subl SL .Q5MIN PRN Chest Pain Ondansetron HCl 4 mg 08/07/21 01:08 Ondansetron 4 Mg/2 Ml Inj IV Q8H PRN Nausea And Vomiting Oxycodone/Acetaminophen 1 tab 08/07/21 01:08 Oxycodone /Acetaminophen 5-325mg Tab PO Q6H PRN Pain, Moderate (4-6) Sodium Chloride 10 ml 08/07/21 10:00 08/13/21 09:19 Sodium Chloride 0.9% 10 Ml Flush Syringe IV 10 ml BID ALISON Administration Sodium Chloride 10 ml 08/07/21 01:08 Sodium Chloride 0.9% 10 Ml Flush Syringe IV PRN PRN LINE FLUSH Nutrition/Malnutrition Assess - Dietary Evaluation Nutrition/Malnutrition Findings: Nutrition Notes Start: 08/13/21 09:13 Freq: Status: Active Protocol: Document 08/13/21 09:13 GB (Rec: 08/13/21 09:21 GB [id number]) Nutrition Notes Need for Assessment generated from: LOS Initial or Follow up Assessment Current Diagnosis Acute Kidney Injury, Hypertension,Heart Failure, Hyperlipidemia Other Pertinent Diagnosis Afib Current Diet Cardiac Labs/Tests 08/12: K 3.3, BUN 34, creatinine 1.5, glucose 124 Pertinent Medications furosemide Height 5 ft 11 in Weight 128.4 kg [place] Body Weight (kg) 78.18 BMI 39.4 Intake Prior to Admission Good Weight change and time frame 08/06: 134.717kg 08/12: 128.4kg change of -6.317kg for -4.6% loss. Weight change can be r/ t fluid therapy (lasix) Weight Status Obese Subjective/Other Information Last BM: 08/09, documented constipation PO intake of meals: 75-100% Percent of energy/protein needs met: 75% or greater r/t to current PO intake of meals. Burn Absent Trauma Absent GI Symptoms Constipation Food Allergy No Skin Integrity/Comment No pressure injuries reported Current % PO Good (75-100%) Minimum of two criteria No #1 Nutrition Diagnosis No nutrition diagnosis at this time Etiology LOS As Evidenced by Signs and Symptoms good po, wt fluctuations r/t fluid therapy Is patient on ventilator? No Is Patient Ambulatory and/or Out of Bed Yes REE-([facility]-ambulatory/OOB) [ 2685.969 [id number]] Calculation Used for Recommendations [facility] Additional Notes Protein: 0.6-0.8 g/kg @ 128k-102g Fluids: 1 ml/kcal or per MD Nutrition Intervention Change Diet Order: Continue Cardiac Nutrition Support: n/a Add Supplement/Snack (indicate name/kcal n/a /protein ) Goal #1 PO intake of meals to maintain at 75% or greater daily during LOS Revisit per MD consult or patient Sign Off request:
[2021-08-13] MEDS ORDERED: POTASSIUM CHLORIDE ER 20 MEQ TAB PO ONE (11:45)
[2021-08-13] MEDS ORDERED: BUMETANIDE 1 MG/4 ML INJ IV NR (13:30)
--- NOTE | 2021-08-13 15:21 | Progress Note ---
Assessment and Plan Echo 08/07/2021-EF 25 to 30%, LV systolic function moderately to severely decreased, right ventricle is moderate to severely dilated, right ventricle mildly hypokinetic right atrium is moderately dilated, left atrium is severely dilated. Mild aortic regurgitation, mild mitral regurgitation. Mild tricuspid regurgitation moderate pulmonary hypertension. Ascending aorta is dilated 3.9 cm Nuclear medicine cardiovascular study: 01/29/2021: Pharmacologic stress nuclear study is normal. Stress and rest SPECT images demonstrate homogeneous tracer distribution throughout the myocardium. Gated SPECTimaging reveals normal myocardial thickening and wall motion. The left ventricular ejection fraction was normal Echocardiogram 01/29/2021 -There is normal LV systolic function.LV wall thickness is mildly increased. The estimated left ventricle ejection fraction is 55-60%. Normal left atrial pressure and diastolic function. There is normal right ventricular size, wall dimension, and systolic function. There is mild aortic valve sclerosis without significant stenosis. There is mild aortic regurgitation. There is no mitral regurgitation. There is mild tricuspid regurgitation. The estimated RV systolic pressure is 32.99 mmHg. There is trivial pulmonic regurgitation. The ascending aorta is mildly dilated. Ascending Aortic Diameter: 4 cm. A. fib RVR Hypokalemia New cardiomyopathy (? Tachycardia induced) Acute HFrEF 25-30% BENJAMIN Hypertension Hyperlipidemia H/O pulmonary embolisms (anticoagulated on Eliquis) Plan: Telemetry reviewed: Patient remained in normal sinus rhythm with PVCs on monitor Initiate amnio p.o. 200 mg daily and metoprolol 50 mg p.o. twice daily Resume a losartan 100 mg p.o. daily Continue Eliquis for anticoagulation Continue diuresis Due to patient's decreased EF and PVCs on the monitor order for LifeVest has been placed Patient seen in conjunction with Dr. Murrell who agrees with this plan of care. We will continue to follow - Patient Problems (1) Acute HFrEF (heart failure with reduced ejection fraction) Current Visit: Yes Status: Acute (2) Atrial fibrillation with RVR Current Visit: Yes Status: Acute (3) BENJAMIN (acute kidney injury) Current Visit: Yes Status: Acute (4) Cardiomyopathy Current Visit: Yes Status: Acute (5) Hyperlipidemia Current Visit: Yes Status: Acute (6) Hypertension Current Visit: No Status: Acute Subjective Date of service: 08/13/21 Principal diagnosis: Acute HFrEF, Afib w/ RVR Interval history: Patient sitting in bed no acute distress with no cardiac complaints Sinus rhythm 68 on monitor with PVCs Objective Vital Signs Temp Pulse Pulse Pulse Resp BP BP 08/13/21 11:00 98.3 F 69 68 68 20 144/92 08/13/21 09:07 08/13/21 08:20 98.5 F 68 20 161/98 08/13/21 06:00 63 08/13/21 03:40 98.0 F 63 18 156/96 08/13/21 02:00 61 08/12/21 23:45 98.6 F 69 18 151/94 08/12/21 23:00 61 61 08/12/21 22:00 61 08/12/21 19:38 97.7 F 64 18 141/91 08/12/21 18:00 52 L 08/12/21 16:02 97.3 F L 56 L 20 136/92 Pulse Ox 08/13/21 11:00 98 08/13/21 09:07 99 08/13/21 08:20 100 08/13/21 06:00 08/13/21 03:40 97 08/13/21 02:00 08/12/21 23:45 90 08/12/21 23:00 95 08/12/21 22:00 08/12/21 19:38 100 08/12/21 18:00 08/12/21 16:02 98 - Physical Examination General: No Apparent Distress HEENT: Positive: PERRL Neck: Positive: trachea midline Cardiac: Positive: Reg Rate and Rhythm Lungs: Positive: Normal Breath Sounds Neuro: Positive: Grossly Intact Abdomen: Positive: Soft, Active Bowel Sounds Skin: Negative: Rash, Suspicious Lesions, Ulceration Extremities: Present: upper extr. pulses, lower extr. pulses, +2 Edema, warm - Labs and Meds CBC 08/13/21 Range/Units 04:35 WBC 5.3 (4.5-11.0) K/mm3 RBC 3.97 (3.65-5.03) M/mm3 Hgb 12.4 (11.8-15.2) gm/dl Hct 39.0 (35.5-45.6) % Plt Count 128 L (140-440) K/mm3 Comprehensive Metabolic Panel 08/13/21 08/13/21 Range/Units 04:35 09:38 Sodium 141 (137-145) mmol/L Potassium 3.5 L (3.6-5.0) mmol/L Chloride 100.0 (98-107) mmol/L Carbon Dioxide 29 (22-30) mmol/L BUN 25 H (9-20) mg/dL Creatinine 1.1 1.1 (0.8-1.3) mg/dL Glucose 108 H (75-100) mg/dL Calcium 8.9 (8.4-10.2) mg/dL - Imaging and Cardiology EKG: report reviewed Echo: report reviewed - Telemetry EKG Rhythm: Sinus Rhythm - EKG Sinus rhythms and dysrhythmias: sinus rhythm
[2021-08-13] MEDS ORDERED: METOPROLOL TARTRATE 50 MG TAB PO SCH (16:00)
[2021-08-13] MEDS: AMIODARONE 200 MG TAB PO SCH (16:17)
[2021-08-13] MEDS ORDERED: metOLazone 5 MG TAB PO ONE (17:30)
[2021-08-13] MEDS: METOPROLOL TARTRATE 25 MG TAB PO SCH ×2 (18:00→21:36)
[2021-08-14 05:51] LABS: BUN/Creatinine Ratio 17; Blood Urea Nitrogen 19 mg/dL (9-20); Calcium 8.7 mg/dL (8.4-10.2); Hemolysis Index 4
[2021-08-14] MEDS: METOPROLOL TARTRATE 25 MG TAB PO SCH (09:28)
[2021-08-14] MEDS: DOCUSATE SODIUM 100 MG CAP PO SCH (09:28)
[2021-08-14] MEDS: APIXABAN 5 MG TAB PO SCH (09:28)
[2021-08-14] MEDS: AMIODARONE 200 MG TAB PO SCH (09:28)
[2021-08-14] MEDS: FAMOTIDINE 20 MG TAB PO SCH (09:28)
[2021-08-14] MEDS ORDERED: LOSARTAN 50 MG TAB PO SCH (10:00)
--- NOTE | 2021-08-14 12:58 | Discharge Summary ---
Providers - Providers Date of Admission: 08/07/21 11:29 Date of discharge: 08/14/21 Attending physician: CHIRAG GRAVES MD 08/07/21 01:08 Consult to Physician [CONS] Routine Comment: Consulting Provider: SADIA DOMINGO Physician Instructions: Reason For Exam: chf 08/11/21 15:38 Physical Therapy Evaluation and Treat [CONS] Routine Comment: Reason For Exam: Eval and Treat Primary care physician: AYO WYLIE Hospitalization Condition: Fair Disposition: 01 HOME / SELF CARE / HOMELESS Exam - Constitutional Vitals: Temp Pulse Resp BP Pulse Ox 98.0 F 61 20 137/89 97 08/14/21 11:11 08/14/21 11:11 08/14/21 11:11 08/14/21 11:11 08/14/21 11:11 Plan Care Plan Goals: Please follow-up with primary care within 1 week for blood work. Start taking Bumex 1 mg twice a day instead of Lasix. Wear LifeVest for 3 months. Follow-up with Cardiology in the next 2 weeks. Follow up with: AYO WYLIE MD [Primary Care Provider] - 3-5 Days Prescriptions: Bumetanide [Bumex 1 mg tab] 1 mg PO 0600,1800 30 Days #60 tablet Amiodarone [Cordarone 200 MG TAB] 200 mg PO DAILY 30 Days #30 tablet Losartan [Cozaar] 100 mg PO QDAY 30 Days #30 tablet Apixaban [Eliquis] 5 mg PO Q12HR 30 Days #60 tablet Metoprolol [Lopressor TAB] 25 mg PO BID 30 Days #60 tablet Nitroglycerin [Nitrostat] 0.4 mg SL .Q5MIN PRN 30 Days #30 tablet PRN Reason: Chest Pain
--- NOTE | 2021-08-14 13:34 | Progress Note ---
Assessment and Plan Echo 08/07/2021-EF 25 to 30%, LV systolic function moderately to severely decreased, right ventricle is moderate to severely dilated, right ventricle mildly hypokinetic right atrium is moderately dilated, left atrium is severely dilated. Mild aortic regurgitation, mild mitral regurgitation. Mild tricuspid regurgitation moderate pulmonary hypertension. Ascending aorta is dilated 3.9 cm Nuclear medicine cardiovascular study: 01/29/2021: Pharmacologic stress nuclear study is normal. Stress and rest SPECT images demonstrate homogeneous tracer distribution throughout the myocardium. Gated SPECTimaging reveals normal myocardial thickening and wall motion. The left ventricular ejection fraction was normal Echocardiogram 01/29/2021 -There is normal LV systolic function.LV wall thickness is mildly increased. The estimated left ventricle ejection fraction is 55-60%. Normal left atrial pressure and diastolic function. There is normal right ventricular size, wall dimension, and systolic function. There is mild aortic valve sclerosis without significant stenosis. There is mild aortic regurgitation. There is no mitral regurgitation. There is mild tricuspid regurgitation. The estimated RV systolic pressure is 32.99 mmHg. There is trivial pulmonic regurgitation. The ascending aorta is mildly dilated. Ascending Aortic Diameter: 4 cm. A. fib RVR Hypokalemia New cardiomyopathy (? Tachycardia induced) Acute HFrEF 25-30% BENJAMIN Hypertension Hyperlipidemia H/O pulmonary embolisms (anticoagulated on Eliquis) Plan: Telemetry reviewed: Patient remains in normal sinus rhythm with PVCs on monitor Continue amnio p.o. 200 mg daily and metoprolol 50 mg p.o. twice daily Continue a losartan 100 mg p.o. daily Continue Eliquis for anticoagulation Upon discharge patient should be on Bumex 1mg PO BID for diuresis Lifevest has been ordered for patient. Patient is scheduled for labs on 08/21/2021 at 10:30 AM in our [place] location Patient has a follow-up with Dr. Canales, [facility], on 08/24/2021 at 2 PM and in our location. Phone [phone] Patient seen in conjunction with Dr. Murrell who agrees with this plan of care. - Patient Problems (1) Acute HFrEF (heart failure with reduced ejection fraction) Current Visit: Yes Status: Acute (2) Atrial fibrillation with RVR Current Visit: Yes Status: Acute (3) BENJAMIN (acute kidney injury) Current Visit: Yes Status: Acute (4) Cardiomyopathy Current Visit: Yes Status: Acute (5) Hyperlipidemia Current Visit: Yes Status: Acute (6) Hypertension Current Visit: No Status: Acute Subjective Date of service: 08/14/21 Principal diagnosis: Acute HFrEF, Afib w/ RVR Interval history: Patient sitting in bed no acute distress with no cardiac complaints Sinus rhythm 70s on monitor with PVCs UOP= -1968 Objective Vital Signs Temp Pulse Pulse Pulse Resp BP Pulse Ox 08/14/21 11:11 98.0 F 61 20 137/89 97 08/14/21 07:52 98.2 F 71 20 151/109 96 08/14/21 07:49 96 08/14/21 06:00 58 L 08/14/21 05:18 98.0 F 72 18 179/111 97 08/14/21 02:00 62 08/13/21 23:52 98.2 F 64 18 141/81 100 08/13/21 23:00 68 68 20 98 08/13/21 22:00 62 08/13/21 21:36 63 157/92 08/13/21 19:11 98.4 F 63 18 157/92 98 08/13/21 18:00 68 130/82 08/13/21 16:00 98.2 F 72 22 130/82 100 - Physical Examination General: No Apparent Distress HEENT: Positive: PERRL Neck: Positive: trachea midline Cardiac: Positive: Reg Rate and Rhythm Lungs: Positive: Normal Breath Sounds Neuro: Positive: Grossly Intact Abdomen: Positive: Soft, Active Bowel Sounds Skin: Negative: Rash, Suspicious Lesions, Ulceration Extremities: Present: upper extr. pulses, lower extr. pulses, +2 Edema, warm - Labs and Meds Comprehensive Metabolic Panel 08/14/21 Range/Units 05:09 Sodium 142 (137-145) mmol/L Potassium 3.6 (3.6-5.0) mmol/L Chloride 100.6 (98-107) mmol/L Carbon Dioxide 32 H (22-30) mmol/L BUN 19 (9-20) mg/dL Creatinine 1.1 (0.8-1.3) mg/dL Glucose 103 H (75-100) mg/dL Calcium 8.7 (8.4-10.2) mg/dL - Imaging and Cardiology EKG: report reviewed Echo: report reviewed - Telemetry EKG Rhythm: Sinus Rhythm - EKG Sinus rhythms and dysrhythmias: sinus rhythm Ventricular dysrhythmias: ventricular premature com
[2021-08-14 15:58] VITALS: BP 155/99
[2021-08-14] MEDS ORDERED: BUMETANIDE 1 MG TAB PO SCH (18:00)
== END 2021-08-14 19:30 | disposition home or self-care (01) | DRG 291 ==
LOC: ED 19:01 → 3A 23:57 → 4A 08-07 02:14 → OBSVTOIN 08-07 11:29 → CC1 08-07 13:18 → 4A 08-09 13:49
PROVIDERS: ADMIT Hospitalist; ATTEND Student in an Organized Health Care Education/Training Program
DX: I11.0 Hypertensive heart disease with heart failure (principal); I50.21 Acute systolic (congestive) heart failure; N17.0 Acute kidney failure with tubular necrosis; E78.5 Hyperlipidemia, unspecified; I48.91 Unspecified atrial fibrillation; E87.6 Hypokalemia; Z86.711 Personal history of pulmonary embolism; Z20.822 Contact with and (suspected) exposure to COVID-19; D72.819 Decreased white blood cell count, unspecified; E83.42 Hypomagnesemia; E78.00 Pure hypercholesterolemia, unspecified; N40.0 Benign prostatic hyperplasia without lower urinary tract symptoms; I42.9 Cardiomyopathy, unspecified; E87.5 Hyperkalemia; R73.9 Hyperglycemia, unspecified
CPT/HCPCS: 36415; 71045; 80048; 80076; 81001; 82565; 82570; 83735; 83880; 83935; 84100; 84300; 84484; 85007; 85025; 85027; 85610; 85730; 92960; 93005; 93306; 94640; 94760; G0378; J0282; J1170; J1644; J1940; J2704; J3475; J3480; J7030; J7040; J7060